=== PATIENT | male | born 1985 | race Caucasian/White ===

== ENCOUNTER 2017-03-08 05:43 | Inpatient (IN) | payer BC ==
[2017-03-08 06:27] LABS: Basophils % (A) 1 %; CHCM 34.6; Eosinophils # (A) 0.3 k/uL (0-0.7); Eosinophils % (A) 4 %; HCT 45.6 % (39.0-53.0); HDW 2.89; HGB 15.7 gm/dL (13.0-17.5); Luc # (Auto) 0.15; Luc % (Auto) 2; Lymphocytes # (A) 2.8 k/uL (1.0-4.8); Lymphocytes % (A) 38 %; MCH 28.9 pg (25.0-35.0); MCHC 34.4 g/dL (31.0-37.0); Mean Platelet Volume 6.7; Monocytes # (A) 0.5 k/uL (0-1.0); Monocytes % (A) 7 %; Neutrophils # (A) 3.5 k/uL (1.3-7.7); Neutrophils % (A) 48 %; RBC 5.42 m/uL (4.30-5.90); WBC 7.2 k/uL (3.8-10.6); WBC (Perox) 7.04
[2017-03-08] MEDS ORDERED: NITROGLYCERIN SL TABS 0.4 MG TAB SUBLINGUAL PRN ×2 (06:28→17:43)
[2017-03-08] MEDS ORDERED: HEPARIN SODIUM,PORCINE 5,000 UNIT/ML 1 ML VIAL IV PRN (06:28)
[2017-03-08] MEDS ORDERED: MORPHINE SULFATE 4 MG/ML SYRINGE IV PRN (06:28)
[2017-03-08] MEDS ORDERED: ASPIRIN 81 MG CHEW PO STA (06:28)
[2017-03-08] MEDS ORDERED: HEPARIN SODIUM,PORCINE 5,000 UNIT/ML 1 ML VIAL IV ONE (06:28)
--- NOTE | 2017-03-08 06:28 | ED ---
General Adult HPI - General Chief complaint: Chest Pain Stated complaint: Chest Pain Source: patient, RN notes reviewed, old records reviewed Mode of arrival: ambulatory Limitations: no limitations - History of Present Illness Initial comments: This is a 31-year-old male the ER for evaluation. This patient presents for evaluation of chest pain. Significant heart history with CAD stents, diabetes. Patient coming in with chest pain that started this morning when he woke up left-sided heaviness rating to left arm. No diaphoresis no shortness of breath no travel history, patient is on Effient. - Related Data Home Medications Medication Instructions Recorded Confirmed Lisinopril [Zestril] 5 mg PO BID 07/24/16 03/08/17 metFORMIN HCL [metFORMIN HCL ER] 1,000 mg PO BID 07/24/16 03/08/17 Empagliflozin [Jardiance] 25 mg PO DAILY 03/08/17 03/08/17 Metoprolol Tartrate [Lopressor] 50 mg PO BID 03/08/17 03/08/17 Previous Rx's Medication Instructions Recorded Aspirin 325 mg PO DAILY #30 tab 04/14/16 Atorvastatin [Lipitor] 80 mg PO HS #30 tab 04/14/16 Nitroglycerin Sl Tabs [Nitrostat] 0.4 mg SUBLINGUAL Q5M PRN #50 tab 04/14/16 Prasugrel [Effient] 10 mg PO DAILY #30 tab 07/26/16 Allergies Allergy/AdvReac Type Severity Reaction Status Date / Time No Known Allergies Allergy Verified 03/08/17 05:48 Review of Systems ROS Statement: Those systems with pertinent positive or pertinent negative responses have been documented in the HPI. ROS Other: All systems not noted in ROS Statement are negative. Past Medical History Past Medical History: Coronary Artery Disease (CAD), Chest Pain / Angina, Diabetes Mellitus, GERD/Reflux, Myocardial Infarction ([place]), Thyroid Disorder Additional Past Medical History / Comment(s): NIDDM type II, hx of HTN but after cardiac stenting and weight loss his blood pressure has been good, fungal mass R lung with surgical removal Last Myocardial Infarction Date:: DECEMBER 23, 2011 History of Any Multi-Drug Resistant Organisms: None Reported Past Surgical History: Heart Catheterization With Stent Additional Past Surgical History / Comment(s): WEDGE resection RIGHT LUNG 2011, . UNDESCENDED TESTICLE REMOVED Past Anesthesia/Blood Transfusion Reactions: No Reported Reaction Date of Last Stent Placement:: 2015 Past Psychological History: No Psychological Hx Reported Smoking Status: Never smoker Past Alcohol Use History: None Reported Past Drug Use History: None Reported - Past Family History Mother Family Medical History: Diabetes Mellitus Additional Family Medical History / Comment(s): NIDDM Father Additional Family Medical History / Comment(s): hypoglycemia. General Exam Limitations: no limitations General appearance: alert, in no apparent distress Head exam: Present: atraumatic, normocephalic, normal inspection Eye exam: Present: normal appearance, PERRL, EOMI. Absent: scleral icterus, conjunctival injection, periorbital swelling ENT exam: Present: normal exam, mucous membranes moist Neck exam: Present: normal inspection. Absent: tenderness, meningismus, lymphadenopathy Respiratory exam: Present: normal lung sounds bilaterally. Absent: respiratory distress, wheezes, rales, rhonchi, stridor Cardiovascular Exam: Present: regular rate, normal rhythm, normal heart sounds. Absent: systolic murmur, diastolic murmur, rubs, gallop, clicks GI/Abdominal exam: Present: soft, normal bowel sounds. Absent: distended, tenderness, guarding, rebound, rigid Extremities exam: Present: normal inspection, full ROM, normal capillary refill. Absent: tenderness, pedal edema, joint swelling, calf tenderness Back exam: Present: normal inspection Neurological exam: Present: alert, oriented X3, CN II-XII intact Psychiatric exam: Present: normal affect, normal mood Skin exam: Present: warm, dry, intact, normal color. Absent: rash Course Vital Signs 03/08/17 05:44 Temperature 98.3 F Pulse Rate 75 Respiratory 18 Rate Blood Pressure 189/102 O2 Sat by Pulse 99 Oximetry - Reevaluation(s) Reevaluation #1: 03/08/17 06:44 Patient still [place] at this time EKG Findings - EKG Comments: EKG Findings:: EKG shows normal sinus rhythm rate 69, MO 1:30, QRS 100, QTC 470 Medical Decision Making - Medical Decision Making 31 male in the ER for evaluation significant history of heart disease. Also stents placed. Patient feeling the chest pain is apyretic, evidence of pressure left-sided radiating to left arm. Initial EKG shows no still elevation , patient was admitted for cardiac observation, serial troponins imparting of cardiopulmonary status - Lab Data Result diagrams: 03/08/17 06:00 03/08/17 06:00 Lab Results 03/08/17 03/08/17 03/08/17 Range/Units 06:00 06:00 06:00 WBC 7.2 (3.8-10.6) k/uL RBC 5.42 (4.30-5.90) m/uL Hgb 15.7 (13.0-17.5) gm/dL Hct 45.6 (39.0-53.0) % MCV 84.0 (80.0-100.0) fL MCH 28.9 (25.0-35.0) pg MCHC 34.4 (31.0-37.0) g/dL RDW 13.0 (11.5-15.5) % Plt Count 235 (150-450) k/uL Neutrophils % 48 % Lymphocytes % 38 % Monocytes % 7 % Eosinophils % 4 % Basophils % 1 % Neutrophils # 3.5 (1.3-7.7) k/uL Lymphocytes # 2.8 (1.0-4.8) k/uL Monocytes # 0.5 (0-1.0) k/uL Eosinophils # 0.3 (0-0.7) k/uL Basophils # 0.0 (0-0.2) k/uL PT 9.8 (9.0-12.0) sec INR 1.0 (<1.2) APTT 23.1 (22.0-30.0) sec Sodium 141 (137-145) mmol/L Potassium 4.3 (3.5-5.1) mmol/L Chloride 104 (98-107) mmol/L Carbon Dioxide 27 (22-30) mmol/L Anion Gap 10 mmol/L BUN 9 (9-20) mg/dL Creatinine 0.75 (0.66-1.25) mg/dL Est GFR (MDRD) Af Amer >60 (>60 ml/min/1.73 sqM) Est GFR (MDRD) Non-Af >60 (>60 ml/min/1.73 sqM) Glucose 168 H (74-99) mg/dL Calcium 9.5 (8.4-10.2) mg/dL Magnesium 1.5 L (1.6-2.3) mg/dL Total Bilirubin 0.4 (0.2-1.3) mg/dL AST 22 (17-59) U/L ALT 45 (21-72) U/L Alkaline Phosphatase 79 (38-126) U/L Total Protein 7.1 (6.3-8.2) g/dL Albumin 4.4 (3.5-5.0) g/dL - Radiology Data Radiology results: report reviewed (Chest x-ray is negative), image reviewed Critical Care Time Critical Care Time: Yes Total Critical Care Time: 31 Disposition Clinical Impression: Unstable angina pectoris, Chest pain Disposition: ADMITTED IP TO THIS [facility] Condition: Serious Referrals: Noe Csatillo MD [Primary Care Provider] - 1-2 days
[2017-03-08 06:36] LABS: ALT 45 U/L (21-72); AST 22 U/L (17-59); Alkaline Phosphatase 79 U/L (38-126); Anion Gap 10 mmol/L; Blood Urea Nitrogen 9 mg/dL (9-20); Calcium 9.5 mg/dL (8.4-10.2); Carbon Dioxide 27 mmol/L (22-30); Chloride 104 mmol/L (98-107); Glucose 168 mg/dL (74-99); Magnesium 1.5 mg/dL (1.6-2.3); Non-African American GFR(MDRD) >60 (>60 ml/min/1.73 sqM); Partial Thromboplastin Time 23.1 sec (22.0-30.0); Potassium 4.3 mmol/L (3.5-5.1); Prothrombin Time 9.8 sec (9.0-12.0); Sodium 141 mmol/L (137-145); Total Bilirubin 0.4 mg/dL (0.2-1.3); Total Protein 7.1 g/dL (6.3-8.2)
[2017-03-08] MEDS: HEPARIN SODIUM,PORCINE/D5W PMX 25,000 UNIT in DEXTROSE/WATER 1 500ML.BAG IV SCH (06:44)
[2017-03-08 06:46] LABS: Creatine Kinase 76 U/L (55-170)
[2017-03-08 06:58] LABS: Creatine Kinase MB 0.9 ng/mL (0.0-2.4); Troponin I <0.012 ng/mL (0.000-0.034)
--- NOTE | 2017-03-08 07:07 | XR ---
EXAM: XR Chest, 2 Views CLINICAL HISTORY: Reason: Chest Pain TECHNIQUE: Frontal and lateral views of the chest. COMPARISON: 07/23/2016 FINDINGS: Lungs: Stable elevation of the right hemidiaphragm. No focal consolidation. Pleural space: Unremarkable. No pneumothorax. Heart: Unremarkable. No cardiomegaly. Mediastinum: Unremarkable. Bones/joints: No acute osseous abnormality. Tubes, lines and devices: Telemetry leads overlie the patient. IMPRESSION: No acute cardiopulmonary process.
[2017-03-08] MEDS ORDERED: Magnesium Replacement Protocol 1 EACH MISC MISCELLANE PRN (09:02)
[2017-03-08 11:59] LABS: Glucose,Whole Blood 146 mg/dL (75-99)
[2017-03-08 12:51] LABS: Creatine Kinase MB 0.7 ng/mL (0.0-2.4)
--- NOTE | 2017-03-08 13:32 | P.CRDCN ---
History of Present Illness Consult date: 03/08/17 Consult reason: chest pain History of present illness: This is a 31-year-old male with history of diabetes, hypertension, CAD with multiple stents. He currently takes lisinopril 5 mg, aspirin 81 mg, Effient 10 mg, Lopressor 50 mg and atorvastatin 80 mg by mouth he is compliant with his medical therapy. He presents to emergency department with complaints of chest heaviness that started approximately 3:00 this morning. He was considering this to be chest congestion at the initial presentation. And then on his way to work around 5:30 the pain started radiating down into the left arm. He denies nausea, diaphoresis, palpitations, dizziness or vomiting. His most recent Was performed in June [address] Giles. At that time he received a stent to the circumflex. Per the patient he has an extensive history of what he believes to be 7 stents. He follows with Doctor St. Malik Salguero. He states he recently had an exercise stress test in November which she states was normal. His EKG indicates a normal sinus mechanism. Chest x-ray is negative for any acute cardiopulmonary process. He continues to complain of chest heaviness but the pain in the arm has subsided. Review of Systems REVIEW OF SYSTEMS: Patient denies any shortness of breath. No diaphoresis. He denies headache, dizziness, blurred vision, double vision. No dyspnea on exertion. Patient denies any stomach discomfort. No nausea, vomiting. No hematochezia. No hematemesis. Denies any black stools or blood in his stools. No syncope. No palpitations. No cough. No recent fever or chills. Denies dysuria or hematuria. No muscle weakness or numbness. Continues to complain of ongoing chest heaviness. Past Medical History Past Medical History: Coronary Artery Disease (CAD), Chest Pain / Angina, Diabetes Mellitus, GERD/Reflux, [place]ocardial Infarction ([place]), Thyroid Disorder Additional Past Medical History / Comment(s): NIDDM type II, hx of HTN but after cardiac stenting and weight loss his blood pressure has been good, fungal mass R lung with surgical removal Last Myocardial Infarction Date:: DECEMBER 23, 2011 History of Any Multi-Drug Resistant Organisms: None Reported Past Surgical History: Heart Catheterization With Stent Additional Past Surgical History / Comment(s): WEDGE resection RIGHT LUNG 2012, . UNDESCENDED TESTICLE REMOVED Past Anesthesia/Blood Transfusion Reactions: No Reported Reaction Date of Last Stent Placement:: 2015 Past Psychological History: No Psychological Hx Reported Smoking Status: Never smoker Past Alcohol Use History: None Reported Past Drug Use History: None Reported - Past Family History Mother Family Medical History: Diabetes Mellitus Additional Family Medical History / Comment(s): NIDDM Father Additional Family Medical History / Comment(s): hypoglycemia. Medications and Allergies Home Medications Medication Instructions Recorded Confirmed Type Lisinopril [Zestril] 5 mg PO BID 07/24/16 03/08/17 History Empagliflozin [Jardiance] 25 mg PO DAILY 03/08/17 03/08/17 History Metoprolol Tartrate [Lopressor] 50 mg PO BID 03/08/17 03/08/17 History metFORMIN HCL [metFORMIN HCL] 1,000 mg PO BID 03/08/17 03/08/17 History Allergies Allergy/AdvReac Type Severity Reaction Status Date / Time No Known Allergies Allergy Verified 03/08/17 06:57 Physical Exam Vitals: Vital Signs Temp Pulse Resp BP Pulse Ox 03/08/17 06:53 97.9 F 66 16 128/70 99 03/08/17 05:44 98.3 F 75 18 189/102 99 Intake and Output 03/07/17 03/08/17 03/08/17 22:59 06:59 14:59 Other: Weight 122.47 kg GENERAL: This is a 31-year-old male in no apparent distress at the time of my examination. HEENT: Head is atraumatic, normocephalic. Pupils are equal, round. Sclerae anicteric. Conjunctivae are clear. Mucous membranes of the mouth are moist. Neck is supple. There is no jugular venous distention. No carotid bruit is heard. LUNGS: Clear to auscultation and precussion. No chest wall tenderness is noted on palpation or with deep breathing. HEART: Regular rate and rhythm without murmurs, rubs or gallops. S1 and S2 heard. ABDOMEN: Soft, nontender. Bowel sounds are heard. No organomegaly noted. EXTREMITIES: 2+ peripheral pulses with no evidence of peripheral edema and no calf tenderness noted. NEUROLOGIC: Patient is awake, alert and oriented x3. Results 03/08/17 06:00 03/08/17 06:00 Cardiac Enzymes 03/08/17 03/08/17 Range/Units 06:00 06:00 AST 22 (17-59) U/L CK-MB (CK-2) 0.9 (0.0-2.4) ng/mL Troponin I <0.012 (0.000-0.034) ng/mL Coagulation 03/08/17 Range/Units 06:00 PT 9.8 (9.0-12.0) sec APTT 23.1 (22.0-30.0) sec CBC 03/08/17 Range/Units 06:00 WBC 7.2 (3.8-10.6) k/uL RBC 5.42 (4.30-5.90) m/uL Hgb 15.7 (13.0-17.5) gm/dL Hct 45.6 (39.0-53.0) % Plt Count 235 (150-450) k/uL Comprehensive Metabolic Panel 03/08/17 Range/Units 06:00 Sodium 141 (137-145) mmol/L Potassium 4.3 (3.5-5.1) mmol/L Chloride 104 (98-107) mmol/L Carbon Dioxide 27 (22-30) mmol/L BUN 9 (9-20) mg/dL Creatinine 0.75 (0.66-1.25) mg/dL Glucose 168 H (74-99) mg/dL Calcium 9.5 (8.4-10.2) mg/dL AST 22 (17-59) U/L ALT 45 (21-72) U/L Alkaline Phosphatase 79 (38-126) U/L Total Protein 7.1 (6.3-8.2) g/dL Albumin 4.4 (3.5-5.0) g/dL Current Medications Generic Name Dose Route Start Last Admin Trade Name Freq PRN Reason Stop Dose Admin Aspirin 325 mg 03/09/17 09:00 Aspirin PO DAILY SULEMAN Heparin Sodium (Porcine) 0 unit 03/08/17 06:28 Heparin IV Q6HR PRN Low PTT Protocol Heparin Sodium/Dextrose 25,000 500 mls @ 20.08 mls/hr 03/08/17 06:30 06:44 unit/ IV Solution IV 8.2 units/kg/hr .Q24H SULEMAN 20.08 mls/hr Protocol Administration 8.2 UNITS/KG/HR Morphine Sulfate 4 mg 03/08/17 06:28 Morphine Sulfate (Inj) IV Q5M PRN Chest Pain Nitroglycerin 0.4 mg 03/08/17 06:28 Nitrostat SUBLINGUAL Q5M PRN Chest Pain Intake and Output 03/07/17 03/08/17 03/08/17 22:59 06:59 14:59 Other: Weight 122.47 kg 03/08/17 06:00 03/08/17 06:00 - EKG Interpretation EKG: sinus rhythm, normal QRS, normal ST/T, no acute changes Assessment and Plan Plan: ASSESSMENT 1. Chest pain, history of CAD with multiple stents 2. History of diabetes mellitus PLAN Records have been reviewed and in conversation with the patient he states he recently had a stress test with Dr. Dempsey in November which was negative. We have requested for the nurse to ambulate the patient in the hallway and assess for further or increasing chest pain. The patient is asymptomatic with ambulation. This is not suggestive of an ongoing acute coronary syndrome. At this time we will continue IV heparin until we get a third troponin. At that time if the troponin is normal heparin can be discontinued. And the patient can be discharged home. He has been instructed to follow-up with Dr. Dempsey within the week. Nurse Practitioner note has been reviewed, I agree with a documented findings and plan of care. Patient was seen and examined.
[2017-03-08 17:29] LABS: Creatine Kinase 72 U/L (55-170)
[2017-03-08 17:40] LABS: Creatine Kinase MB 0.7 ng/mL (0.0-2.4); Troponin I <0.012 ng/mL (0.000-0.034)
--- NOTE | 2017-03-08 17:48 | P.HPIM ---
History of Present Illness Patient is a 30-year-old male with came in with compensative chest pressure like sensation which started yesterday constant in nature was 5 or 10 in severity now 3 x 10 in severity with nitroglycerin and patient is presently on IV heparin. Patient has significant cardiac history patient had a cardiac catheterization twice last year. With multiple stents in place. Patient had a stress test month of November which was negative. Patient denied any lightheadedness patient denied any diaphoresis associated with the chest pain but his chest pain is similar to the chest pain when he had acute myocardial infarction, patient denied any palpitations dizziness vomiting patient denied any cough chest pain is nonpruritic in nature not associated with food. Patient's 3 sets of troponins are negative EKG did not show any significant acute ST-T wave changes, patient continues to have chest pain discussed with Dr. SUNSHINE messer and he is recommending cardiac catheterization with continued chest pain if it continues. Review of Systems REVIEW OF SYSTEMS: CONSTITUTIONAL: No fever, no malaise, no fatigue. HEENT: No recent visual problems or hearing problems. Denied any sore throat. CARDIOVASCULAR: No orthopnea, PND, no palpitations, no syncope. PULMONARY: No shortness of breath, no cough, no hemoptysis. GASTROINTESTINAL: No diarrhea, no nausea, no vomiting, no abdominal pain. Normoactive bowel sounds. NEUROLOGICAL: No headaches, no weakness, no numbness. HEMATOLOGICAL: Denies any bleeding or petechiae. GENITOURINARY: Denies any burning micturition, frequency, or urgency. MUSCULOSKELETAL/RHEUMATOLOGICAL: Denies any joint pain, swelling, or any muscle pain. ENDOCRINE: Denies any polyuria or polydipsia. The rest of the 14-point review of systems is negative. Past Medical History Past Medical History: Coronary Artery Disease (CAD), Chest Pain / Angina, Diabetes Mellitus, GERD/Reflux, Myocardial Infarction ([place]), Thyroid Disorder Additional Past Medical History / Comment(s): NIDDM type II, hx of HTN but after cardiac stenting and weight loss his blood pressure has been good, fungal mass R lung with surgical removal Last Myocardial Infarction Date:: DECEMBER 23, 2011 History of Any Multi-Drug Resistant Organisms: None Reported Past Surgical History: Heart Catheterization With Stent Additional Past Surgical History / Comment(s): WEDGE resection RIGHT LUNG 2011, . UNDESCENDED TESTICLE REMOVED Past Anesthesia/Blood Transfusion Reactions: No Reported Reaction Date of Last Stent Placement:: 2015 Past Psychological History: No Psychological Hx Reported Smoking Status: Never smoker Past Alcohol Use History: None Reported Past Drug Use History: None Reported - Past Family History Mother Family Medical History: Diabetes Mellitus Additional Family Medical History / Comment(s): NIDDM Father Additional Family Medical History / Comment(s): hypoglycemia. Medications and Allergies Home Medications Medication Instructions Recorded Confirmed Type Lisinopril [Zestril] 5 mg PO BID 07/24/16 03/08/17 History Empagliflozin [Jardiance] 25 mg PO DAILY 03/08/17 03/08/17 History Metoprolol Tartrate [Lopressor] 50 mg PO BID 03/08/17 03/08/17 History metFORMIN HCL [metFORMIN HCL] 1,000 mg PO BID 03/08/17 03/08/17 History Allergies Allergy/AdvReac Type Severity Reaction Status Date / Time No Known Allergies Allergy Verified 03/08/17 06:57 Physical Exam Vitals: Vital Signs Temp Pulse Pulse Resp BP BP Pulse Ox 03/08/17 17:05 98 03/08/17 15:39 97.6 F 74 18 161/90 96 03/08/17 11:40 98.3 F 77 18 148/91 96 03/08/17 08:00 98.2 F 75 18 167/99 98 03/08/17 06:53 97.9 F 66 16 128/70 99 03/08/17 05:44 98.3 F 75 18 189/102 99 Intake and Output 03/08/17 03/08/17 03/08/17 06:59 14:59 22:59 Intake Total 360 Balance 360 Intake: Oral 360 Other: Voiding Method Toilet Weight 122.47 kg 119.2 kg Patient Weight 03/09/17 06:59 Weight 119.2 kg PHYSICAL EXAMINATION: GENERAL: The patient is alert and oriented x3, not in any acute distress. Well developed, well nourished. HEENT: Pupils are round and equally reacting to light. EOMI. No scleral icterus. No conjunctival pallor. Normocephalic, atraumatic. No pharyngeal erythema. No thyromegaly. CARDIOVASCULAR: S1 and S2 present. No murmurs, rubs, or gallops. PULMONARY: Chest is clear to auscultation, no wheezing or crackles. ABDOMEN: Soft, nontender, nondistended, normoactive bowel sounds. No palpable organomegaly. MUSCULOSKELETAL: No joint swelling or deformity. EXTREMITIES: No cyanosis, clubbing, or pedal edema. NEUROLOGICAL: Gross neurological examination did not reveal any focal deficits. SKIN: No rashes. Results CBC & Chem 7: 03/08/17 06:00 03/08/17 06:00 Labs: Abnormal Lab Results - Last 24 Hours (Table) 03/08/17 03/08/17 Range/Units 06:00 11:57 Glucose 168 H (74-99) mg/dL POC Glucose (mg/dL) 146 H (75-99) mg/dL Magnesium 1.5 L (1.6-2.3) mg/dL Thrombosis Risk Factor Assmnt - Choose All That Apply Any of the Below Risk Factors Present?: Yes Each Factor Represents 1 point: Obesity (BMI >25) Other Risk Factors: No Other congenital or acquired thrombophilia - If yes, enter type in comment: No Thrombosis Risk Factor Assessment Total Risk Factor Score: 1 Thrombosis Risk Factor Assessment Level: Low Risk Assessment and Plan Plan: 1 chest pain, cannot rule out unstable angina, plan as mentioned above patient was sent continued on dual antiplatelet therapy beta ernesto statin. Patient is competent with his medication regimen. #2 hypertension #3 type 2 diabetes mellitus: Oral hypoglycemic agents will be discontinued and the patient will be on sliding scale insulin because of possibility of cardiac catheterization tomorrow. #3 hypothyroidism #4 gastroesophageal reflux disease For above-mentioned chronic medical problems his home medications can be continued.
[2017-03-08] MEDS: MAGNESIUM SULFATE-D5W PMX 1 GM in DEXTROSE/WATER 1 100ML.BAG IVPB SCH ×2 (18:19→19:33)
[2017-03-08] MEDS ORDERED: ALPRAZolam 0.25 MG TAB PO PRN (19:24)
[2017-03-08] MEDS ORDERED: ALPRAZolam 0.5 MG TAB PO PRN (19:24)
[2017-03-08] MEDS: LISINOPRIL 5 MG TAB PO SCH (20:02)
[2017-03-08] MEDS: METOPROLOL TARTRATE 50 MG TAB PO SCH (20:02)
[2017-03-08] MEDS: ATORVASTATIN 80 MG TAB PO SCH (20:02)
[2017-03-08 20:13] LABS: Basophils % (A) 1 %; CH 28.7; CHCM 34.2; Eosinophils # (A) 0.3 k/uL (0-0.7); Eosinophils % (A) 4 %; HCT 43.7 % (39.0-53.0); HDW 2.86; HGB 15.3 gm/dL (13.0-17.5); Luc # (Auto) 0.14; Luc % (Auto) 2; Lymphocytes # (A) 2.6 k/uL (1.0-4.8); Lymphocytes % (A) 37 %; MCH 29.4 pg (25.0-35.0); Mean Platelet Volume 6.9; Monocytes # (A) 0.4 k/uL (0-1.0); Monocytes % (A) 5 %; Neutrophils # (A) 3.6 k/uL (1.3-7.7); Neutrophils % (A) 51 %; WBC (Perox) 6.95
[2017-03-08 20:39] LABS: Glucose,Whole Blood 140 mg/dL (75-99)
[2017-03-08] MEDS: INSULIN LISPRO (humaLOG) 300 UNIT/3 ML VIAL SQ SCH (22:59)
[2017-03-08] MEDS ORDERED: SODIUM CHLORIDE 0.9% 1,000 ML in EMPTY BAG 1 BAG IV ONE (23:55)
[2017-03-09] MEDS: LISINOPRIL 5 MG TAB PO SCH ×2 (06:10→21:12)
[2017-03-09] MEDS: ASPIRIN 325 MG TAB PO SCH (06:10)
[2017-03-09] MEDS: METOPROLOL TARTRATE 50 MG TAB PO SCH ×2 (06:10→21:12)
[2017-03-09] MEDS: PRASUGREL 10 MG TAB PO SCH (06:11)
[2017-03-09] MEDS: ATORVASTATIN 80 MG TAB PO SCH (06:11)
[2017-03-09] MEDS: HEPARIN SODIUM,PORCINE/D5W PMX 25,000 UNIT in DEXTROSE/WATER 1 500ML.BAG IV SCH (06:45)
[2017-03-09 06:58] LABS: Glucose,Whole Blood 142 mg/dL (75-99)
[2017-03-09] MEDS ORDERED: LIDOCAINE 2% INJ 20 MG/ML (20 ML MDV) ONE (07:25)
[2017-03-09 07:34] LABS: Magnesium 1.8 mg/dL (1.6-2.3)
[2017-03-09] MEDS ORDERED: MIDAZOLAM 2 MG/2 ML VIAL ONE (07:45)
[2017-03-09] MEDS ORDERED: fentaNYL (PF) 50 MCG/ML 2 ML AMP ONE (07:46)
[2017-03-09] MEDS ORDERED: IV FLUID CONTINUATION 1,000 ML IV ONE (07:54)
[2017-03-09] MEDS ORDERED: fentaNYL (PF) 50 MCG/ML 2 ML AMP IVP ONE (08:05)
[2017-03-09] MEDS ORDERED: MIDAZOLAM 2 MG/2 ML VIAL IVP ONE ×2 (08:05)
[2017-03-09] MEDS ORDERED: LIDOCAINE 2% INJ 20 MG/ML SQ ONE (08:07)
[2017-03-09] MEDS ORDERED: METOPROLOL TARTRATE 5 MG/5 ML VIAL IVP ONE ×2 (08:19→08:22)
[2017-03-09] MEDS ORDERED: NITROGLYCERIN OINT 1 INCH/GM PACKET TOPICAL ONE (08:23)
[2017-03-09] MEDS ORDERED: BIVALIRUDIN BOLUS 250 MG/50 ML IV ONE (08:37)
[2017-03-09] MEDS ORDERED: BIVALIRUDIN 250 MG in SODIUM CHLORIDE 0.9% 50 ML IV ONE ×2 (08:39→08:45)
--- NOTE | 2017-03-09 08:40 | P.PCN ---
Date of Procedure: 03/09/17 Preoperative Diagnosis: Unstable angina Postoperative Diagnosis: Critical lesion involving the proximal RCA within the stent Procedure(s) Performed: Left heart catheterization without left ventriculography Implants: Indications for Procedure: Operative Findings: Description of Procedure: HISTORY: This is a 31-year-old gentleman with history of diabetes hypertension and ischemic heart disease with a previous stent placement who presented to the hospital with symptoms of chest pain suggestive of unstable angina. His cardiac enzymes studies are within normal limits. Patient is advised to have a cardiac catheterization for definitive diagnosis. CONSENT:I have discussed the risks, benefits and alternative therapies for the above-mentioned procedure and for both sedation/analgesia as well as necessary blood product administration, if indicated, as they pertain to this patient. The patient has indicated understanding and acceptance of the risks and procedures discussed. PROCEDURE: Patient was brought to the lab in a fasting state. Patient was given some IV sedation. The right groin is infiltrated with lidocaine and right femoral artery was entered using Seldinger technique. A 6-Greek catheter was left in place and selective coronary arteriography was performed. Patient tolerated the procedure well. Patient is found to have significant in -stent stenosis of the RCA with intermediate disease in the distal circumflex and also LAD. Patient went on to have stent placement of the RCA by Dr. Giles . Conscious Sedation: Versed 1mg Fentanyl :150 g Duration 18 minutes HEMODYNAMICS: . End-diastolic pressure is 20-25. There was no gradient across the aortic valve SELECTIVE CORONARY ARTERIOGRAPHY: . LEFT MAIN: Long and without any significant stenosis THE LEFT ANTERIOR DESCENDING CORONARY ARTERY: Fair caliber vessel with mild diffuse plaque. There appears to be about 50-60% lesion in the distal LAD which is stable THE LEFT CIRCUMFLEX AND IS CORONARY ARTERY: . Patent stent in the proximal circumflex. About 50-60% lesion in the mid circumflex which is stable compared to the previous studies THE RIGHT CORONARY ARTERY: 80% in-stent stenosis of the proximal RCA LEFT VENTRICULOGRAPHY: Not performed FINAL IMPRESSION: . 80% in-stent stenosis of the RCA. Stable intermediate disease involving the LAD and also circumflex. PLAN: Maximum medical therapy. Proceed with stent placement of the RCA and this is being done by Dr. Giles PROGNOSIS: Guarded
[2017-03-09] MEDS ORDERED: NITROGLYCERIN 1000MCG/10ML SYRINGE INTRACORON ONE (08:48)
[2017-03-09] MEDS ORDERED: IOHEXOL 350 MG/ML 125ML BOTTLE INJ ONE (09:00)
[2017-03-09] MEDS ORDERED: ASPIRIN 325 MG TAB PO SCH (09:00)
[2017-03-09] MEDS ORDERED: MAG HYDROX/AL HYDROX/SIMETH 30 ML CUP PO PRN (09:11)
[2017-03-09] MEDS ORDERED: NITROGLYCERIN SL TABS 0.4 MG TAB SUBLINGUAL PRN (09:11)
[2017-03-09] MEDS ORDERED: ATROPINE SULFATE 0.1 MG/ML 10ML SYRINGE IV PRN (09:11)
[2017-03-09] MEDS ORDERED: ZOLPIDEM 5 MG TAB PO PRN (09:11)
[2017-03-09] MEDS ORDERED: RX INFO: IV CONTRAST WAS GIVEN 1 EACH MISC MISCELLANE PRN (09:11)
[2017-03-09] MEDS ORDERED: SODIUM CHLORIDE 0.9% 1,000 ML IV SCH (09:15)
[2017-03-09 09:24] LABS: Glucose,Whole Blood 164 mg/dL (75-99)
[2017-03-09] MEDS: INSULIN LISPRO (humaLOG) 300 UNIT/3 ML VIAL SQ SCH ×4 (09:26→21:05)
[2017-03-09 12:13] LABS: Glucose,Whole Blood 147 mg/dL (75-99)
--- NOTE | 2017-03-09 17:05 | P.PN ---
Subjective Patient came in with symptoms of chest pain. Patient underwent a catheterization which showed in-stent stenosis of RCA patient underwent restenting of the previous stent. Patient is clinically doing well chest pain- free. Patient denied any chest pain, fever, shortness of breath, lightheadedness, dysuria. Objective - Vital Signs Vital signs: Vital Signs Temp 97.7 F 03/09/17 07:30 Pulse 76 03/09/17 13:30 Resp 18 03/09/17 13:30 BP 149/90 03/09/17 13:30 Pulse Ox 98 03/09/17 13:30 Intake & Output 03/08/17 03/09/17 03/09/17 18:59 06:59 18:59 Intake Total 720 690 Output Total 300 Balance 720 390 Weight 119.2 kg Intake: IV 290 Sodium Chloride 0.9% 1, 100 000 ml @ 100 mls/hr IV . Q10H [facility] Rx#:[id number] Oral 720 400 Output: Urine 300 Other: Voiding Method Toilet Toilet - Exam PHYSICAL EXAMINATION: GENERAL: The patient is alert and oriented x3, not in any acute distress. Well developed, well nourished. HEENT: Pupils are round and equally reacting to light. EOMI. No scleral icterus. No conjunctival pallor. Normocephalic, atraumatic. No pharyngeal erythema. No thyromegaly. CARDIOVASCULAR: S1 and S2 present. No murmurs, rubs, or gallops. PULMONARY: Chest is clear to auscultation, no wheezing or crackles. ABDOMEN: Soft, nontender, nondistended, normoactive bowel sounds. No palpable organomegaly. MUSCULOSKELETAL: No joint swelling or deformity. EXTREMITIES: No cyanosis, clubbing, or pedal edema. NEUROLOGICAL: Gross neurological examination did not reveal any focal deficits. SKIN: No rashes. - Labs CBC & Chem 7: 03/08/17 19:46 03/08/17 06:00 Labs: Abnormal Lab Results - Last 24 Hours (Table) 03/08/17 03/08/17 03/09/17 Range/Units 19:46 20:37 06:40 POC Glucose (mg/dL) 140 H (75-99) mg/dL Hemoglobin A1c 8.0 H (4.2-6.1) % Triglycerides 184 H (<150) mg/dL HDL Cholesterol 28 L (40-60) mg/dL 03/09/17 03/09/17 03/09/17 Range/Units 06:56 09:21 12:10 POC Glucose (mg/dL) 142 H 164 H 147 H (75-99) mg/dL Hemoglobin A1c (4.2-6.1) % Triglycerides (<150) mg/dL HDL Cholesterol (40-60) mg/dL Assessment and Plan Plan: 1 chest pain, patient does have in stent stenosis of RCA which was restented again. Continue with dual and platelet therapy, beta ernesto, lisinopril. #2 hypertension #3 type 2 diabetes mellitus: Continue with sliding scale insulin #3 hypothyroidism #4 gastroesophageal reflux disease For above-mentioned chronic medical problems his home medications can be continued.
[2017-03-09 17:07] LABS: Glucose,Whole Blood 134 mg/dL (75-99)
[2017-03-09] MEDS ORDERED: Magnesium Replacement Protocol 1 EACH MISC MISCELLANE PRN (20:26)
[2017-03-09] MEDS: MAGNESIUM SULFATE-D5W PMX 1 GM in DEXTROSE/WATER 1 100ML.BAG IVPB SCH ×2 (21:12→22:40)
[2017-03-09 21:16] LABS: Glucose,Whole Blood 110 mg/dL (75-99)
[2017-03-10 02:05] VITALS: RESP 18
[2017-03-10 05:34] LABS: Glucose,Whole Blood 141 mg/dL (75-99)
[2017-03-10 06:25] LABS: Anion Gap 9 mmol/L; Blood Urea Nitrogen 10 mg/dL (9-20); Carbon Dioxide 27 mmol/L (22-30); Chloride 104 mmol/L (98-107); Glucose 136 mg/dL (74-99); Magnesium 1.8 mg/dL (1.6-2.3); Non-African American GFR(MDRD) >60 (>60 ml/min/1.73 sqM); Potassium 4.1 mmol/L (3.5-5.1); Sodium 140 mmol/L (137-145)
[2017-03-10] MEDS: INSULIN LISPRO (humaLOG) 300 UNIT/3 ML VIAL SQ SCH ×2 (06:41→12:19)
[2017-03-10] MEDS: ASPIRIN 325 MG TAB PO SCH (08:29)
[2017-03-10] MEDS: METOPROLOL TARTRATE 50 MG TAB PO SCH (08:29)
[2017-03-10] MEDS: PRASUGREL 10 MG TAB PO SCH (08:29)
[2017-03-10] MEDS: LISINOPRIL 5 MG TAB PO SCH (08:30)
--- NOTE | 2017-03-10 08:55 | PN ---
Mr. Morse is in sinus rhythm, comfortable. Continues to have some chest pressure, seems atypical but given the face he had previous multivessel intervention, even though three troponins are negative, I am recommending coronary angiography and I discussed with the patient regarding the rationale, risks, benefits and options. He and his understand all details and wish to proceed with the procedure which will be performed by Dr. Thomas today. Vital signs are stable. S1/S2 are normal. Lungs are clear. Abdomen and lower extremity are unremarkable. MTDD
--- NOTE | 2017-03-10 11:02 | PTCA ---
DATE OF PROCEDURE: 03/09/2017 Mr. Morse is a 31-year-old male with a known history of coronary artery disease , status post multi-vessel angioplasty and stenting in the past who presented with symptoms of chest discomfort. He underwent cardiac catheterization by Dr. Thomas and was found to have significant in-stent restenosis of the mid right coronary artery. In view of that, recommendation was made regarding angioplasty and stenting. The procedure, its risks and complications were described to the patient, who was in full understanding and agreement. PROCEDURE: Using a 6 Persian FR4 guiding catheter, the right coronary ostium was cannulated. Following that, a 0.014 balanced medium weight J wire was advanced across the lesion, positioned distally. Then a 3.0 x 12 mm Trek balloon was advanced. One inflation at 12 atmospheres was done. Following that, the balloon was removed and a 3.25 x 15 mm Xience Alpine stent was deployed, post dilated at 16 atmospheres. After the last inflation, after appropriate weight, the balloon and the guidewire were withdrawn back into the guiding catheter. Images were obtained and repeated. Those images revealed stable successful stenting. At that point, the guiding catheter, the balloon and the guidewire were removed. The sheath was removed. Hemostasis was attained with deployment of an AngioSeal. There was no immediate complication. Patient was returned to his room in stable condition. Of note, the patient received Angiomax per protocol. He had EKG changes with the inflation, with no significant chest pain. RESULTS: Successful stenting of the mid right coronary artery with in-stent restenosis with reduction of stenosis from 80% to 0%. RECOMMENDATIONS: Patient will be continued on aspirin, Effient, beta ernesto, Lisinopril, statin. The importance of dual antiplatelet treatment was discussed with the patient and his family, who were in full understanding and agreement. The duration of the procedure was 19 minutes. SANDY
--- NOTE | 2017-03-10 11:12 | MISC ---
LETTER March 09, 2017 RE: Thee Morse (81) Dear Dr. Noe Castillo, I had the pleasure of performing coronary angioplasty and stenting on Mr. Morse at [facility] on March 09, and a full copy of the procedure note will be forwarded to you. In brief, he underwent successful stenting of his mid right coronary artery. I am hopeful that this procedure will stabilize his status and I would recommend continuing on dual antiplatelet treatment as initiated. Thank you again for allowing me to participate in his care. Please feel free to call with any questions. Sincerely, Shaka Giles M.D. SANDY
[2017-03-10 11:42] LABS: Glucose,Whole Blood 160 mg/dL (75-99)
[2017-03-10 12:35] VITALS: BP 136/94; PULSE 64; TEMP 97.2
--- NOTE | 2017-03-10 12:49 | P.PN ---
Subjective Principal diagnosis: CAD and status post PCI This is a pleasant 31-year-old gentleman who presented to the hospital with a chest discomfort and underwent a heart catheterization by Dr. Dr. Thomas and was found to have severe instent restenosis of the RCA. The patient underwent stenting of the RCA with a good angiographic results and without any complications. On follow-up with him today, he denies having any chest pain or discomfort or difficulty breathing. Objective - Vital Signs Vital signs: Vital Signs Temp 97.2 F L 03/10/17 12:00 Pulse 64 03/10/17 12:00 Resp 18 03/10/17 12:00 BP 136/94 03/10/17 12:00 Pulse Ox 97 03/10/17 12:00 Intake & Output 03/09/17 03/10/17 03/10/17 18:59 06:59 18:59 Intake Total 870 240 Output Total 300 Balance 570 240 Intake: IV 290 Sodium Chloride 0.9% 1, 100 000 ml @ 100 mls/hr IV . Q10H [facility] Rx#:[id number] Oral 580 240 Output: Urine 300 Other: Voiding Method Toilet Toilet # Voids 1 - Constitutional General appearance: Present: no acute distress - Respiratory Respiratory: bilateral: CTA - Cardiovascular Rhythm: regular Heart sounds: normal: S1, S2 - Labs CBC & Chem 7: 03/08/17 19:46 03/10/17 05:59 Labs: Abnormal Lab Results - Last 24 Hours (Table) 03/08/17 03/09/17 03/09/17 Range/Units 19:46 16:43 21:04 Glucose (74-99) mg/dL POC Glucose (mg/dL) 134 H 110 H (75-99) mg/dL Hemoglobin A1c 8.0 H (4.2-6.1) % 03/10/17 03/10/17 03/10/17 Range/Units 05:32 05:59 11:37 Glucose 136 H (74-99) mg/dL POC Glucose (mg/dL) 141 H 160 H (75-99) mg/dL Hemoglobin A1c (4.2-6.1) % Assessment and Plan Plan: This is a pleasant 31-year-old gentleman who just underwent stenting of the RCA. From a cardiac vascular standpoint of view, the patient can be discharged home on dual antiplatelet therapy. He sees a chief sales officer out of the town.
--- NOTE | 2017-03-10 17:23 | P.DS ---
Providers Date of admission: 03/08/17 06:28 Attending physician: Leticia Wang Consults: 03/08/17 06:28 Consult Physician Urgent Consulting Provider: Mando Omer Consult Reason/Comments: cp Do you want consulting provider notified?: Yes 03/09/17 09:11 Consult Physician Routine Consulting Provider: [facility] Consult Reason/Comments: Post Interventional patient Do you want consulting provider notified?: Already Contacted Primary care physician: Noe Castillo [facility] Course: Patient came in with symptoms of chest pain. Patient underwent a catheterization which showed in-stent stenosis of RCA patient underwent restenting of the previous stent. Patient is clinically doing well chest pain- free. PHYSICAL EXAMINATION: GENERAL: The patient is alert and oriented x3, not in any acute distress. Well developed, well nourished. HEENT: Pupils are round and equally reacting to light. EOMI. No scleral icterus. No conjunctival pallor. Normocephalic, atraumatic. No pharyngeal erythema. No thyromegaly. CARDIOVASCULAR: S1 and S2 present. No murmurs, rubs, or gallops. PULMONARY: Chest is clear to auscultation, no wheezing or crackles. ABDOMEN: Soft, nontender, nondistended, normoactive bowel sounds. No palpable organomegaly. MUSCULOSKELETAL: No joint swelling or deformity. EXTREMITIES: No cyanosis, clubbing, or pedal edema. NEUROLOGICAL: Gross neurological examination did not reveal any focal deficits. SKIN: No rashes. 1 chest pain, patient does have in stent stenosis of RCA which was restented again. Continue with dual and platelet therapy, beta ernesto, lisinopril. #2 hypertension #3 type 2 diabetes mellitus: Continue with sliding scale insulin #3 hypothyroidism #4 gastroesophageal reflux disease Patient Condition at Discharge: Serious Plan - Discharge Summary New Discharge Prescriptions: No Action Aspirin 325 mg PO DAILY #30 tab Atorvastatin [Lipitor] 80 mg PO HS #30 tab Nitroglycerin Sl Tabs [Nitrostat] 0.4 mg SUBLINGUAL Q5M PRN #50 tab PRN Reason: Chest Pain Lisinopril [Zestril] 5 mg PO BID Prasugrel [Effient] 10 mg PO DAILY #30 tab Empagliflozin [Jardiance] 25 mg PO DAILY metFORMIN HCL [metFORMIN HCL] 1,000 mg PO BID Metoprolol Tartrate [Lopressor] 50 mg PO BID Discharge Medication List Aspirin 325 mg PO DAILY #30 tab 04/14/16 [Rx] Atorvastatin [Lipitor] 80 mg PO HS #30 tab 04/14/16 [Rx] Nitroglycerin Sl Tabs [Nitrostat] 0.4 mg SUBLINGUAL Q5M PRN #50 tab 04/14/16 [Rx ] Lisinopril [Zestril] 5 mg PO BID 07/24/16 [History] Prasugrel [Effient] 10 mg PO DAILY #30 tab 07/26/16 [Rx] Empagliflozin [Jardiance] 25 mg PO DAILY 03/08/17 [History] Metoprolol Tartrate [Lopressor] 50 mg PO BID 03/08/17 [History] metFORMIN HCL [metFORMIN HCL] 1,000 mg PO BID 03/08/17 [History] Follow up Appointment(s)/Referral(s): Noe Castillo MD [Primary Care Provider] - 3 Days (Please call to make an appointment during normal business hours) Jocelin Thomas MD [STAFF PHYSICIAN] - 1 Week (Please call office to make an appiontment during normal business hours) Patient Instructions/Handouts: *Surgery [facility] - After Heart Catheterization - [employer] Instructions, Angina (DC) Discharge Disposition: HOME SELF-CARE
== END 2017-03-10 16:41 | disposition home or self-care (01) | DRG 247 ==
LOC: EC 05:43 → 3OBS 06:28 → OBSVTOIN 06:28 → 6SEL 03-09 09:30
PROVIDERS: ADMIT Hospitalist; ATTEND Hospitalist
PROC: 4A023N7 Measurement of Cardiac Sampling and Pressure, Left Heart, Percutaneous Approach (ICD-10-PCS; 2017-03-09)
PROC: B2111ZZ Fluoroscopy of Multiple Coronary Arteries using Low Osmolar Contrast (ICD-10-PCS; 2017-03-09)
PROC: 027034Z Dilation of Coronary Artery, One Artery with Drug-eluting Intraluminal Device, Percutaneous Approach (ICD-10-PCS; principal; 2017-03-09 07:38)
DX: T82.855A Stenosis of coronary artery stent, initial encounter (principal); I25.110 Atherosclerotic heart disease of native coronary artery with unstable angina pectoris; I10 Essential (primary) hypertension; E03.9 Hypothyroidism, unspecified; K21.9 Gastro-esophageal reflux disease without esophagitis; I25.2 Old myocardial infarction; E11.9 Type 2 diabetes mellitus without complications; Z79.82 Long term (current) use of aspirin; Z79.84 Long term (current) use of oral hypoglycemic drugs; Z79.899 Other long term (current) drug therapy; Z79.02 Long term (current) use of antithrombotics/antiplatelets; Y84.0 Cardiac catheterization as the cause of abnormal reaction of the patient, or of later complication, without mention of misadventure at the time of the procedure; Y83.1 Surgical operation with implant of artificial internal device as the cause of abnormal reaction of the patient, or of later complication, without mention of misadventure at the time of the procedure
CPT/HCPCS: 36415; 71020; 80048; 80053; 80061; 82550; 82553; 83036; 83735; 84484; 85025; 85610; 85730; 93005; 94760; 96375; 99291

== ENCOUNTER 2017-08-27 05:00 | Observation (INO) | payer BC ==
[2017-08-27] MEDS ORDERED: NITROGLYCERIN SL TABS 0.4 MG TAB SUBLINGUAL STA (05:46)
[2017-08-27] MEDS ORDERED: ASPIRIN 81 MG PO STA (05:46)
[2017-08-27 05:48] LABS: ALT 39 U/L (21-72); AST 29 U/L (17-59); Albumin 4.5 g/dL (3.5-5.0); Alkaline Phosphatase 83 U/L (38-126); Anion Gap 12 mmol/L; Blood Urea Nitrogen 14 mg/dL (9-20); Calcium 9.9 mg/dL (8.4-10.2); Carbon Dioxide 28 mmol/L (22-30); Chloride 99 mmol/L (98-107); Glucose 203 mg/dL (74-99); Magnesium 1.5 mg/dL (1.6-2.3); Potassium 4.7 mmol/L (3.5-5.1); Sodium 139 mmol/L (137-145); Total Bilirubin 0.4 mg/dL (0.2-1.3); Total Protein 7.2 g/dL (6.3-8.2)
[2017-08-27] MEDS ORDERED: METOPROLOL TARTRATE 50 MG TAB PO STA (05:50)
--- NOTE | 2017-08-27 05:50 | ED ---
Chest Pain HPI - General Chief Complaint: Chest Pain Stated Complaint: chest pain Time Seen by Provider: 08/27/17 05:19 Source: patient Mode of arrival: ambulatory Limitations: no limitations - History of Present Illness Initial Comments: Patient is a 32-year-old man with history of previous stent placements, who states that about an hour ago he was just waking up and noticed onset of some substernal pain with radiation to his left shoulder. He states that in response to that he took a nitroglycerin which did relieve the pain. MD Complaint: chest pain Onset/Timin -: hour(s) Onset: during rest Pain Location: substernal Pain Radiation: LUE Severity: moderate Quality: heaviness Consistency: constant Improves With: nitroglycerin Worsens With: nothing Treatments Prior to Arrival: nitroglycerin - Related Data Home Medications Medication Instructions Recorded Confirmed Lisinopril [Zestril] 5 mg PO BID 07/24/16 03/08/17 Empagliflozin [Jardiance] 25 mg PO DAILY 03/08/17 03/08/17 Metoprolol Tartrate [Lopressor] 50 mg PO BID 03/08/17 03/08/17 metFORMIN HCL [metFORMIN HCL] 1,000 mg PO BID 03/08/17 03/08/17 Previous Rx's Medication Instructions Recorded Aspirin 325 mg PO DAILY #30 tab 04/14/16 Atorvastatin [Lipitor] 80 mg PO HS #30 tab 04/14/16 Nitroglycerin Sl Tabs [Nitrostat] 0.4 mg SUBLINGUAL Q5M PRN #50 tab 04/14/16 Prasugrel [Effient] 10 mg PO DAILY #30 tab 07/26/16 Allergies Allergy/AdvReac Type Severity Reaction Status Date / Time No Known Allergies Allergy Verified 03/08/17 06:57 Review of Systems ROS Statement: Those systems with pertinent positive or pertinent negative responses have been documented in the HPI. ROS Other: All systems not noted in ROS Statement are negative. Constitutional: Denies: fever, chills Respiratory: Denies: cough, dyspnea Cardiovascular: Reports: chest pain. Denies: palpitations, edema, syncope Gastrointestinal: Denies: abdominal pain, nausea, vomiting Genitourinary: Denies: dysuria, hematuria Musculoskeletal: Denies: back pain Skin: Denies: rash Neurological: Denies: headache EKG Findings - EKG Results: EKG: interpreted by FREDERIC ARAYA, sinus rhythm, normal axis, normal QRS, normal ST/ T, no acute changes - HI, Pacemaker, Normal: Normal tracing: normal tracing Past Medical History Past Medical History: Coronary Artery Disease (CAD), Chest Pain / Angina, Diabetes Mellitus, GERD/Reflux, Myocardial Infarction ([place]), Thyroid Disorder Additional Past Medical History / Comment(s): NIDDM type II, hx of HTN but after cardiac stenting and weight loss his blood pressure has been good, 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 UNDESCENDED TESTICLE REMOVED Past Anesthesia/Blood Transfusion Reactions: No Reported Reaction Date of Last Stent Placement:: 2015 Past Psychological History: No Psychological Hx Reported Smoking Status: Never smoker Past Alcohol Use History: None Reported Past Drug Use History: None Reported - Past Family History Mother Family Medical History: Diabetes Mellitus Additional Family Medical History / Comment(s): NIDDM Father Additional Family Medical History / Comment(s): hypoglycemia. General Exam Limitations: no limitations General appearance: alert, in no apparent distress, obese Head exam: Present: atraumatic, normocephalic Eye exam: Present: normal appearance. Absent: scleral icterus, conjunctival injection ENT exam: Present: normal oropharynx Neck exam: Present: normal inspection, full ROM Respiratory exam: Present: normal lung sounds bilaterally. Absent: respiratory distress, wheezes, rales, rhonchi, stridor Cardiovascular Exam: Present: regular rate, normal rhythm, normal heart sounds. Absent: systolic murmur, diastolic murmur, rubs, gallop GI/Abdominal exam: Present: soft. Absent: distended, tenderness, guarding, rebound, mass Extremities exam: Present: normal inspection, normal capillary refill. Absent: pedal edema, calf tenderness Back exam: Present: normal inspection. Absent: CVA tenderness (R), CVA tenderness (L) Neurological exam: Present: alert Skin exam: Present: warm, dry, intact, normal color. Absent: rash Course Vital Signs 08/27/17 08/27/17 08/27/17 05:10 06:08 06:52 Temperature 99.2 F Pulse Rate 93 101 H 89 Respiratory 18 16 15 Rate Blood Pressure 160/108 154/77 156/85 O2 Sat by Pulse 97 95 98 Oximetry Disposition Clinical Impression: Chest pain Disposition: ADMITTED IP TO THIS HOSP Condition: Good Referrals: Noe Castillo MD [Primary Care Provider] - 1-2 days
[2017-08-27 05:53] LABS: Basophils % (A) 0 %; Eosinophils # (A) 0.4 k/uL (0-0.7); Eosinophils % (A) 4 %; HCT 45.2 % (39.0-53.0); HGB 15.6 gm/dL (13.0-17.5); Lymphocytes # (A) 2.2 k/uL (1.0-4.8); Lymphocytes % (A) 25 %; MCHC 34.6 g/dL (31.0-37.0); MCV 83.8 fL (80.0-100.0); Mean Platelet Volume 7.1; Monocytes # (A) 0.5 k/uL (0-1.0); Monocytes % (A) 6 %; Neutrophils # (A) 5.6 k/uL (1.3-7.7); Neutrophils % (A) 63 %; Platelet Count 287 k/uL (150-450); RDW 12.8 % (11.5-15.5); WBC 8.8 k/uL (3.8-10.6)
--- NOTE | 2017-08-27 05:56 | XR ---
INDICATION: Chest pain COMPARISON: CXR 03/08/17 FINDINGS: Frontal and lateral views of the chest are obtained. The cardiomediastinal silhouette and pulmonary vascularity are within normal limits. Stable elevation of the right hemidiaphragm. Lungs are clear. No pleural effusion or pneumothorax. Bony elements are within normal limits. IMPRESSION: No radiographic evidence of acute cardiopulmonary disease.
[2017-08-27 05:58] LABS: INR 0.9 (<1.2); Prothrombin Time 9.5 sec (9.0-12.0)
[2017-08-27 06:29] LABS: Creatine Kinase MB 0.7 ng/mL (0.0-2.4); Troponin I 0.013 ng/mL (0.000-0.034)
[2017-08-27] MEDS ORDERED: NITROGLYCERIN SL TABS 0.4 MG TAB SUBLINGUAL PRN (06:54)
--- NOTE | 2017-08-27 08:31 | P.HPIM ---
History of Present Illness H&P Date: 08/27/17 Chief Complaint: Chest pain The patient is here essentially for recurrent chest pain. Has known history of coronary disease with multiple stents and history of OH in the past. He had restenosis of stent in February 2017. The patient otherwise came in with similar symptoms. The patient has been somewhat noncompliant with his medication and he ran out of his Effient last . Cardiology has been consulted and had a long discussion with the patient Review of Systems Constitutional: Denies chills, Denies fever Eyes: denies blurred vision, denies pain Ears, nose, mouth and throat: Denies headache, Denies sore throat Cardiovascular: Reports as per HPI, Reports chest pain Respiratory: Denies cough Musculoskeletal: Denies myalgias Integumentary: Denies pruritus, Denies rash Past Medical History Past Medical History: Coronary Artery Disease (CAD), Chest Pain / Angina, Diabetes Mellitus, GERD/Reflux, Hyperlipidemia, Hypertension, Myocardial Infarction ([place]), Thyroid Disorder Additional Past Medical History / Comment(s): NIDDM type II, 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 UNDESCENDED TESTICLE REMOVED Past Anesthesia/Blood Transfusion Reactions: No Reported Reaction Date of Last Stent Placement:: 03/09/17 Smoking Status: Never smoker - Past Family History Mother Family Medical History: Diabetes Mellitus Additional Family Medical History / Comment(s): NIDDM Father Additional Family Medical History / Comment(s): hypoglycemia. Medications and Allergies Home Medications Medication Instructions Recorded Confirmed Type Aspirin 325 mg PO DAILY #30 tab 04/14/16 08/27/17 Rx Atorvastatin [Lipitor] 80 mg PO HS #30 tab 04/14/16 08/27/17 Rx Nitroglycerin Sl Tabs [Nitrostat] 0.4 mg SUBLINGUAL Q5M PRN #50 tab 04/14/16 Rx Lisinopril [Zestril] 10 mg PO BID 07/24/16 08/27/17 History Prasugrel [Effient] 10 mg PO DAILY #30 tab 07/26/16 08/27/17 Rx Metoprolol Tartrate [Lopressor] 50 mg PO BID 03/08/17 08/27/17 History metFORMIN HCL [metFORMIN HCL] 1,000 mg PO BID 03/08/17 08/27/17 History Liraglutide [Victoza 2-Aurelio] 1.2 mg SQ HS 08/27/17 08/27/17 History Allergies Allergy/AdvReac Type Severity Reaction Status Date / Time No Known Allergies Allergy Verified 08/27/17 07:10 Physical Exam Vitals: Vital Signs Temp Pulse Resp BP Pulse Ox 08/27/17 07:21 99.2 F 88 18 155/85 97 08/27/17 07:16 88 18 155/85 97 08/27/17 06:52 89 15 156/85 98 08/27/17 06:08 101 H 16 154/77 95 08/27/17 05:10 99.2 F 93 18 160/108 97 Intake and Output 08/26/17 08/27/17 08/27/17 22:59 06:59 14:59 Other: Weight 117.934 kg - Constitutional General appearance: no acute distress - EENT Eyes: EOMI - Neck Neck: no lymphadenopathy - Respiratory Respiratory: bilateral: CTA - Cardiovascular Rhythm: regular Heart sounds: normal: S1, S2 - Gastrointestinal General gastrointestinal: soft, no tenderness Results CBC & Chem 7: 08/27/17 05:14 08/27/17 05:14 Labs: Abnormal Lab Results - Last 24 Hours (Table) 08/27/17 Range/Units 05:14 Glucose 203 H (74-99) mg/dL Magnesium 1.5 L (1.6-2.3) mg/dL Thrombosis Risk Factor Assmnt - Choose All That Apply Any of the Below Risk Factors Present?: Yes Each Factor Represents 1 point: Obesity (BMI >25) Other Risk Factors: No Other congenital or acquired thrombophilia - If yes, enter type in comment: No Thrombosis Risk Factor Assessment Total Risk Factor Score: 1 Thrombosis Risk Factor Assessment Level: Low Risk Assessment and Plan (1) Chest pain Current Visit: Yes Status: Acute Code(s): R07.9 - CHEST PAIN, UNSPECIFIED SNOMED Code(s): 75038167 (2) CAD (coronary artery disease) Current Visit: No Status: Acute Code(s): I25.10 - ATHSCL HEART DISEASE OF [place] CORONARY ARTERY W/O ANG PCTRS SNOMED Code(s): 97587253 (3) Diabetes Current Visit: No Status: Acute Code(s): E11.9 - TYPE 2 DIABETES MELLITUS WITHOUT COMPLICATIONS SNOMED Code(s): 34732322 (4) HTN (hypertension) Current Visit: No Status: Acute Code(s): I10 - ESSENTIAL (PRIMARY) HYPERTENSION SNOMED Code(s): 61921696 (5) Presence of stent in left circumflex coronary artery Current Visit: No Status: Acute Code(s): Z95.5 - PRESENCE OF CORONARY ANGIOPLASTY IMPLANT AND GRAFT SNOMED Code(s): 981066137 Plan: Recurrent cardiac catheterization is anticipated. We'll go ahead and place on sliding scale insulin. Reconcile home medications. Prognosis guarded secondary to family history and multiple comorbidities. See orders otherwise.
[2017-08-27 08:50] LABS: Glucose,Whole Blood 167 mg/dL (75-99)
[2017-08-27] MEDS: ASPIRIN 325 MG TAB PO SCH (10:08)
[2017-08-27] MEDS: METOPROLOL TARTRATE 50 MG TAB PO SCH ×2 (10:08→20:57)
[2017-08-27] MEDS: LISINOPRIL 5 MG TAB PO SCH ×2 (10:09→20:57)
[2017-08-27] MEDS: MAGNESIUM OXIDE 400 MG TAB PO SCH ×2 (10:09→20:57)
[2017-08-27] MEDS: JARDIANCE 25MG PO SCH (10:09)
[2017-08-27] MEDS: metFORMIN 500 MG TAB PO SCH ×2 (10:09→18:08)
[2017-08-27] MEDS: PRASUGREL 10 MG TAB PO SCH (10:09)
--- NOTE | 2017-08-27 10:43 | P.CRDCN ---
History of Present Illness Consult date: 08/27/17 Consult reason: chest pain History of present illness: Mr. Morse is a pleasant 32-year-old male past medical history significant for coronary artery disease, diabetes mellitus, dyslipidemia, hypertension and gastroesophageal reflux disease. He follows with a Dr. Dempsey at [facility]. His most recent cardiac catheterization was performed here emergently in February which revealed in-stent restenosis mid RCA as well as intermediate 50-60% disease in the mid circumflex and 50-60% is in the distal LAD. At that time he was started on Effient. He presented to the hospital with complaints of midsternal chest pain radiating to the left arm. He states this pain was present when he woke up this morning he took one nitroglycerin at home which mildly relieve the pain and took a second when he got to the hospital which took the pain completely away. He denies associated shortness of breath, palpitations, dizziness, nausea, vomiting or diaphoresis. He states he has not taken his Effient since because the pharmacy was unable to fill his prescription. At the time my exam he is chest pain-free. Telemetry tracings been unremarkable and cardiac enzymes are negative only 1. EKG on arrival sinus mechanism with no acute ST or T-wave abnormalities. Chest x-ray is negative for acute cardiopulmonary process. Laboratory data reviewed, hemoglobin 15.6, platelets 287, potassium 4.7, magnesium 1.5, creatinine 0.8, troponin negative 1. Current cardiac medications include Effient 10 mg daily, metoprolol 50 mg twice a day, lisinopril 10 mg twice a day, Lipitor 80 mg daily and aspirin 325 mg daily. Most recent echocardiogram from March 2016 reveals preserved left ventricular systolic function with ejection fraction 55-60%, mild aortic valve sclerosis without stenosis, mild MR and mild TR. Review of Systems At the time of my exam: CONSTITUTIONAL: Denies fever. Denies chills. EYES: Denies blurred vision. Denies vision changes. Denies eye pain. EARS, NOSE, MOUTH & THROAT: Denies headache. Denies sore throat. Denies ear pain. CARDIOVASCULAR: Denies chest pain. Denies shortness of breath. Denies orthopnea. Denies PND. Denies palpitations. RESPIRATORY: Denies cough. GASTROINTESTINAL: Denies abdominal pain. Denies diarrhea. Denies constipation. Denies nausea. Denies vomiting. MUSCULOSKELETAL: Denies myalgias. INTEGUMENTARY: Denies pruitis. Denies rash. NEUROLOGIC: Denies numbness. Denies tingling. Denies weakness. PSYCHIATRIC: Denies anxiety. Denies depression. ENDOCRINE: Denies fatigue. Denies weight change. Denies polydipsia. Denies polyurina. GENITOURINARY: Denies burning, hematuria or urgency with micturation. HEMATOLOGIC: Denies history of anemia. Denies bleeding. 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 UNDESCENDED TESTICLE REMOVED Past Anesthesia/Blood Transfusion Reactions: No Reported Reaction Date of Last Stent Placement:: 03/09/17 Smoking Status: Never smoker - Past Family History Mother Family Medical History: Diabetes Mellitus Additional Family Medical History / Comment(s): NIDDM Father Additional Family Medical History / Comment(s): hypoglycemia. Medications and Allergies Home Medications Medication Instructions Recorded Confirmed Type Aspirin 325 mg PO DAILY #30 tab 04/14/16 08/27/17 Rx Atorvastatin [Lipitor] 80 mg PO HS #30 tab 04/14/16 08/27/17 Rx Nitroglycerin Sl Tabs [Nitrostat] 0.4 mg SUBLINGUAL Q5M PRN #50 tab 04/14/16 Rx Lisinopril [Zestril] 10 mg PO BID 07/24/16 08/27/17 History Prasugrel [Effient] 10 mg PO DAILY #30 tab 07/26/16 08/27/17 Rx Metoprolol Tartrate [Lopressor] 50 mg PO BID 03/08/17 08/27/17 History metFORMIN HCL [metFORMIN HCL] 1,000 mg PO BID 03/08/17 08/27/17 History Liraglutide [Victoza 2-Aurelio] 1.2 mg SQ HS 08/27/17 08/27/17 History Allergies Allergy/AdvReac Type Severity Reaction Status Date / Time No Known Allergies Allergy Verified 08/27/17 07:10 Physical Exam Vitals: Vital Signs Temp Pulse Pulse Resp BP BP Pulse Ox 08/27/17 08:00 98.2 F 85 16 135/87 97 08/27/17 07:21 99.2 F 88 18 155/85 97 08/27/17 07:16 88 18 155/85 97 08/27/17 06:52 89 15 156/85 98 08/27/17 06:08 101 H 16 154/77 95 08/27/17 05:10 99.2 F 93 18 160/108 97 Intake and Output 08/26/17 08/27/17 08/27/17 22:59 06:59 14:59 Other: Voiding Method Toilet Weight 117.934 kg 118.3 kg Patient Weight 08/28/17 06:59 Weight 118.3 kg Blood pressure 135/87 heart rate 85 afebrile GENERAL: This is a 32-year-old male in no apparent distress at the time of my examination. HEENT: Head is atraumatic, normocephalic. Pupils are equal, round. Sclerae anicteric. Conjunctivae are clear. Mucous membranes of the mouth are moist. Neck is supple. There is no jugular venous distention. No carotid bruit is heard. LUNGS: Clear to auscultation no wheezes, rales or rhonchi. No chest wall tenderness is noted on palpation or with deep breathing. HEART: Regular rate and rhythm without murmurs, rubs or gallops. S1 and S2 heard. ABDOMEN: Soft, nontender. Bowel sounds are heard. No organomegaly noted. EXTREMITIES: No evidence of peripheral edema and no calf tenderness noted. VASCULAR: Radial and dorsalis pedis pulses palpated, no evidence of clubbing. NEUROLOGIC: Patient is awake, alert and oriented x3. Results 08/27/17 05:14 08/27/17 05:14 Cardiac Enzymes 08/27/17 08/27/17 Range/Units 05:14 05:14 AST 29 (17-59) U/L CK-MB (CK-2) 0.7 (0.0-2.4) ng/mL Troponin I 0.013 (0.000-0.034) ng/mL Coagulation 08/27/17 Range/Units 05:14 PT 9.5 (9.0-12.0) sec APTT 22.0 (22.0-30.0) sec CBC 08/27/17 Range/Units 05:14 WBC 8.8 (3.8-10.6) k/uL RBC 5.40 (4.30-5.90) m/uL Hgb 15.6 (13.0-17.5) gm/dL Hct 45.2 (39.0-53.0) % Plt Count 287 (150-450) k/uL Comprehensive Metabolic Panel 08/27/17 Range/Units 05:14 Sodium 139 (137-145) mmol/L Potassium 4.7 (3.5-5.1) mmol/L Chloride 99 (98-107) mmol/L Carbon Dioxide 28 (22-30) mmol/L BUN 14 (9-20) mg/dL Creatinine 0.80 (0.66-1.25) mg/dL Glucose 203 H (74-99) mg/dL Calcium 9.9 (8.4-10.2) mg/dL AST 29 (17-59) U/L ALT 39 (21-72) U/L Alkaline Phosphatase 83 (38-126) U/L Total Protein 7.2 (6.3-8.2) g/dL Albumin 4.5 (3.5-5.0) g/dL Current Medications Generic Name Dose Route Start Last Admin Trade Name Freq PRN Reason Stop Dose Admin Aspirin 325 mg 08/27/17 09:00 08/27/17 10:08 Aspirin PO Not Given DAILY [facility] Atorvastatin Calcium 80 mg 08/27/17 21:00 Lipitor PO HS [facility] Insulin Aspart 0 unit 08/27/17 12:30 Novolog SQ ACHS [facility] Protocol Lisinopril 5 mg 08/27/17 09:00 08/27/17 10:09 Zestril PO 5 mg BID [facility] Administration Magnesium Oxide 400 mg 08/27/17 09:00 08/27/17 10:09 Mag-Ox PO 400 mg BID [facility] Administration Metformin HCl 1,000 mg 08/27/17 07:30 08/27/17 10:09 Glucophage PO 1,000 mg BID-W/MEALS [facility] Administration Metoprolol Tartrate 50 mg 08/27/17 09:00 08/27/17 10:08 Lopressor PO Not Given BID [facility] Nitroglycerin 0.4 mg 08/27/17 06:54 Nitrostat SUBLINGUAL Q5M PRN Chest Pain Jardiance 25mg 25 mg 08/27/17 09:00 08/27/17 10:09 PO Not Given DAILY [facility] Prasugrel 10 mg 08/27/17 09:00 08/27/17 10:09 Effient PO 10 mg DAILY [facility] Administration Intake and Output 08/26/17 08/27/17 08/27/17 22:59 06:59 14:59 Other: Voiding Method Toilet Weight 117.934 kg 118.3 kg Patient Weight 08/28/17 06:59 Weight 118.3 kg 08/27/17 05:14 08/27/17 05:14 Assessment and Plan Assessment: ASSESSMENT 1. Symptoms suggestive of unstable angina in a patient with a known history of multiple stent placements with recent history of noncompliance of anti-regular medication 2. History of coronary artery disease, most recent intervention February 2017 in- stent restenosis of the mid RCA 3. Diabetes mellitus 4. Hypertension 5. Dyslipidemia PLAN Obtain 2-D echocardiogram and Doppler study to assess cardiac structure and function. Continue to obtain serial cardiac enzymes and EKGs. Continue Effient, Lopressor, lisinopril, atorvastatin and aspirin. Nothing by mouth after midnight. Obtain records from his primary ladies' locker room attendant Dr. Dempsey. Further recommendations based upon clinical course. Thank you kindly for this consultation. Nurse Practitioner note has been reviewed, I agree with a documented findings and plan of care. Patient was seen and examined.
[2017-08-27 11:47] LABS: Glucose,Whole Blood 171 mg/dL (75-99)
--- NOTE | 2017-08-27 12:18 | ECHOF ---
Referral Reason:chest pain MEASUREMENTS -------- HEIGHT: 177.8 cm WEIGHT: 117.9 kg BP: 155/85 RVIDd: 3.2 cm (< 3.3) IVSd: 1.1 cm (0.6 - 1.1) LVIDd: 5.2 cm (3.9 - 5.3) LVPWd: 1.1 cm (0.6 - 1.1) IVSs: 1.7 cm LVIDs: 4.1 cm LVPWs: 1.6 cm LAESV Index (A-L): 11.02 ml/m Ao Diam: 3.0 cm (2.0 - 3.7) AV Cusp: 2.2 cm (1.5 - 2.6) LA Diam: 4.2 cm (2.7 - 3.8) MV E Carlos: 0.61 m/s MV DecT: 262 ms MV A Carlos: 0.52 m/s MV E/A Ratio: 1.17 RAP: 5.00 mmHg RVSP: 9.77 mmHg MV EF SLOPE: 83.36 mm/s (70 - 150) MV EXCURSION: 1.81 cm (> 18.000) FINDINGS -------- Sinus rhythm. This was a technically adequate study. The left ventricular size is normal. There is borderline concentric left ventricular hypertrophy. Overall left ventricular systolic function is normal with, an EF between 55 - 60 %. The right ventricle is normal in size and function. Normal LA size by volume 22+/-6 ml/m2. The right atrium is normal in size. Aortic valve is trileaflet and is mildly thickened. There is no evidence of aortic regurgitation. There is no evidence of aortic stenosis. The mitral valve leaflets are mildly thickened. There is trace mitral regurgitation. Trace tricuspid regurgitation present. Right ventricular systolic pressure is normal at < 35 mmHg. There is no evidence of pulmonary hypertension. The pulmonic valve was not well visualized. The aortic root size is normal. Normal inferior vena cava with normal inspiratory collapse consistent with estimated right atrial pre ssure of 5 mmHg. The pericardium is normal. There is no pericardial effusion. CONCLUSIONS -------- 1. Sinus rhythm. 2. This was a technically adequate study. 3. The left ventricular size is normal. 4. There is borderline concentric left ventricular hypertrophy. 5. Overall left ventricular systolic function is normal with, an EF between 55 - 60 %. 6. Normal LA size by volume 22+/-6 ml/m2. 7. Aortic valve is trileaflet and is mildly thickened. 8. The mitral valve leaflets are mildly thickened. 9. There is trace mitral regurgitation. 10. Trace tricuspid regurgitation present. 11. Right ventricular systolic pressure is normal at < 35 mmHg. 12. There is no evidence of pulmonary hypertension. 13. The pulmonic valve was not well visualized. 14. The aortic root size is normal. 15. There is no pericardial effusion. CUT OFF MACHINE HELPER: Idris Livingston RDCS
[2017-08-27 12:31] LABS: Creatine Kinase 70 U/L (55-170)
[2017-08-27 12:45] LABS: Creatine Kinase MB 0.5 ng/mL (0.0-2.4); Troponin I <0.012 ng/mL (0.000-0.034)
[2017-08-27] MEDS: INSULIN ASPART 100 UNIT/ML 1 ML 10 ML VIAL SQ SCH ×3 (12:46→20:57)
[2017-08-27 15:30] VITALS: RESP 18
[2017-08-27 17:14] LABS: Glucose,Whole Blood 103 mg/dL (75-99)
[2017-08-27 18:50] LABS: Creatine Kinase 68 U/L (55-170)
[2017-08-27 18:59] LABS: Creatine Kinase MB 0.4 ng/mL (0.0-2.4)
[2017-08-27 19:15] LABS: Troponin I <0.012 ng/mL (0.000-0.034)
[2017-08-27 19:52] LABS: Hemoglobin A1C 8.2 % (4.0-6.0)
[2017-08-27 20:05] LABS: Glucose,Whole Blood 140 mg/dL (75-99)
[2017-08-27] MEDS ORDERED: ATORVASTATIN 80 MG TAB PO SCH (21:00)
[2017-08-28 05:40] LABS: Cholesterol 183 mg/dL (<200); HDL Cholesterol 31 mg/dL (40-60); LDL Cholesterol,Calculated 84 mg/dL (0-99); Triglycerides 342 mg/dL (<150)
[2017-08-28 07:01] LABS: Glucose,Whole Blood 150 mg/dL (75-99)
[2017-08-28 08:16] VITALS: TEMP 98.1
[2017-08-28] MEDS ORDERED: ASPIRIN 325 MG TAB PO SCH (09:00)
--- NOTE | 2017-08-28 09:30 | P.PN ---
Subjective Progress Note Date: 08/28/17 Principal diagnosis: Chest pain This is a pleasant 32-year-old gentleman with a past medical history significant for coronary artery disease, diabetes, hypertension, and dyslipidemia presented to the hospital complaining of chest discomfort. The patient does follow with a software product specialist out of the town. He is known to have coronary artery disease and he underwent stenting in the past. The patient was ruled out for acute coronary event. The cardiac enzymes came in to be unremarkable. The EKG did not show any significant ST or T-wave abnormalities. He scheduled to undergo a stress test this morning and will follow-up with that. Objective - Vital Signs Vital signs: Vital Signs Temp 98.1 F 08/28/17 08:00 Pulse 77 08/28/17 08:00 Resp 18 08/28/17 08:00 BP 160/88 08/28/17 08:00 Pulse Ox 97 08/28/17 08:00 Intake & Output 08/27/17 08/28/17 08/28/17 18:59 06:59 18:59 Intake Total 460 360 Balance 460 360 Weight 118.3 kg Intake: Oral 460 360 Other: Voiding Method Toilet Toilet Toilet # Voids 4 1 - Constitutional General appearance: Present: no acute distress - Labs CBC & Chem 7: 08/27/17 05:14 08/27/17 05:14 Labs: Abnormal Lab Results - Last 24 Hours (Table) 08/27/17 08/27/17 08/27/17 Range/Units 05:14 11:24 11:46 POC Glucose (mg/dL) 171 H (75-99) mg/dL Hemoglobin A1c 8.2 H (4.0-6.0) % Triglycerides 342 H (<150) mg/dL HDL Cholesterol 31 L (40-60) mg/dL 08/27/17 08/27/17 08/28/17 Range/Units 17:11 20:02 06:56 POC Glucose (mg/dL) 103 H 140 H 150 H (75-99) mg/dL Hemoglobin A1c (4.0-6.0) % Triglycerides (<150) mg/dL HDL Cholesterol (40-60) mg/dL Assessment and Plan Assessment: Assessment #1 chest discomfort #2 known history of coronary artery disease with prior revascularization #3 multiple comorbid conditions Plan #1 the patient was ruled out for acute coronary event #2 if he is scheduled to undergo a stress test this morning #3 follow-up with the patient.
[2017-08-28] MEDS: INSULIN ASPART 100 UNIT/ML 1 ML 10 ML VIAL SQ SCH ×2 (10:48→13:40)
[2017-08-28] MEDS: PRASUGREL 10 MG TAB PO SCH (10:51)
[2017-08-28] MEDS: MAGNESIUM OXIDE 400 MG TAB PO SCH (10:51)
[2017-08-28] MEDS: LISINOPRIL 5 MG TAB PO SCH (10:51)
[2017-08-28] MEDS: METOPROLOL TARTRATE 50 MG TAB PO SCH (10:51)
[2017-08-28] MEDS: ASPIRIN 325 MG TAB PO SCH (10:51)
[2017-08-28] MEDS: metFORMIN 500 MG TAB PO SCH (10:51)
[2017-08-28] MEDS: JARDIANCE 25MG PO SCH (10:52)
--- NOTE | 2017-08-28 11:14 | ECHOS ---
STRESS ECHOCARDIOGRAM DATE OF SERVICE: 08/28/2017 INDICATION OF THE STUDY: Chest pain. MEDICATIONS: BASELINE HEART RATE: 89 BASELINE BLOOD PRESSURE: 125/61 MAXIMUM HEART RATE: 160 MAXIMUM BLOOD PRESSURE: 201/73 85% MPHR: 158 100% MPHR: 186 METS: 10.3 MAXIMUM STAGE REACHED: III TOTAL EXERCISE TIME: 9 minutes CLINICAL INFORMATION: STRESS DATA: Pretesting physical examination showed a heart rate of 89, pressure is 125/61 mmHg. Baseline EKG showed sinus mechanism. The patient exercised on the treadmill according to Kervin protocol for a total of 9 minutes and achieved 10.3 METs. The max heart rate was 160, which is about 86% of maximum predicted heart rate. Maximum blood pressure was 201/73 mmHg. Clinically the patient did not have any symptoms of chest pain or discomfort and the EKG did not show any significant ST or T- wave abnormalities consistent with ischemia. ECHOCARDIOGRAM IMAGES: On echocardiogram images from parasternal long axis view, parasternal short axis view, apical 4 chamber and apical 2 chamber view were obtained as the baseline images, at the peak of the heart rate, as well as on recovery. The echocardiogram images showed good augmentation of the left ventricular systolic function without any evidence of wall motion abnormalities consistent with ischemia. CONCLUSION: 1. Excellent exercise capacity. 2. Normal EKG in response to exercise. 3. Normal echocardiogram in response exercise. MMODL / IJN: [id number] /
[2017-08-28 11:51] VITALS: BP 115/59; PULSE 95
[2017-08-28 12:02] LABS: Glucose,Whole Blood 157 mg/dL (75-99)
--- NOTE | 2017-09-14 22:48 | P.DS ---
Providers Date of admission: 08/27/17 06:54 Attending physician: Noe Castillo Consults: 08/27/17 06:54 Consult Physician Routine Consulting Provider: Joel Miles Consult Reason/Comments: chest pain Do you want consulting provider notified?: Yes Primary care physician: Noe Castillo - Discharge Diagnosis(es) (1) Chest pain Status: Acute (2) CAD (coronary artery disease) Status: Acute (3) Diabetes Status: Acute (4) HTN (hypertension) Status: Acute (5) Presence of stent in left circumflex coronary artery Status: Acute Hospital Course: This is discharge summary 32-year-old white male with known history of insulin dependent diabetes which is type II dependent with known history of he was unstable angina and myocardial infarction with stent. We were concerned as a care team because he was off certain medications for the last several days. The patient had stress testing done after evaluation by cardiology. The patient is not discharged in stable condition to follow-up with me in about 1 week. Reiteration of diet and exercise with compliance of medication was reiterated to the patient. Patient Condition at Discharge: Good Plan - Discharge Summary Discharge Rx Participant: No New Discharge Prescriptions: No Action Aspirin 325 mg PO DAILY #30 tab Atorvastatin [Lipitor] 80 mg PO HS #30 tab Nitroglycerin Sl Tabs [Nitrostat] 0.4 mg SUBLINGUAL Q5M PRN #50 tab PRN Reason: Chest Pain Lisinopril [Zestril] 10 mg PO BID Prasugrel [Effient] 10 mg PO DAILY #30 tab metFORMIN HCL [metFORMIN HCL] 1,000 mg PO BID Metoprolol Tartrate [Lopressor] 50 mg PO BID Liraglutide [Victoza 2-Aurelio] 1.2 mg SQ HS Discharge Medication List Aspirin 325 mg PO DAILY #30 tab 04/14/16 [Rx] Atorvastatin [Lipitor] 80 mg PO HS #30 tab 04/14/16 [Rx] Nitroglycerin Sl Tabs [Nitrostat] 0.4 mg SUBLINGUAL Q5M PRN #50 tab 04/14/16 [Rx ] Lisinopril [Zestril] 10 mg PO BID 07/24/16 [History] Prasugrel [Effient] 10 mg PO DAILY #30 tab 07/26/16 [Rx] Metoprolol Tartrate [Lopressor] 50 mg PO BID 03/08/17 [History] metFORMIN HCL [metFORMIN HCL] 1,000 mg PO BID 03/08/17 [History] Liraglutide [Victoza 2-Aurelio] 1.2 mg SQ HS 08/27/17 [History] Follow up Appointment(s)/Referral(s): Kalyn Dempsey DO [Doctor of Osteopathic Medicine] - 2 Weeks Noe Castillo MD [Primary Care Provider] - 1 Week Discharge Disposition: HOME SELF-CARE
== END 2017-08-28 13:41 | disposition home or self-care (01) ==
LOC: EC 05:00 → 3OBS 06:54
PROVIDERS: ADMIT Family Medicine; ATTEND Family Medicine
DX: R07.89 Other chest pain (principal); R07.2 Precordial pain; I25.10 Atherosclerotic heart disease of native coronary artery without angina pectoris; E11.9 Type 2 diabetes mellitus without complications; K21.9 Gastro-esophageal reflux disease without esophagitis; I25.2 Old myocardial infarction; E07.9 Disorder of thyroid, unspecified; E78.5 Hyperlipidemia, unspecified; Z91.14 Patient's other noncompliance with medication regimen; I10 Essential (primary) hypertension; T82.855A Stenosis of coronary artery stent, initial encounter; I35.8 Other nonrheumatic aortic valve disorders; Z95.5 Presence of coronary angioplasty implant and graft; Z79.899 Other long term (current) drug therapy; Z79.84 Long term (current) use of oral hypoglycemic drugs; Z79.82 Long term (current) use of aspirin; E66.9 Obesity, unspecified; Z68.37 Body mass index [BMI] 37.0-37.9, adult; Y83.1 Surgical operation with implant of artificial internal device as the cause of abnormal reaction of the patient, or of later complication, without mention of misadventure at the time of the procedure
CPT/HCPCS: 99285; 36415; 94760; 93005; 93017; 93306; 93350; 80061; 80053; 82550; 82553; 83735; 84484; 85025; 85610; 85730; 83036; 71046; G0378 ×2

== ENCOUNTER → 2017-11-06 | Outpatient (CLI) | payer BC ==
--- NOTE | 2017-11-06 11:11 | CT ---
EXAMINATION TYPE: CT sinus wo con DATE OF EXAM: 11/06/2017 COMPARISON: NONE HISTORY: Patient complains of recurrent episodes of epistaxis. CT DLP: [address] of the paranasal sinuses was performed in the axial and coronal planes. Bone and soft tissue settings are submitted. The paranasal sinuses demonstrate normal aeration and development. There is some mucosal thickening of the maxillary sinuses left greater than right mild in degree on t he right and moderate on the left. There is evidence of prior medial maxillary antrectomy on the left . The osteal meatal units are patent bilaterally. The nasal septum is midline. No bony destructive changes are seen within the field of view. IMPRESSION: Chronic maxillary sinusitis.
== END | disposition home or self-care (01) ==
LOC: RADCTMAIN 10:05
PROVIDERS: ATTEND Otolaryngology
DX: J32.0 Chronic maxillary sinusitis (principal)
CPT/HCPCS: 70486

== ENCOUNTER 2018-01-27 10:46 | Observation (INO) | payer BC ==
[2018-01-27] MEDS ORDERED: ASPIRIN 81 MG PO STA (10:58)
[2018-01-27] MEDS ORDERED: NITROGLYCERIN OINT 1 INCH/GM PACKET TOPICAL STA (10:58)
--- NOTE | 2018-01-27 11:12 | ED ---
General Adult HPI - General Chief complaint: Chest Pain Stated complaint: Chest Pain Time Seen by Provider: 01/27/18 10:50 Source: patient, RN notes reviewed Mode of arrival: wheelchair Limitations: no limitations - History of Present Illness Initial comments: This is a 32-year-old male presents emergency Department complaining of chest pain. Patient states it started early in the morning he has had multiple episodes. Patient states he has a history of 7 stents he also has diabetes hypertension high cholesterol. Patient also has a family history of heart disease. Patient denies any smoking history. Patient states these episodes lasted between 10 and 15 minutes and they were associated with pain in the left arm. Patient states he also is mildly short of breath as well. Patient denied any diaphoresis. Patient denied any nausea. Patient denies any abdominal pain. Patient denies headache patient denies numbness weakness. Patient denies lightheadedness or dizziness. Patient denies any fever chills or cough. - Related Data Home Medications Medication Instructions Recorded Confirmed Lisinopril [Zestril] 10 mg PO BID 07/24/16 08/27/17 Metoprolol Tartrate [Lopressor] 50 mg PO BID 03/08/17 08/27/17 metFORMIN HCL 1,000 mg PO BID 03/08/17 08/27/17 Liraglutide [Victoza 2-Aurelio] 1.2 mg SQ HS 08/27/17 08/27/17 Previous Rx's Medication Instructions Recorded Aspirin 325 mg PO DAILY #30 tab 04/14/16 Atorvastatin [Lipitor] 80 mg PO HS #30 tab 04/14/16 Nitroglycerin Sl Tabs [Nitrostat] 0.4 mg SUBLINGUAL Q5M PRN #50 tab 04/14/16 Prasugrel [Effient] 10 mg PO DAILY #30 tab 07/26/16 Allergies Allergy/AdvReac Type Severity Reaction Status Date / Time No Known Allergies Allergy Verified 01/27/18 10:50 Review of Systems ROS Statement: Those systems with pertinent positive or pertinent negative responses have been documented in the HPI. ROS Other: All systems not noted in ROS Statement are negative. 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 UNDESCENDED TESTICLE REMOVED Past Anesthesia/Blood Transfusion Reactions: No Reported Reaction Date of Last Stent Placement:: 03/09/17 Past Psychological History: No Psychological Hx Reported Smoking Status: Never smoker Past Alcohol Use History: None Reported Past Drug Use History: None Reported - Past Family History Mother Family Medical History: Diabetes Mellitus Additional Family Medical History / Comment(s): NIDDM Father Additional Family Medical History / Comment(s): hypoglycemia. General Exam - General Exam Comments Initial Comments: GENERAL: Patient is well-developed and well-nourished. Patient is nontoxic and well- hydrated and is in mild distress. ENT: Neck is soft and supple. No significant lymphadenopathy is noted. Oropharynx is clear. Moist mucous membranes. Neck has full range of motion without eliciting any pain. EYES: The sclera were anicteric and conjunctiva were pink and moist. Extraocular movements were intact and pupils were equal round and reactive to light. Eyelids were unremarkable. PULMONARY: Unlabored respirations. Good breath sounds bilaterally. No audible rales rhonchi or wheezing was noted. CARDIOVASCULAR: There is a regular rate and rhythm without any murmurs gallops or rubs. ABDOMEN: Soft and nontender with normal bowel sounds. No palpable organomegaly was noted. There is no palpable pulsatile mass. SKIN: Skin is clear with no lesions or rashes and otherwise unremarkable. NEUROLOGIC: Patient is alert and oriented x3. Cranial nerves II through XII are grossly intact. Motor and sensory are also intact. Normal speech, volume and content. Symmetrical smile. MUSCULOSKELETAL: Normal extremities with adequate strength and full range of motion. No lower extremity swelling or edema. No calf tenderness. LYMPHATICS: No significant lymphadenopathy is noted PSYCHIATRIC: Normal psychiatric evaluation. Normal interpersonal interactions appears functionally intact in deals appropriately with others. No signs of depression. No signs of anxiety. Limitations: no limitations Course Vital Signs 01/27/18 01/27/18 10:48 12:09 Temperature 98.2 F Pulse Rate 67 78 Respiratory 20 18 Rate Blood Pressure 149/88 118/66 O2 Sat by Pulse 99 97 Oximetry Medical Decision Making - Medical Decision Making EKG shows normal sinus rhythm at 65 bpm [place] 138 QRSs 100 QT interval 396 QTC is 411. Patient's EKG shows no ST segment elevation or depression. Chest x-ray shows no acute abnormality. I placed the patient on heparin because of the patient's having unstable angina. I spoke with Dr. Louise admitted the patient I wrote admitting orders and continue the heparin Nitropaste and aspirin on the floor. - Lab Data Result diagrams: 01/27/18 11:04 01/27/18 11:04 Lab Results 01/27/18 01/27/18 01/27/18 Range/Units 11:04 11:04 11:04 WBC 6.3 (3.8-10.6) k/uL RBC 4.77 (4.30-5.90) m/uL Hgb 13.7 (13.0-17.5) gm/dL Hct 39.3 (39.0-53.0) % MCV 82.2 (80.0-100.0) fL MCH 28.8 (25.0-35.0) pg MCHC 35.0 (31.0-37.0) g/dL RDW 13.5 (11.5-15.5) % Plt Count 287 (150-450) k/uL Neutrophils % 57 % Lymphocytes % 34 % Monocytes % 5 % Eosinophils % 3 % Basophils % 1 % Neutrophils # 3.6 (1.3-7.7) k/uL Lymphocytes # 2.1 (1.0-4.8) k/uL Monocytes # 0.3 (0-1.0) k/uL Eosinophils # 0.2 (0-0.7) k/uL Basophils # 0.0 (0-0.2) k/uL PT (9.0-12.0) sec INR (<1.2) APTT (22.0-30.0) sec Sodium 138 (137-145) mmol/L Potassium 4.3 (3.5-5.1) mmol/L Chloride 102 (98-107) mmol/L Carbon Dioxide 24 (22-30) mmol/L Anion Gap 12 mmol/L BUN 15 (9-20) mg/dL Creatinine 0.84 (0.66-1.25) mg/dL Est GFR (CKD-EPI)AfAm >90 (>60 ml/min/1.73 sqM) Est GFR (CKD-EPI)NonAf >90 (>60 ml/min/1.73 sqM) Glucose 220 H (74-99) mg/dL Calcium 9.2 (8.4-10.2) mg/dL Magnesium 1.7 (1.6-2.3) mg/dL Total Bilirubin 0.3 (0.2-1.3) mg/dL AST 20 (17-59) U/L ALT 34 (21-72) U/L Alkaline Phosphatase 63 (38-126) U/L Total Creatine Kinase 91 (55-170) U/L CK-MB (CK-2) 0.7 (0.0-2.4) ng/mL CK-MB (CK-2) Rel Index 0.8 Troponin I <0.012 (0.000-0.034) ng/mL Total Protein 6.6 (6.3-8.2) g/dL Albumin 4.1 (3.5-5.0) g/dL 01/27/18 Range/Units 11:04 WBC (3.8-10.6) k/uL RBC (4.30-5.90) m/uL Hgb (13.0-17.5) gm/dL Hct (39.0-53.0) % MCV (80.0-100.0) fL MCH (25.0-35.0) pg MCHC (31.0-37.0) g/dL RDW (11.5-15.5) % Plt Count (150-450) k/uL Neutrophils % % Lymphocytes % % Monocytes % % Eosinophils % % Basophils % % Neutrophils # (1.3-7.7) k/uL Lymphocytes # (1.0-4.8) k/uL Monocytes # (0-1.0) k/uL Eosinophils # (0-0.7) k/uL Basophils # (0-0.2) k/uL PT 9.6 (9.0-12.0) sec INR 1.0 (<1.2) APTT 22.5 (22.0-30.0) sec Sodium (137-145) mmol/L Potassium (3.5-5.1) mmol/L Chloride (98-107) mmol/L Carbon Dioxide (22-30) mmol/L Anion Gap mmol/L BUN (9-20) mg/dL Creatinine (0.66-1.25) mg/dL Est GFR (CKD-EPI)AfAm (>60 ml/min/1.73 sqM) Est GFR (CKD-EPI)NonAf (>60 ml/min/1.73 sqM) Glucose (74-99) mg/dL Calcium (8.4-10.2) mg/dL Magnesium (1.6-2.3) mg/dL Total Bilirubin (0.2-1.3) mg/dL AST (17-59) U/L ALT (21-72) U/L Alkaline Phosphatase (38-126) U/L Total Creatine Kinase (55-170) U/L CK-MB (CK-2) (0.0-2.4) ng/mL CK-MB (CK-2) Rel Index Troponin I (0.000-0.034) ng/mL Total Protein (6.3-8.2) g/dL Albumin (3.5-5.0) g/dL Critical Care Time Critical Care Time: Yes Total Critical Care Time: 35 Disposition Clinical Impression: Unstable angina pectoris Disposition: ADMITTED IP TO THIS HOSP Referrals: Noe Castillo MD [Primary Care Provider] - 1-2 days Time of Disposition: 12:16
[2018-01-27 11:18] LABS: Basophils % (A) 1 %; Eosinophils # (A) 0.2 k/uL (0-0.7); Eosinophils % (A) 3 %; HCT 39.3 % (39.0-53.0); HGB 13.7 gm/dL (13.0-17.5); Lymphocytes # (A) 2.1 k/uL (1.0-4.8); Lymphocytes % (A) 34 %; MCH 28.8 pg (25.0-35.0); MCV 82.2 fL (80.0-100.0); Mean Platelet Volume 6.4; Monocytes # (A) 0.3 k/uL (0-1.0); Monocytes % (A) 5 %; Neutrophils # (A) 3.6 k/uL (1.3-7.7); Neutrophils % (A) 57 %; Platelet Count 287 k/uL (150-450); RBC 4.77 m/uL (4.30-5.90); RDW 13.5 % (11.5-15.5); WBC 6.3 k/uL (3.8-10.6)
--- NOTE | 2018-01-27 11:43 | XR ---
EXAMINATION TYPE: XR chest 2V DATE OF EXAM: 01/27/2018 COMPARISON: Prior chest 08/27/2017 HISTORY: Chest pain TECHNIQUE: Frontal and lateral views of the chest are obtained. FINDINGS: There is no focal air space opacity, pleural effusion, or pneumothorax seen. The cardiac silhouette size is within normal limits. There are overlying cardiac leads. The osseous structures are intact. IMPRESSION: No acute cardiopulmonary process.
[2018-01-27 11:45] LABS: ALT 34 U/L (21-72); AST 20 U/L (17-59); Albumin 4.1 g/dL (3.5-5.0); Alkaline Phosphatase 63 U/L (38-126); Anion Gap 12 mmol/L; Blood Urea Nitrogen 15 mg/dL (9-20); Calcium 9.2 mg/dL (8.4-10.2); Carbon Dioxide 24 mmol/L (22-30); Chloride 102 mmol/L (98-107); Glucose 220 mg/dL (74-99); Magnesium 1.7 mg/dL (1.6-2.3); Potassium 4.3 mmol/L (3.5-5.1); Sodium 138 mmol/L (137-145); Total Bilirubin 0.3 mg/dL (0.2-1.3); Total Protein 6.6 g/dL (6.3-8.2)
[2018-01-27 11:47] LABS: Creatine Kinase 91 U/L (55-170)
[2018-01-27 11:52] LABS: Partial Thromboplastin Time 22.5 sec (22.0-30.0); Prothrombin Time 9.6 sec (9.0-12.0)
[2018-01-27 12:01] LABS: Creatine Kinase MB 0.7 ng/mL (0.0-2.4); Troponin I <0.012 ng/mL (0.000-0.034)
[2018-01-27] MEDS ORDERED: HEPARIN SOD,PORK IN 0.45% NACL 25,000 UNIT in 0.45% NACL 1 500ML.BAG IV SCH (12:15)
[2018-01-27] MEDS ORDERED: HEPARIN SODIUM,PORCINE 5,000 UNIT/ML 1 ML VIAL IV ONE (12:15)
[2018-01-27] MEDS ORDERED: NITROGLYCERIN SL TABS 0.4 MG TAB SUBLINGUAL PRN ×2 (12:17→13:13)
[2018-01-27 13:44] LABS: Glucose,Whole Blood 116 mg/dL (75-99)
--- NOTE | 2018-01-27 14:31 | P.HPIM ---
History of Present Illness 32-year-old pleasant gentleman with known history of coronary artery disease with a history of 7 stents in the past came in with compensative chest pressure like sensation lasted for 10-15 minutes did not take any sublingual nitroglycerin at that time patient had minimal exertion at that time. Patient had couple surgical episodes with left-sided chest pain radiating to the left arm which is similar to the chest pain when he had myocardial infarction and stents. Patient last cardiac catheterization and stent placement was around February of last year and patient is on ieffient and an aspirin at home which he is taking and regular basis. Patient denied any diaphoresis denied any lightheadedness shortness of breath denied any cough. Patient had a normal EKG. Troponin so far negative Review of Systems REVIEW OF SYSTEMS: CONSTITUTIONAL: No fever, no malaise, no fatigue. HEENT: No recent visual problems or hearing problems. Denied any sore throat. CARDIOVASCULAR: No orthopnea, PND, no palpitations, no syncope. PULMONARY: No shortness of breath, no cough, no hemoptysis. GASTROINTESTINAL: No diarrhea, no nausea, no vomiting, no abdominal pain. Normoactive bowel sounds. NEUROLOGICAL: No headaches, no weakness, no numbness. HEMATOLOGICAL: Denies any bleeding or petechiae. GENITOURINARY: Denies any burning micturition, frequency, or urgency. MUSCULOSKELETAL/RHEUMATOLOGICAL: Denies any joint pain, swelling, or any muscle pain. ENDOCRINE: Denies any polyuria or polydipsia. The rest of the 14-point review of systems is negative. 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 UNDESCENDED TESTICLE REMOVED. 7 stents Past Anesthesia/Blood Transfusion Reactions: No Reported Reaction Date of Last Stent Placement:: 03/09/17 Past Psychological History: No Psychological Hx Reported Additional Psychological History / Comment(s): Pt resides with his spouse and 3 children. He is independent. He is a welder plastic. Smoking Status: Never smoker Past Alcohol Use History: None Reported Past Drug Use History: None Reported - Past Family History Mother Family Medical History: Diabetes Mellitus Additional Family Medical History / Comment(s): NIDDM Father Additional Family Medical History / Comment(s): hypoglycemia. Medications and Allergies Home Medications Medication Instructions Recorded Confirmed Type Aspirin 325 mg PO DAILY #30 tab 04/14/16 01/27/18 Rx Atorvastatin [Lipitor] 80 mg PO HS #30 tab 04/14/16 01/27/18 Rx Nitroglycerin Sl Tabs [Nitrostat] 0.4 mg SUBLINGUAL Q5M PRN #50 tab 04/14/1608/16 Rx Lisinopril [Zestril] 10 mg PO BID 07/24/16 01/27/18 History Prasugrel [Effient] 10 mg PO DAILY #30 tab 07/26/16 01/27/18 Rx Metoprolol Tartrate [Lopressor] 50 mg PO BID 03/08/17 01/27/18 History metFORMIN HCL 1,000 mg PO BID 03/08/17 01/27/18 History Liraglutide [Victoza 2-Aurelio] 1.2 mg SQ HS 08/27/17 01/27/18 History Allergies Allergy/AdvReac Type Severity Reaction Status Date / Time No Known Allergies Allergy Verified 01/27/18 14:08 Physical Exam Vitals: Vital Signs Temp Pulse Pulse Resp BP BP Pulse Ox 01/27/18 13:45 97.6 F 70 18 140/61 96 01/27/18 13:11 66 18 113/64 98 01/27/18 12:09 78 18 118/66 97 01/27/18 10:48 98.2 F 67 20 149/88 99 Intake and Output 01/26/18 01/27/18 01/27/18 22:59 06:59 14:59 Other: Weight 108.7 kg PHYSICAL EXAMINATION: GENERAL: The patient is alert and oriented x3, not in any acute distress. Well developed, well nourished. HEENT: Pupils are round and equally reacting to light. EOMI. No scleral icterus. No conjunctival pallor. Normocephalic, atraumatic. No pharyngeal erythema. No thyromegaly. CARDIOVASCULAR: S1 and S2 present. No murmurs, rubs, or gallops. PULMONARY: Chest is clear to auscultation, no wheezing or crackles. ABDOMEN: Soft, nontender, nondistended, normoactive bowel sounds. No palpable organomegaly. MUSCULOSKELETAL: No joint swelling or deformity. EXTREMITIES: No cyanosis, clubbing, or pedal edema. NEUROLOGICAL: Gross neurological examination did not reveal any focal deficits. SKIN: No rashes. Results CBC & Chem 7: 01/27/18 11:04 01/27/18 11:04 Labs: Abnormal Lab Results - Last 24 Hours (Table) 01/27/18 01/27/18 Range/Units 11:04 13:43 Glucose 220 H (74-99) mg/dL POC Glucose (mg/dL) 116 H (75-99) mg/dL Thrombosis Risk Factor Assmnt - Choose All That Apply Any of the Below Risk Factors Present?: Yes Each Factor Represents 1 point: Age 41-60 years, Obesity (BMI >25) Other Risk Factors: No Thrombosis Risk Factor Assessment Total Risk Factor Score: 2 Thrombosis Risk Factor Assessment Level: Low Risk Assessment and Plan Plan: -Chest pain with some typical features ", considering his previous history patient may end up needing cardiac catheterization with addition will be left to patient and cardiology. Continue with his dual antiplatelet therapy statin and a beta ernesto. -Type 2 diabetes mellitus continue with the toes and sliding scale hold off on metformin -Hypertension -History of coronary artery disease -For of above-mentioned medical problems patient will be resumed and continued on appropriate home medications.
[2018-01-27 15:31] VITALS: RESP 16
[2018-01-27] MEDS ORDERED: ACETAMINOPHEN TAB 325 MG TAB PO PRN (16:22)
[2018-01-27 17:15] LABS: Glucose,Whole Blood 122 mg/dL (75-99)
--- NOTE | 2018-01-27 17:44 | P.CRDCN ---
History of Present Illness Consult date: 01/27/18 Chief complaint: chest pain History of present illness: This is a pleasant 32-year-old gentleman with a past medical history significant for coronary artery disease and status post multivessel stenting, hypertension, diabetes, dyslipidemia, presented to the emergency room complaining of chest discomfort. The patient does follow with a signaling design engineer out of the town. He presented to the hospital in February 2017 with a chest discomfort and underwent a heart catheterization and he was found to have severe in-stent restenosis of the RCA which was stented at that point. The patient was admitted to the hospital again in July 2016 with a chest discomfort and he underwent an echocardiogram which showed normal LV function and stress echocardiogram which came in to be also unremarkable. He was in his usual state of health until earlier today when he had a sort of argument with his son and he was stressed out and developed chest discomfort in the mid of the chest, as a pressure across the chest, without any radiation and without any associated symptoms. The patient has been pain-free since he was admitted to the hospital. The EKG shows sinus rhythm without any ischemic changes. We only have one set of enzymes came in to be unremarkable. 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 UNDESCENDED TESTICLE REMOVED. 7 stents Past Anesthesia/Blood Transfusion Reactions: No Reported Reaction Date of Last Stent Placement:: 03/09/17 Past Psychological History: No Psychological Hx Reported Additional Psychological History / Comment(s): Pt resides with his spouse and 3 children. He is independent. He is a welder fitter apprentice. Smoking Status: Never smoker Past Alcohol Use History: None Reported Past Drug Use History: None Reported - Past Family History Mother Family Medical History: Diabetes Mellitus Additional Family Medical History / Comment(s): NIDDM Father Additional Family Medical History / Comment(s): hypoglycemia. Medications and Allergies Home Medications Medication Instructions Recorded Confirmed Type Aspirin 325 mg PO DAILY #30 tab 04/14/16 01/27/18 Rx Atorvastatin [Lipitor] 80 mg PO HS #30 tab 04/14/16 01/27/18 Rx Nitroglycerin Sl Tabs [Nitrostat] 0.4 mg SUBLINGUAL Q5M PRN #50 tab 04/14/1608/16 Rx Lisinopril [Zestril] 10 mg PO BID 07/24/16 01/27/18 History Prasugrel [Effient] 10 mg PO DAILY #30 tab 07/26/16 01/27/18 Rx Metoprolol Tartrate [Lopressor] 50 mg PO BID 03/08/17 01/27/18 History metFORMIN HCL 1,000 mg PO BID 03/08/17 01/27/18 History Liraglutide [Victoza 2-Aurelio] 1.2 mg SQ HS 08/27/17 01/27/18 History Allergies Allergy/AdvReac Type Severity Reaction Status Date / Time No Known Allergies Allergy Verified 01/27/18 14:08 Physical Exam Vitals: Vital Signs Temp Pulse Pulse Resp BP BP Pulse Ox 01/27/18 16:00 68 16 01/27/18 15:31 97.7 F 68 16 113/80 96 01/27/18 13:45 97.6 F 70 18 140/61 96 01/27/18 13:11 66 18 113/64 98 01/27/18 12:09 78 18 118/66 97 01/27/18 10:48 98.2 F 67 20 149/88 99 Intake and Output 01/27/18 01/27/18 01/27/18 06:59 14:59 22:59 Other: Voiding Method Toilet Weight 108.7 kg - Constitutional General appearance: no acute distress - Respiratory Respiratory: bilateral: CTA - Cardiovascular Rhythm: regular Heart sounds: normal: S1, S2 Abnormal Heart Sounds: systolic murmur Results 01/27/18 11:04 01/27/18 11:04 Cardiac Enzymes 01/27/18 01/27/18 Range/Units 11:04 11:04 AST 20 (17-59) U/L CK-MB (CK-2) 0.7 (0.0-2.4) ng/mL Troponin I <0.012 (0.000-0.034) ng/mL Coagulation 01/27/18 Range/Units 11:04 PT 9.6 (9.0-12.0) sec APTT 22.5 (22.0-30.0) sec CBC 01/27/18 Range/Units 11:04 WBC 6.3 (3.8-10.6) k/uL RBC 4.77 (4.30-5.90) m/uL Hgb 13.7 (13.0-17.5) gm/dL Hct 39.3 (39.0-53.0) % Plt Count 287 (150-450) k/uL Comprehensive Metabolic Panel 01/27/18 Range/Units 11:04 Sodium 138 (137-145) mmol/L Potassium 4.3 (3.5-5.1) mmol/L Chloride 102 (98-107) mmol/L Carbon Dioxide 24 (22-30) mmol/L BUN 15 (9-20) mg/dL Creatinine 0.84 (0.66-1.25) mg/dL Glucose 220 H (74-99) mg/dL Calcium 9.2 (8.4-10.2) mg/dL AST 20 (17-59) U/L ALT 34 (21-72) U/L Alkaline Phosphatase 63 (38-126) U/L Total Protein 6.6 (6.3-8.2) g/dL Albumin 4.1 (3.5-5.0) g/dL Current Medications Generic Name Dose Route Start Last Admin Trade Name Freq PRN Reason Stop Dose Admin Acetaminophen 650 mg 01/27/18 16:22 Tylenol Tab PO Q6HR PRN Fever and/ or MILD Pain Aspirin 325 mg 01/28/18 09:00 Aspirin PO DAILY [facility] Atorvastatin Calcium 80 mg 01/27/18 21:00 Lipitor PO HS [facility] Heparin Sodium/Sodium Chloride 500 mls @ 20 mls/hr 01/27/18 12:15 01/27/18 13 :09 25,000 unit/ Sodium Chloride IV 9.186 units/kg/hr .Q24H [facility] 20 mls/hr Administration Protocol 9.186 UNITS/KG/HR Lisinopril 10 mg 01/27/18 21:00 Zestril PO BID [facility] Metoprolol Tartrate 50 mg 01/27/18 21:00 Lopressor PO BID [facility] Nitroglycerin 1 inch 01/27/18 18:00 Nitro-Bid Oint TOPICAL Q6HR [facility] Nitroglycerin 0.4 mg 01/27/18 13:13 Nitrostat SUBLINGUAL Q5M PRN Chest Pain Patient's Own Med ( 1.2 mg 01/27/18 21:00 Liraglutide [Victoza SQ 2-Aurelio] 1.2 Mg) HS [facility] Prasugrel 10 mg 01/28/18 09:00 Effient PO DAILY [facility] Intake and Output 01/27/18 01/27/18 01/27/18 06:59 14:59 22:59 Other: Voiding Method Toilet Weight 108.7 kg Patient Weight 01/28/18 06:59 Weight 108.7 kg 01/27/18 11:04 01/27/18 11:04 Assessment and Plan Assessment: assessment #1 chest discomfort and currently the patient is pain-free #2 known CAD and status post multivessel angioplasty #3 multiple risk factors for CAD including diabetes hypertension and dyslipidemia Plan #1 acute coronary syndrome to be ruled out. We will follow-up with the serial cardiac enzymes #2 continue the current medical treatment #3 further recommendation to follow. Thank you for allowing us participate in his care and we'll continue following up with him
[2018-01-27 18:37] LABS: Creatine Kinase 72 U/L (55-170)
[2018-01-27] MEDS: HEPARIN SODIUM,PORCINE 5,000 UNIT/ML 1 ML VIAL IV PRN (18:39)
[2018-01-27 18:50] LABS: Creatine Kinase MB 0.6 ng/mL (0.0-2.4); Troponin I <0.012 ng/mL (0.000-0.034)
[2018-01-27 20:09] LABS: Glucose,Whole Blood 101 mg/dL (75-99)
[2018-01-27] MEDS: METOPROLOL TARTRATE 50 MG TAB PO SCH (20:11)
[2018-01-27] MEDS: LISINOPRIL 10 MG TAB PO SCH (20:11)
[2018-01-27] MEDS: NITROGLYCERIN OINT 1 INCH/GM PACKET TOPICAL SCH ×2 (20:17→23:08)
[2018-01-27] MEDS ORDERED: ATORVASTATIN 80 MG TAB PO SCH (21:00)
[2018-01-27] MEDS ORDERED: LIRAGLUTIDE 1.2 MG SQ SCH (21:00)
[2018-01-28] MEDS: HEPARIN SODIUM,PORCINE 5,000 UNIT/ML 1 ML VIAL IV PRN (00:32)
[2018-01-28 00:35] LABS: Cholesterol 157 mg/dL (<200); HDL Cholesterol 29 mg/dL (40-60); LDL Cholesterol,Calculated 75 mg/dL (0-99); Triglycerides 266 mg/dL (<150)
[2018-01-28 00:35] LABS: Creatine Kinase 60 U/L (55-170)
[2018-01-28 00:48] LABS: Creatine Kinase MB 0.5 ng/mL (0.0-2.4); Troponin I <0.012 ng/mL (0.000-0.034)
[2018-01-28] MEDS: NITROGLYCERIN OINT 1 INCH/GM PACKET TOPICAL SCH (05:54)
[2018-01-28 06:23] LABS: Glucose,Whole Blood 123 mg/dL (75-99)
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
--- NOTE | 2018-01-28 08:02 | PN ---
PROGRESS NOTE Mr. Morse is a 32-year-old male with a known history of coronary artery disease who presented with symptoms of chest discomfort after an argument with son. He has a prior stenting done in the past. He is feeling well this morning. He is denying any chest pain. His breathing has been stable. No dizziness or palpitation. No nausea. He continues to be at this time on aspirin once a day, Lipitor 80 mg daily, IV heparin, Zestril 10 mg twice a day, metoprolol tartrate 50 mg twice a day and nitro paste. PHYSICAL EXAMINATION: Blood pressure 130/70 with the heart rate in the 80s. LUNGS: Clear. HEART: Regular rate and rhythm. S1, S2. No S3. No rub. ABDOMEN: Soft, nontender. EXTREMITIES: No edema. LAB DATA: Lab data revealed a troponin less than 0.012. IMPRESSION: Chest discomfort of unclear etiology. Patient has underwent a stress test in July that revealed no evidence of inducible ischemia. His level of activity will be increased. I will stop the IV heparin and IV nitrate. He should be able to be discharged home today and followed as an outpatient with his primary ultrasonic seaming machine operator. [email or web address] / NILSA: [id number] /
[2018-01-28] MEDS ORDERED: ASPIRIN 325 MG TAB PO SCH (09:00)
[2018-01-28] MEDS ORDERED: ISOSORBIDE MONONITRATE ER 30 MG TAB.ER.24H PO SCH (09:00)
[2018-01-28] MEDS ORDERED: PRASUGREL 10 MG TAB PO SCH (09:00)
[2018-01-28] MEDS: LISINOPRIL 10 MG TAB PO SCH (09:23)
[2018-01-28] MEDS: METOPROLOL TARTRATE 50 MG TAB PO SCH (09:23)
[2018-01-28 11:58] VITALS: BP 132/75; PULSE 58; TEMP 97.7
[2018-01-28 16:02] LABS: Hemoglobin A1C 6.4 % (4.0-6.0)
== END 2018-01-28 12:35 | disposition home or self-care (01) ==
LOC: EC 10:46 → 3OBS 12:17
PROVIDERS: ADMIT Family Medicine; ATTEND Family Medicine
DX: R07.89 Other chest pain (principal); I10 Essential (primary) hypertension; E11.9 Type 2 diabetes mellitus without complications; K21.9 Gastro-esophageal reflux disease without esophagitis; I25.119 Atherosclerotic heart disease of native coronary artery with unspecified angina pectoris; E78.5 Hyperlipidemia, unspecified; E07.9 Disorder of thyroid, unspecified; Z95.5 Presence of coronary angioplasty implant and graft; E66.9 Obesity, unspecified; Z68.34 Body mass index [BMI] 34.0-34.9, adult; Z79.84 Long term (current) use of oral hypoglycemic drugs; Z79.82 Long term (current) use of aspirin; Z79.899 Other long term (current) drug therapy; Z79.02 Long term (current) use of antithrombotics/antiplatelets; I25.2 Old myocardial infarction; Z87.09 Personal history of other diseases of the respiratory system; Z90.79 Acquired absence of other genital organ(s); Z82.49 Family history of ischemic heart disease and other diseases of the circulatory system; Z83.3 Family history of diabetes mellitus; Z83.49 Family history of other endocrine, nutritional and metabolic diseases
CPT/HCPCS: 99291 ×2; 96365 ×2; 96376 ×4; 96366 ×2; 36415; 93005; 80061; 80053; 82550; 82553; 83735; 84484; 85025; 85610; 85730 ×2; 83036; 71046; G0378 ×2; J1644 ×3

== ENCOUNTER 2018-11-01 10:43 | Observation (INO) | payer BC ==
[2018-11-01 11:26] LABS: Basophils # (A) 0.1 k/uL (0-0.2); Basophils % (A) 1 %; Eosinophils # (A) 0.2 k/uL (0-0.7); Eosinophils % (A) 3 %; HCT 46.5 % (39.0-53.0); HGB 16.1 gm/dL (13.0-17.5); Lymphocytes # (A) 2.9 k/uL (1.0-4.8); Lymphocytes % (A) 32 %; MCH 27.7 pg (25.0-35.0); MCHC 34.6 g/dL (31.0-37.0); MCV 80.2 fL (80.0-100.0); Monocytes # (A) 0.8 k/uL (0-1.0); Monocytes % (A) 9 %; Neutrophils # (A) 4.7 k/uL (1.3-7.7); Neutrophils % (A) 54 %; Platelet Count 327 k/uL (150-450); RDW 14.2 % (11.5-15.5); WBC 8.8 k/uL (3.8-10.6)
[2018-11-01 11:30] LABS: Glucose,Whole Blood 123 mg/dL (75-99)
[2018-11-01 11:36] LABS: ALT 72 U/L (21-72); AST 47 U/L (17-59); African American GFR (CKD) >90 (>60 ml/min/1.73 sqM); Albumin 5.3 g/dL (3.5-5.0); Alkaline Phosphatase 86 U/L (38-126); Anion Gap 17 mmol/L; Blood Urea Nitrogen 16 mg/dL (9-20); Calcium 10.5 mg/dL (8.4-10.2); Carbon Dioxide 23 mmol/L (22-30); Chloride 100 mmol/L (98-107); Glucose 134 mg/dL (74-99); Lipase 152 U/L (23-300); Magnesium 1.9 mg/dL (1.6-2.3); Sodium 140 mmol/L (137-145); Total Protein 8.5 g/dL (6.3-8.2)
--- NOTE | 2018-11-01 11:40 | ED ---
General Adult HPI - General Chief complaint: Chest Pain Stated complaint: High BP, Confusion Time Seen by Provider: 11/01/18 10:52 Source: patient, RN notes reviewed, old records reviewed Mode of arrival: ambulatory Limitations: no limitations - History of Present Illness Initial comments: 33 -year-old male presenting for evaluation of dyspnea, diaphoresis, and generalized weakness. Patient has history of CAD, status post stenting, he states he's had 7 stents over the past 7 years. Initial heart attack was in 2011. He has history of hypertension, hypercholesterolemia, and uncontrolled diabetes. He states her sugars have been elevated over the past one week. Denies central chest pain. However he states that his symptoms are similar to previous heart attacks. Denies lower extremity swelling. Denies abdominal pain, no vomiting, he has had some mild nausea. - Related Data Home Medications Medication Instructions Recorded Confirmed metFORMIN HCL 1,000 mg PO BID 03/08/17 11/01/18 Allopurinol [Zyloprim] 300 mg PO DAILY PRN 11/01/18 11/01/18 Lisinopril 40 mg PO BID 11/01/18 11/01/18 Metoprolol Tartrate [Lopressor] 100 mg PO BID 11/01/18 11/01/18 Previous Rx's Medication Instructions Recorded Atorvastatin [Lipitor] 80 mg PO HS #30 tab 04/14/16 Prasugrel [Effient] 10 mg PO DAILY #30 tab 07/26/16 Aspirin 325 mg PO DAILY tab 01/28/18 Nitroglycerin Sl Tabs [Nitrostat] 0.4 mg SUBLINGUAL Q5M PRN #50 tab 01/28/18 Allergies Allergy/AdvReac Type Severity Reaction Status Date / Time No Known Allergies Allergy Verified 11/01/18 11:03 Review of Systems ROS Statement: Those systems with pertinent positive or pertinent negative responses have been documented in the HPI. ROS Other: All systems not noted in ROS Statement are negative. 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 UNDESCENDED TESTICLE REMOVED. 7 stents Past Anesthesia/Blood Transfusion Reactions: No Reported Reaction Date of Last Stent Placement:: 03/09/17 Past Psychological History: No Psychological Hx Reported Smoking Status: Never smoker Past Alcohol Use History: None Reported Past Drug Use History: Marijuana - Past Family History Mother Family Medical History: Diabetes Mellitus Additional Family Medical History / Comment(s): NIDDM Father Additional Family Medical History / Comment(s): hypoglycemia. General Exam Limitations: no limitations General appearance: alert, in no apparent distress Head exam: Present: atraumatic, normocephalic Eye exam: Present: normal appearance, PERRL ENT exam: Present: normal exam Neck exam: Present: normal inspection. Absent: tenderness, meningismus Respiratory exam: Present: normal lung sounds bilaterally. Absent: respiratory distress, wheezes Cardiovascular Exam: Present: regular rate, normal rhythm GI/Abdominal exam: Present: soft. Absent: distended, tenderness, guarding Extremities exam: Present: normal inspection. Absent: normal capillary refill, pedal edema Neurological exam: Present: alert, oriented X3, CN II-XII intact. Absent: motor sensory deficit Psychiatric exam: Present: normal affect, normal mood Skin exam: Present: warm, dry, intact. Absent: cyanosis, diaphoretic Course Vital Signs 11/01/18 11/01/18 11/01/18 10:47 11:19 12:26 Temperature 97.7 F Pulse Rate 84 87 84 Respiratory 20 16 16 Rate Blood Pressure 158/110 147/98 128/85 O2 Sat by Pulse 99 96 95 Oximetry EKG Findings - EKG Comments: EKG Findings:: Normal sinus rhythm, rate of 87, CO interval 144, QRS duration 94, QTC 428, no ST segment elevation, or depression Medical Decision Making - Medical Decision Making 33-year-old male presenting with generalized weakness, diaphoresis, and irritability. States the symptoms are identical to previous episodes patient h as had with ND and coronary artery disease. Patient is very high risk, previous stenting, diabetic, hypercholesterolemia and uncontrolled hypertension. Denies specific chest pain. EKG is nonischemic. Chest x-ray negative for any acute cardio pulmonary disease. CBC unremarkable, mild hyperkalemia although there is slight hemolysis, initial troponin negative. Patient very high risk, will be kept in observation for serial cardiac enzymes. Case discussed with Dr. Castillo, we will admit. - Lab Data Result diagrams: 11/01/18 11:14 11/01/18 11:14 Lab Results 11/01/18 11/01/18 11/01/18 Range/Units 11:14 11:14 11:14 WBC 8.8 (3.8-10.6) k/uL RBC 5.80 (4.30-5.90) m/uL Hgb 16.1 (13.0-17.5) gm/dL Hct 46.5 (39.0-53.0) % MCV 80.2 (80.0-100.0) fL MCH 27.7 (25.0-35.0) pg MCHC 34.6 (31.0-37.0) g/dL RDW 14.2 (11.5-15.5) % Plt Count 327 (150-450) k/uL Neutrophils % 54 % Lymphocytes % 32 % Monocytes % 9 % Eosinophils % 3 % Basophils % 1 % Neutrophils # 4.7 (1.3-7.7) k/uL Lymphocytes # 2.9 (1.0-4.8) k/uL Monocytes # 0.8 (0-1.0) k/uL Eosinophils # 0.2 (0-0.7) k/uL Basophils # 0.1 (0-0.2) k/uL Sodium 140 (137-145) mmol/L Potassium 5.6 H (3.5-5.1) mmol/L Chloride 100 (98-107) mmol/L Carbon Dioxide 23 (22-30) mmol/L Anion Gap 17 mmol/L BUN 16 (9-20) mg/dL Creatinine 0.73 (0.66-1.25) mg/dL Est GFR (CKD-EPI)AfAm >90 (>60 ml/min/1.73 sqM) Est GFR (CKD-EPI)NonAf >90 (>60 ml/min/1.73 sqM) Glucose 134 H (74-99) mg/dL POC Glucose (mg/dL) (75-99) mg/dL POC Glu Feeder Operator ID Calcium 10.5 H (8.4-10.2) mg/dL Magnesium 1.9 (1.6-2.3) mg/dL Total Bilirubin 1.0 (0.2-1.3) mg/dL AST 47 (17-59) U/L ALT 72 (21-72) U/L Alkaline Phosphatase 86 (38-126) U/L Troponin I (0.000-0.034) ng/mL NT-Pro-B Natriuret Pep 25 pg/mL Total Protein 8.5 H (6.3-8.2) g/dL Albumin 5.3 H (3.5-5.0) g/dL Lipase 152 (23-300) U/L 11/01/18 11/01/18 Range/Units 11:14 11:28 WBC (3.8-10.6) k/uL RBC (4.30-5.90) m/uL Hgb (13.0-17.5) gm/dL Hct (39.0-53.0) % MCV (80.0-100.0) fL MCH (25.0-35.0) pg MCHC (31.0-37.0) g/dL RDW (11.5-15.5) % Plt Count (150-450) k/uL Neutrophils % % Lymphocytes % % Monocytes % % Eosinophils % % Basophils % % Neutrophils # (1.3-7.7) k/uL Lymphocytes # (1.0-4.8) k/uL Monocytes # (0-1.0) k/uL Eosinophils # (0-0.7) k/uL Basophils # (0-0.2) k/uL Sodium (137-145) mmol/L Potassium (3.5-5.1) mmol/L Chloride (98-107) mmol/L Carbon Dioxide (22-30) mmol/L Anion Gap mmol/L BUN (9-20) mg/dL Creatinine (0.66-1.25) mg/dL Est GFR (CKD-EPI)AfAm (>60 ml/min/1.73 sqM) Est GFR (CKD-EPI)NonAf (>60 ml/min/1.73 sqM) Glucose (74-99) mg/dL POC Glucose (mg/dL) 123 H (75-99) mg/dL POC Glu Feeder Operator ID Calderon, Brittney Calcium (8.4-10.2) mg/dL Magnesium (1.6-2.3) mg/dL Total Bilirubin (0.2-1.3) mg/dL AST (17-59) U/L ALT (21-72) U/L Alkaline Phosphatase (38-126) U/L Troponin I <0.012 (0.000-0.034) ng/mL NT-Pro-B Natriuret Pep pg/mL Total Protein (6.3-8.2) g/dL Albumin (3.5-5.0) g/dL Lipase (23-300) U/L Disposition Clinical Impression: Diabetes, Anginal equivalent Disposition: ADMITTED IP TO THIS HOSP Condition: Stable Is patient prescribed a controlled substance at d/c from ED?: No Referrals: Noe Castillo MD [Primary Care Provider] - 1-2 days Decision to Admit Reason: Admit from EC Decision Date: 11/01/18 Decision Time: 12:40
[2018-11-01 11:47] LABS: Potassium 5.6 mmol/L (3.5-5.1)
--- NOTE | 2018-11-01 12:21 | XR ---
EXAMINATION TYPE: XR chest 2V DATE OF EXAM: 11/01/2018 COMPARISON: Prior chest x-ray 01/27/2018 HISTORY: Chest pain and hypertension TECHNIQUE: Frontal and lateral views of the chest are obtained. FINDINGS: There are overlying cardiac leads. Patient is rotated. Right hemidiaphragm remains elevated . There is no focal air space opacity, pleural effusion, or pneumothorax seen. The cardiac silhouett e size is within normal limits. The osseous structures are intact. IMPRESSION: No acute cardiopulmonary process.
[2018-11-01] MEDS ORDERED: SODIUM CHLORIDE 0.9% 500 ML 500 ML IV ONE (12:29)
[2018-11-01] MEDS ORDERED: ASPIRIN 325 MG TAB PO STA (12:37)
[2018-11-01 12:38] LABS: INR 0.9 (<1.2)
[2018-11-01 12:39] LABS: Partial Thromboplastin Time 21.1 sec (22.0-30.0); Prothrombin Time 9.8 sec (9.0-12.0)
[2018-11-01] MEDS ORDERED: ACETAMINOPHEN TAB 325 MG TAB PO PRN (12:40)
[2018-11-01] MEDS ORDERED: MORPHINE SULFATE 4 MG/ML SYRINGE IV PRN (12:40)
[2018-11-01] MEDS ORDERED: ONDANSETRON 4 MG/2 ML VIAL IVP PRN (12:40)
[2018-11-01] MEDS ORDERED: NALOXONE 0.4 MG/ML 1 ML VIAL IV PRN (12:40)
[2018-11-01] MEDS ORDERED: NITROGLYCERIN SL TABS 0.4 MG TAB SUBLINGUAL PRN (12:42)
[2018-11-01 12:46] LABS: Appearance,Urine Clear (Clear); Bilirubin,Urine Negative (Negative); Blood,Urine Negative (Negative); Color,Urine Light Yellow; Glucose,Urine (UA) 4+ (Negative); Ketones,Urine Trace (Negative); Leukocyte Esterase,Urine Negative (Negative); Nitrite,Urine Negative (Negative); PH, Urine 5.5 (5.0-8.0); Protein,Urine Trace (Negative); Urobilinogen,Urine <2.0 mg/dL (<2.0)
[2018-11-01] MEDS: SODIUM CHLORIDE 0.9% 1,000 ML IV SCH (12:47)
[2018-11-01 12:56] LABS: Amphetamine Screen,Urine Not Detected (NotDetected); Barbiturate Screen,Urine Not Detected (NotDetected); Benzodiazepines Screen,Urine Not Detected (NotDetected); Cocaine Screen,Urine Not Detected (NotDetected); Methadone Screen, Urine Not Detected (NotDetected); Opiate Screen,Urine Not Detected (NotDetected); Oxycodone Screen, Urine Not Detected (NotDetected); Phencyclidine Screen,Urine Not Detected (NotDetected); Tricyclic Antidepressant,Urine Not Detected (NotDetected); Urn Cannabinoid Scrn Not Detected (NotDetected)
[2018-11-01 16:31] LABS: Glucose,Whole Blood 123 mg/dL (75-99)
[2018-11-01] MEDS: INSULIN ASPART (NovoLOG) 100 UNIT/ML VIAL SQ SCH ×2 (17:00→20:37)
[2018-11-01] MEDS: METOPROLOL TARTRATE 50 MG TAB PO SCH (19:33)
[2018-11-01] MEDS: LISINOPRIL 20 MG TAB PO SCH (19:33)
[2018-11-01] MEDS: ATORVASTATIN 80 MG TAB PO SCH (19:33)
[2018-11-01 20:03] LABS: Glucose,Whole Blood 164 mg/dL (75-99)
[2018-11-01] MEDS ORDERED: metFORMIN 500 MG TAB PO SCH (21:00)
[2018-11-02] MEDS: SODIUM CHLORIDE 0.9% 1,000 ML IV SCH (04:04)
[2018-11-02 06:42] LABS: Glucose,Whole Blood 130 mg/dL (75-99)
[2018-11-02] MEDS: INSULIN ASPART (NovoLOG) 100 UNIT/ML VIAL SQ SCH ×4 (07:23→21:55)
[2018-11-02] MEDS: ASPIRIN 325 MG TAB PO SCH (08:48)
[2018-11-02] MEDS: PRASUGREL 10 MG TAB PO SCH (08:48)
[2018-11-02] MEDS: METOPROLOL TARTRATE 50 MG TAB PO SCH ×2 (08:48→19:57)
[2018-11-02] MEDS: LISINOPRIL 20 MG TAB PO SCH ×2 (08:48→19:57)
--- NOTE | 2018-11-02 11:03 | P.CRDCN ---
History of Present Illness History of present illness: This is Dr. Jung dictating a consult on this patient The patient was interviewed and examined by me IMPRESSION / ASSESSMENT: Patient presenting with shortness of breath and atypical chest discomfort but there are EKG changes on serial ECGs with flattening of the T waves in the lateral precordial leads Normal cardiac enzymes no evidence for myocardial injury Uncontrolled hypertension upon admission but here the blood pressure is well controlled number Type 2 diabetes uncontrolled History of coronary artery disease status post multiple stents at [facility] PLAN: Repeat labs repeat potassium, hemoglobin A1c check and lipid panel check Continue current medications Watch blood pressure Diabetes management per internal medicine team Coronary angiography tomorrow HPI Patient presented with shortness of breath diaphoresis and generalized weakness. He felt irritable He said his symptoms resembled when he had a stent for significant coronary artery disease His blood pressure has been uncontrolled for the last few days, diabetes uncontrolled He sees Dr. Kalyn Dempsey at [facility] He had multiple coronary stents placed ROS: No fever chills or rigors, no cough, phlegm or expectoration, no nausea, vomiting or diarrhea, no hematuria, dysuria, no musculoskeletal complaints, no strokes or seizures, no skin lesions. EXAMINATION: Blood pressure 130/89 mmHg 120/79 mmHg pulse rate in the 70s Heart sounds are normal no murmurs Breath sounds are clear no rhonchi crackles Abdomen is soft nontender Extremities warm no edema Patient is resting comfortably in bed flat and does not appear to be in any distress REVIEW OF LABS, ECG & MEDICAL DATA Yesterday his potassium is 5.6 BUN 16 creatinine 0.73 elevated glucose, magnesium 1.9 Serial ECG showed changes in the lateral precordial leads Past Medical History Past Medical History: Coronary Artery Disease (CAD), Chest Pain / Angina, Diabetes Mellitus, GERD/Reflux, Hyperlipidemia, Hypertension, Myocardial Infarction ([place]) Additional Past Medical History / Comment(s): NIDDM type II, fungal mass R lung with surgical removal Last Myocardial Infarction Date:: 12/23/11 History of Any Multi-Drug Resistant Organisms: None Reported Past Surgical History: Heart Catheterization, Heart Catheterization With Stent Additional Past Surgical History / Comment(s): WEDGE resection RIGHT LUNG 2011,. UNDESCENDED TESTICLE REMOVED. 7 stents Past Anesthesia/Blood Transfusion Reactions: No Reported Reaction Date of Last Stent Placement:: december 2017 Past Psychological History: No Psychological Hx Reported Additional Psychological History / Comment(s): Pt resides with his spouse and 3 children. He is independent. He is a welder manufacture. Smoking Status: Never smoker Past Alcohol Use History: None Reported Past Drug Use History: Marijuana - Past Family History Mother Family Medical History: Diabetes Mellitus Additional Family Medical History / Comment(s): NIDDM Father Additional Family Medical History / Comment(s): hypoglycemia. Medications and Allergies Home Medications Medication Instructions Recorded Confirmed Type RX: Atorvastatin [Lipitor] 80 mg PO HS #30 tab 04/14/16 11/01/18 Rx RX: Prasugrel [Effient] 10 mg PO DAILY #30 tab 07/26/16 11/01/18 Rx RX: metFORMIN HCL 1,000 mg PO BID 03/08/17 11/01/18 History RX: Aspirin 325 mg PO DAILY tab 01/28/18 11/01/18 Rx RX: Nitroglycerin Sl Tabs 0.4 mg SUBLINGUAL Q5M PRN #50 tab 01/28/18 11/01/18 Rx [Nitrostat] Allopurinol [Zyloprim] 300 mg PO DAILY PRN 11/01/18 11/01/18 History Metoprolol Tartrate [Lopressor] 100 mg PO BID 11/01/18 11/01/18 History RX: Lisinopril 40 mg PO BID 11/01/18 11/01/18 History Allergies Allergy/AdvReac Type Severity Reaction Status Date / Time No Known Allergies Allergy Verified 11/01/18 11:03 Physical Exam Vitals: Vital Signs Temp Pulse Pulse Pulse Resp BP BP 11/02/18 08:00 97.8 F 76 16 120/79 11/02/18 03:55 98.3 F 82 16 138/89 11/02/18 03:26 83 17 11/02/18 00:11 98.2 F 90 16 160/70 11/01/18 23:21 81 17 11/01/18 19:58 85 17 11/01/18 19:10 98.3 F 79 16 163/83 11/01/18 16:00 83 18 11/01/18 15:40 11/01/18 14:55 98.0 F 83 18 137/77 11/01/18 14:11 83 16 136/78 11/01/18 12:26 84 16 128/85 11/01/18 11:19 87 16 147/98 Pulse Ox 11/02/18 08:00 98 11/02/18 03:55 97 11/02/18 03:26 11/02/18 00:11 97 11/01/18 23:21 11/01/18 19:58 11/01/18 19:10 96 11/01/18 16:00 11/01/18 15:40 99 11/01/18 14:55 97 11/01/18 14:11 95 11/01/18 12:26 95 11/01/18 11:19 96 Intake and Output 11/01/18 11/02/18 11/02/18 22:59 06:59 14:59 Intake Total 240 Balance 240 Intake: Oral 240 Other: Voiding Method Toilet Toilet Toilet # Voids 1 1 Results 11/01/18 11:14 11/01/18 11:14 Cardiac Enzymes 11/01/18 11/01/18 11/01/18 Range/Units 11:14 11:14 17:39 AST 47 (17-59) U/L Troponin I <0.012 <0.012 (0.000-0.034) ng/mL 11/01/18 Range/Units 23:57 AST (17-59) U/L Troponin I <0.012 (0.000-0.034) ng/mL Coagulation 11/01/18 Range/Units 11:14 PT 9.8 (9.0-12.0) sec APTT 21.1 L (22.0-30.0) sec CBC 11/01/18 Range/Units 11:14 WBC 8.8 (3.8-10.6) k/uL RBC 5.80 (4.30-5.90) m/uL Hgb 16.1 (13.0-17.5) gm/dL Hct 46.5 (39.0-53.0) % Plt Count 327 (150-450) k/uL Comprehensive Metabolic Panel 11/01/18 Range/Units 11:14 Sodium 140 (137-145) mmol/L Potassium 5.6 H (3.5-5.1) mmol/L Chloride 100 (98-107) mmol/L Carbon Dioxide 23 (22-30) mmol/L BUN 16 (9-20) mg/dL Creatinine 0.73 (0.66-1.25) mg/dL Glucose 134 H (74-99) mg/dL Calcium 10.5 H (8.4-10.2) mg/dL AST 47 (17-59) U/L ALT 72 (21-72) U/L Alkaline Phosphatase 86 (38-126) U/L Total Protein 8.5 H (6.3-8.2) g/dL Albumin 5.3 H (3.5-5.0) g/dL Current Medications Generic Name Dose Route Start Last Admin Trade Name Freq PRN Reason Stop Dose Admin Acetaminophen 650 mg 11/01/18 12:40 Tylenol Tab PO Q6HR PRN Mild Pain or Fever > 100.5 Aspirin 325 mg 11/02/18 09:00 11/02/18 08:48 Aspirin PO 325 mg DAILY [facility] Administration Atorvastatin Calcium 80 mg 11/01/18 21:00 11/01/18 19:33 Lipitor PO 80 mg HS [facility] Administration Insulin Aspart 0 unit 11/01/18 17:30 11/02/18 07:23 Novolog SQ Not Given ACHS [facility] Protocol Lisinopril 40 mg 11/01/18 21:00 11/02/18 08:48 Zestril PO 40 mg BID [facility] Administration Metoprolol Tartrate 100 mg 11/01/18 21:00 11/02/18 08:48 Lopressor PO 100 mg BID [facility] Administration Morphine Sulfate 4 mg 11/01/18 12:40 Morphine Sulfate (Inj) IV Q4HR PRN Severe Pain Naloxone HCl 0.2 mg 11/01/18 12:40 Narcan IV Q2M PRN Opioid Reversal Nitroglycerin 0.4 mg 11/01/18 12:42 Nitrostat SUBLINGUAL Q5M PRN Chest Pain Ondansetron HCl 4 mg 11/01/18 12:40 Zofran IVP Q8HR PRN Nausea And Vomiting Prasugrel 10 mg 11/02/18 09:00 11/02/18 08:48 Effient PO 10 mg DAILY [facility] Administration Intake and Output 11/01/18 11/02/18 11/02/18 22:59 06:59 14:59 Intake Total 240 Balance 240 Intake: Oral 240 Other: Voiding Method Toilet Toilet Toilet # Voids 1 1 11/01/18 11:14 11/01/18 11:14
[2018-11-02 11:36] LABS: Glucose,Whole Blood 122 mg/dL (75-99)
--- NOTE | 2018-11-02 14:06 | ECHOF ---
Referral Reason:chest pain MEASUREMENTS -------- HEIGHT: 177.8 cm WEIGHT: 122.5 kg BP: 120/79 RVIDd: 3.6 cm (< 3.3) IVSd: 1.2 cm (0.6 - 1.1) LVIDd: 5.0 cm (3.9 - 5.3) LVPWd: 1.2 cm (0.6 - 1.1) IVSs: 1.8 cm LVIDs: 3.7 cm LVPWs: 2.1 cm LA Diam: 3.8 cm (2.7 - 3.8) LAESV Index (A-L): 23.77 ml/m Ao Diam: 3.2 cm (2.0 - 3.7) AV Cusp: 2.5 cm (1.5 - 2.6) MV EXCURSION: 20.824 mm (> 18.000) MV EF SLOPE: 120 mm/s (70 - 150) EPSS: 0.7 cm MV E Carlos: 0.92 m/s MV DecT: 153 ms MV A Carlos: 0.60 m/s MV E/A Ratio: 1.52 RAP: 5.00 mmHg RVSP: 23.58 mmHg FINDINGS -------- Sinus rhythm. This was a technically good study. The left ventricular size is normal. There is borderline concentric left ventricular hypertrophy. Overall left ventricular systolic function is normal with, an EF between 55 - 60 %. The right ventricle is mildly enlarged. Normal LA size by volume 22+/-6 ml/m2. The right atrium is normal in size. The aortic valve is trileaflet and appears structurally normal. There is trace to mild mitral regurgitation. Mild tricuspid regurgitation present. Right ventricular systolic pressure is normal at < 35 mmHg. The pulmonic valve was not well visualized. The aortic root size is normal. Normal inferior vena cava with normal inspiratory collapse consistent with estimated right atrial pre ssure of 5 mmHg. There is no pericardial effusion. CONCLUSIONS -------- 1. Sinus rhythm. 2. This was a technically good study. 3. The left ventricular size is normal. 4. There is borderline concentric left ventricular hypertrophy. 5. Overall left ventricular systolic function is normal with, an EF between 55 - 60 %. 6. The right ventricle is mildly enlarged. 7. Normal LA size by volume 22+/-6 ml/m2. 8. The right atrium is normal in size. 9. The aortic valve is trileaflet and appears structurally normal. 10. There is trace to mild mitral regurgitation. 11. Mild tricuspid regurgitation present. 12. Right ventricular systolic pressure is normal at < 35 mmHg. 13. The pulmonic valve was not well visualized. 14. The aortic root size is normal. 15. Normal inferior vena cava with normal inspiratory collapse consistent with estimated right atrial pressure of 5 mmHg. 16. There is no pericardial effusion. CEMETERY MANAGER: Risa Mcqueen RDCS
[2018-11-02 16:32] LABS: Glucose,Whole Blood 163 mg/dL (75-99)
[2018-11-02] MEDS: ATORVASTATIN 80 MG TAB PO SCH (19:57)
[2018-11-02 20:35] LABS: Glucose,Whole Blood 175 mg/dL (75-99)
--- NOTE | 2018-11-02 22:43 | P.HPIM ---
History of Present Illness H&P Date: 11/02/18 Chief Complaint: Dyspnea Patient is a 33-year-old male with a known history of coronary artery disease with stent placement and hypertension, diabetes type 2, hyperlipidemia, history of [place] came to ER with complaints of generalized weakness, exertional shortness of breath and sweating which he experienced during previous heart attack. Patient says that his blood pressure is uncontrolled recently and also blood sugar is high recently. Denied any chest pain otherwise. Denied any recent illnesses. No cough is from production. No nausea vomiting or abdominal pain. EKG showed normal sinus rhythm with flattening of the T waves in the precordial leads. Chest x-ray showed no acute cardio pulmonary process Troponin 2 negative Potassium 5.6 with slight hemolysis Past Medical History Past Medical History: Coronary Artery Disease (CAD), Chest Pain / Angina, Diabetes Mellitus, GERD/Reflux, Hyperlipidemia, Hypertension, Myocardial Infarction ([place]) Additional Past Medical History / Comment(s): NIDDM type II, fungal mass R lung with surgical removal Last Myocardial Infarction Date:: 12/23/11 History of Any Multi-Drug Resistant Organisms: None Reported Past Surgical History: Heart Catheterization, Heart Catheterization With Stent Additional Past Surgical History / Comment(s): WEDGE resection RIGHT LUNG 2011,. UNDESCENDED TESTICLE REMOVED. 7 stents Past Anesthesia/Blood Transfusion Reactions: No Reported Reaction Date of Last Stent Placement:: december 2017 Past Psychological History: No Psychological Hx Reported Additional Psychological History / Comment(s): Pt resides with his spouse and 3 children. He is independent. He is a arc welder apprentice. Smoking Status: Never smoker Past Alcohol Use History: None Reported Past Drug Use History: Marijuana - Past Family History Mother Family Medical History: Diabetes Mellitus Additional Family Medical History / Comment(s): NIDDM Father Additional Family Medical History / Comment(s): hypoglycemia. Medications and Allergies Home Medications Medication Instructions Recorded Confirmed Type Atorvastatin [Lipitor] 80 mg PO HS #30 tab 04/14/16 11/01/18 Rx Prasugrel [Effient] 10 mg PO DAILY #30 tab 07/26/16 11/01/18 Rx metFORMIN HCL 1,000 mg PO BID 03/08/17 11/01/18 History Aspirin 325 mg PO DAILY tab 01/28/18 11/01/18 Rx Nitroglycerin Sl Tabs [Nitrostat] 0.4 mg SUBLINGUAL Q5M PRN #50 tab 01/28/18 11/01/18 Rx Allopurinol [Zyloprim] 300 mg PO DAILY PRN 11/01/18 11/01/18 History Lisinopril 40 mg PO BID 11/01/18 11/01/18 History Metoprolol Tartrate [Lopressor] 100 mg PO BID 11/01/18 11/01/18 History Allergies Allergy/AdvReac Type Severity Reaction Status Date / Time No Known Allergies Allergy Verified 11/01/18 11:03 Physical Exam Vitals: Vital Signs Temp Pulse Pulse Pulse Resp BP BP 11/02/18 08:00 97.8 F 76 16 120/79 11/02/18 03:55 98.3 F 82 16 138/89 11/02/18 03:26 83 17 11/02/18 00:11 98.2 F 90 16 160/70 11/01/18 23:21 81 17 11/01/18 19:58 85 17 11/01/18 19:10 98.3 F 79 16 163/83 11/01/18 16:00 83 18 11/01/18 15:40 11/01/18 14:55 98.0 F 83 18 137/77 11/01/18 14:11 83 16 136/78 11/01/18 12:26 84 16 128/85 11/01/18 11:19 87 16 147/98 11/01/18 10:47 97.7 F 84 20 158/110 Pulse Ox 11/02/18 08:00 98 11/02/18 03:55 97 11/02/18 03:26 11/02/18 00:11 97 11/01/18 23:21 11/01/18 19:58 11/01/18 19:10 96 11/01/18 16:00 11/01/18 15:40 99 11/01/18 14:55 97 11/01/18 14:11 95 11/01/18 12:26 95 11/01/18 11:19 96 11/01/18 10:47 99 Intake and Output 11/01/18 11/02/18 11/02/18 22:59 06:59 14:59 Intake Total 240 Balance 240 Intake: Oral 240 Other: Voiding Method Toilet Toilet Toilet # Voids 1 1 Results CBC & Chem 7: 11/01/18 11:14 11/01/18 11:14 Labs: Abnormal Lab Results - Last 24 Hours (Table) 11/01/18 11/01/18 11/01/18 Range/Units 10:30 11:14 11:14 APTT 21.1 L (22.0-30.0) sec Potassium 5.6 H (3.5-5.1) mmol/L Glucose 134 H (74-99) mg/dL POC Glucose (mg/dL) (75-99) mg/dL Calcium 10.5 H (8.4-10.2) mg/dL Total Protein 8.5 H (6.3-8.2) g/dL Albumin 5.3 H (3.5-5.0) g/dL Ur Specific [place] 1.040 H (1.001-1.035) Urine Protein Trace H (Negative) Urine Glucose (UA) 4+ H (Negative) Urine Ketones Trace H (Negative) 11/01/18 11/01/18 11/01/18 Range/Units 11:28 16:29 19:58 APTT (22.0-30.0) sec Potassium (3.5-5.1) mmol/L Glucose (74-99) mg/dL POC Glucose (mg/dL) 123 H 123 H 164 H (75-99) mg/dL Calcium (8.4-10.2) mg/dL Total Protein (6.3-8.2) g/dL Albumin (3.5-5.0) g/dL Ur Specific [place] (1.001-1.035) Urine Protein (Negative) Urine Glucose (UA) (Negative) Urine Ketones (Negative) 11/02/18 Range/Units 06:41 APTT (22.0-30.0) sec Potassium (3.5-5.1) mmol/L Glucose (74-99) mg/dL POC Glucose (mg/dL) 130 H (75-99) mg/dL Calcium (8.4-10.2) mg/dL Total Protein (6.3-8.2) g/dL Albumin (3.5-5.0) g/dL Ur Specific [place] (1.001-1.035) Urine Protein (Negative) Urine Glucose (UA) (Negative) Urine Ketones (Negative) Thrombosis Risk Factor Assmnt - Choose All That Apply Any of the Below Risk Factors Present?: Yes Each Factor Represents 1 point: Obesity (BMI >25) Other Risk Factors: No Thrombosis Risk Factor Assessment Total Risk Factor Score: 1 Thrombosis Risk Factor Assessment Level: Low Risk Assessment and Plan Assessment: Shortness of breath and diaphoresis. Atypical chest pain. History of coronary disease with history of multiple stents placement Uncontrolled diabetes type 2 Uncontrolled hypertension. Currently controlled now. Check his B A1c Mild hyperkalemia 5.6 with slight hemolysis Hyperlipidemia History of [place] Fungal mass right lung with surgical removal History of marijuana use Plan: Patient will be continued on telemetry monitoring. Serial EKG. Troponin 2 negative. Continue with home blood pressure medications, metoprolol and lisinopril. Continue with insulin sliding-scale for blood sugar. Will hold metformin due to possible cath tomorrow. Cardiology is on board. Further recommendations based on the clinical course. Repeat BMP tomorrow. Time with Patient: Greater than 30
[2018-11-03 06:55] LABS: Glucose,Whole Blood 164 mg/dL (75-99)
[2018-11-03] MEDS: INSULIN ASPART (NovoLOG) 100 UNIT/ML VIAL SQ SCH ×4 (08:02→21:11)
[2018-11-03] MEDS: METOPROLOL TARTRATE 50 MG TAB PO SCH ×2 (08:06→21:12)
[2018-11-03] MEDS: ASPIRIN 325 MG TAB PO SCH (08:06)
[2018-11-03] MEDS: LISINOPRIL 20 MG TAB PO SCH ×2 (08:06→21:12)
[2018-11-03 08:48] LABS: African American GFR (CKD) >90 (>60 ml/min/1.73 sqM); Anion Gap 10 mmol/L; Blood Urea Nitrogen 14 mg/dL (9-20); Calcium 9.4 mg/dL (8.4-10.2); Carbon Dioxide 27 mmol/L (22-30); Chloride 102 mmol/L (98-107); Cholesterol 76 mg/dL (<200); Glucose 175 mg/dL (74-99); HDL Cholesterol 24 mg/dL (40-60); LDL Cholesterol,Calculated 26 mg/dL (0-99); Potassium 4.9 mmol/L (3.5-5.1); Sodium 139 mmol/L (137-145); Triglycerides 129 mg/dL (<150)
[2018-11-03] MEDS ORDERED: IV FLUID CONTINUATION 950 ML IV ONE (09:20)
[2018-11-03] MEDS ORDERED: HEPARIN SODIUM 1,000 UN/ML (10ML VL) ONE ×2 (09:31→10:15)
[2018-11-03] MEDS ORDERED: VERAPAMIL 2.5 MG/ML 2 ML AMP ONE (09:31)
[2018-11-03] MEDS ORDERED: LIDOCAINE 1% INJ 10MG/ML (20 ML MDV) ONE (09:31)
[2018-11-03] MEDS ORDERED: MIDAZOLAM (PF) 2 MG/2 ML VIAL IV ONE (09:42)
[2018-11-03] MEDS ORDERED: LIDOCAINE 1% INJ 10MG/ML (20 ML MDV) SQ ONE ×2 (09:44)
[2018-11-03] MEDS: VERAPAMIL SYRINGE (5 MG/10 ML) INTRAARTER ONE ×2 (09:45→10:53)
[2018-11-03] MEDS ORDERED: HEPARIN SODIUM 1,000 UN/ML (10ML VL) IV ONE (09:45)
[2018-11-03] MEDS ORDERED: NITROGLYCERIN 1000MCG/10ML SYRINGE INTRACORON ONE (09:53)
[2018-11-03] MEDS: HEPARIN SODIUM 1,000 UN/ML (10ML VL) IV ONE ×2 (10:21→10:56)
[2018-11-03] MEDS ORDERED: ADENOSINE 180 MG in SODIUM CHLORIDE 0.9% 30 ML IVP ONE (10:31)
[2018-11-03] MEDS ORDERED: PRASUGREL 10 MG TAB ONE (10:46)
[2018-11-03] MEDS ORDERED: PRASUGREL 10 MG TAB PO ONE (10:55)
[2018-11-03] MEDS ORDERED: ZOLPIDEM 5 MG TAB PO PRN (10:57)
[2018-11-03] MEDS ORDERED: RX INFO: IV CONTRAST WAS GIVEN 1 EACH MISC MISCELLANE PRN (10:57)
[2018-11-03] MEDS ORDERED: ATROPINE SULFATE 0.1 MG/ML 10ML SYRINGE IV PRN (10:57)
[2018-11-03] MEDS ORDERED: NITROGLYCERIN SL TABS 0.4 MG TAB SUBLINGUAL PRN (10:57)
[2018-11-03] MEDS ORDERED: MAG HYDROX/AL HYDROX/SIMETH 30 ML CUP PO PRN (10:57)
[2018-11-03] MEDS ORDERED: SODIUM CHLORIDE 0.9% 1,000 ML IV SCH (11:00)
[2018-11-03] MEDS ORDERED: IOPAMIDOL-370 150ML BTL INJ ONE (11:02)
[2018-11-03 11:53] LABS: Glucose,Whole Blood 184 mg/dL (75-99)
[2018-11-03] MEDS: PRASUGREL 10 MG TAB PO SCH (12:20)
--- NOTE | 2018-11-03 13:35 | LTR ---
November 03, 2018. Dear Dr. Castillo: Mr. Thee Morse underwent successful stenting of the proximal right coronary artery with good angiographic results and without any complication. I want to thank you for allowing me to participate in his care and please do not hesitate to call if you have any question or any concerns. Sincerely, MD ABDULAZIZ Garcia / NILSA: [phone] /
--- NOTE | 2018-11-03 13:35 | CC ---
CARDIAC CATHETERIZATION REPORT DATE OF SERVICE: November 03, 2018 PERFORMING PHYSICIAN: Joel Miles MD, pan pusher. PROCEDURE PERFORMED: 1. Selective right and left coronary angiogram. 2. Left heart catheterization. 3. Fractional flow reserve, FFR, of the right coronary artery, RCA. 4. Successful stenting of the proximal left anterior descending artery using 3.0 x 15 mm Xience drug-eluting stent with an excellent angiographic results and reduction of stenosis from 70% to 0%. INDICATION: This is a pleasant 33-year-old gentleman with history of coronary artery disease and prior stenting of the left circumflex and RCA, who does follow with a accounts collector out of the town who presented to the hospital complaining of chest discomfort concerning for angina. He was seen and evaluated by Dr. Jung who did recommend proceeding with coronary angiogram. APPROACH: Right radial artery. COMPLICATION: None. LEVEL OF SEDATION: Moderate with sedation length of 57 minutes. PROCEDURE DESCRIPTION: After obtaining an informed consent, the patient was brought to the cardiac laborer driver. The right radial artery was cannulated using micropuncture technique, the micropuncture wire passed easily then I placed a 6-Macedonian sheath in the right radial artery. After that, I did give the patient 2 mg of verapamil IA and 10,000 units of heparin IV. I did selective right and left coronary angiogram using JR4 3.5 and JL3 catheters. I did left heart catheterization using 5-Macedonian pigtail catheter. After that, I did a fractional flow reserve, FFR, and intervene on the RCA. Please see a separate paragraph for that. SELECTIVE CORONARY ANGIOGRAM: 1. The right coronary artery is a large caliber vessel and it is a dominant vessel. The proximal RCA is stented with in-stent restenosis appeared to be in the range in the range of moderate to severe. I did FFR and that came into be ischemic. The mid RCA is stented and the stent appeared to be patent. The RCA distally appeared to have mild disease only and bifurcates into PDA and PLV branches. The PLV branch of the RCA has a lesion appeared to be in the range of 60%. Seems to be unchanged compared to before. 2. The left main is a large caliber vessel and it it is a long vessel. It has mild disease only. It bifurcates into left circumflex, and left anterior descending artery. 3. The left circumflex is a large caliber vessel. It is a nondominant vessel. The proximal left circumflex appeared to have mild disease only and gives rise into the first obtuse marginal branch which has a high takeoff, which has an ostial lesion in the range of 60% to 70% and mid lesion in the range of 60% to 70%. The second obtuse marginal branch is stented and the stent appears to have mild in-stent restenosis. The left circumflex continues after that as a small-caliber vessel in the AV groove. 4. The LAD: The proximal LAD appeared to have mild disease only. The mid LAD and distal LAD appear to have mild disease only as well. The LAD gives rise into multiple small diagonal branches. HEMODYNAMICS: The left ventricular end-diastolic pressure was about 8 mmHg without significant gradient across the aortic valve. FFR OF THE RCA AFTER PCI OF THE RCA: Anticoagulation was achieved with heparin with continuous ACT monitoring throughout the procedure. I did an ACT check before I inserted the FFR wire and I gave additional 3000 units of heparin. Continuous ACT monitoring was performed. After zeroing the Doppler wire and equalizing between the Doppler wire and the guiding catheter which JR4 3.5 short tip guiding catheter, I did FFR per IV adenosine infusion. The FFR came in to be at 0.78. That was performed with the adenosine infusion. After that, I did balloon angioplasty of the proximal right coronary artery over the FFR wire. The balloon angioplasty was performed using the 2.5 x 12 mm AngioSculpt balloon which was inflated 3 times in the proximal right coronary artery inside the stent. Then I did stent the proximal RCA using 3.0 x 15 mm Xience RICARDO where the stent was positioned under fluoroscopy guidance and deployed under 16 atmospheres for 20 seconds with the following angiogram showing good angiographic results with reduction of stenosis from 70% to 0%. CONCLUSION: 1. Severe in-stent restenosis involving the proximal RCA. 2. Intermediate disease involving the left circumflex coronary system. 3. Mild disease involving the LAD system. 4. Successful stenting of the proximal right coronary artery using 3.0 x 15 mm Xience RICARDO with good angiographic results and reduction of stenosis from 70% to 0%. POSTPROCEDURE MANAGEMENT: 1. Dual anti-platelet therapy. 2. Risk factors modifications. 3. Follow up with the patient. MMODL / IJN: [id number] /
[2018-11-03 14:32] VITALS: BMI 36.9
[2018-11-03 17:36] LABS: Glucose,Whole Blood 156 mg/dL (75-99)
[2018-11-03 21:04] LABS: Glucose,Whole Blood 185 mg/dL (75-99)
[2018-11-03] MEDS: ATORVASTATIN 80 MG TAB PO SCH (21:12)
--- NOTE | 2018-11-03 23:26 | P.PN ---
Subjective Progress Note Date: 11/03/18 Principal diagnosis: Chest pain status post cardiac catheterization stent placement Patient is a 33-year-old male with a known history of coronary artery disease with stent placement and hypertension, diabetes type 2, hyperlipidemia, history of VT came to ER with complaints of generalized weakness, exertional shortness of breath and sweating which he experienced during previous heart attack. Patient says that his blood pressure is uncontrolled recently and also blood sugar is high recently. Denied any chest pain otherwise. Denied any recent illnesses. No cough is from production. No nausea vomiting or abdominal pain. EKG showed normal sinus rhythm with flattening of the T waves in the precordial leads. Chest x-ray showed no acute cardio pulmonary process Troponin 2 negative Potassium 5.6 with slight hemolysis 11/03/2018 Patient underwent cardiac catheter patient successful stenting of proximal left main. Currently patient is being monitored in the ICU. No complaints of chest pain. No shortness of breath. Cardiology is on board. Current medications reviewed. Objective - Vital Signs Vital signs: Vital Signs Temp 97.7 F 11/03/18 11:40 Pulse 74 11/03/18 17:00 Resp 15 11/03/18 17:00 BP 138/96 11/03/18 17:00 Pulse Ox 95 11/03/18 17:00 Intake & Output 11/03/18 11/03/18 11/04/18 06:59 18:59 06:59 Intake Total 407 Output Total 0 Balance 407 Weight 116.8 kg 116.8 kg Intake: IV 257 Intake, IV Titration 150 Amount Sodium Chloride 0.9% 1, 150 000 ml @ 75 mls/hr IV . [id number] [facility] Rx#:[id number] Output: Urine 0 Other: Voiding Method Toilet Toilet # Voids 1 - Exam PHYSICAL EXAMINATION: Patient is lying in the bed comfortably, no acute distress, awake alert and oriented.. HEENT: Normocephalic. Neck is supple. Pupils reactive. Nostrils clear. Oral cavity is moist. Ears reveal no drainage. Neck reveals no JVD, carotid bruits, or thyromegaly. CHEST EXAMINATION: Trachea is central. Symmetrical expansion. Lung rainey clear to auscultation and percussion. CARDIAC: Normal S1, S2 with no gallops. No murmurs ABDOMEN: Soft. Bowel sounds normal. No organomegaly. No abdominal bruits. Extremities: reveal no edema. No clubbing or cyanosis Neurologically awake, alert, oriented x3 with well-coordinated movements. No focal deficits noted Skin: No rash or skin lesions. Psychiatric: Coperative. Nonsuicidal Musculoskeletal: No joint swelling or deformity. Normal range of motion. - Labs CBC & Chem 7: 11/01/18 11:14 11/03/18 07:23 Labs: Abnormal Lab Results - Last 24 Hours (Table) 11/02/18 11/03/18 11/03/18 Range/Units 20:33 06:53 07:23 Glucose 175 H (74-99) mg/dL POC Glucose (mg/dL) 175 H 164 H (75-99) mg/dL HDL Cholesterol 24 L (40-60) mg/dL 11/03/18 11/03/18 Range/Units 11:40 17:14 Glucose (74-99) mg/dL POC Glucose (mg/dL) 184 H 156 H (75-99) mg/dL HDL Cholesterol (40-60) mg/dL Assessment and Plan Assessment: Shortness of breath and diaphoresis. Atypical chest pain. Status post cardiac catheterization and stent placement. History of coronary disease with history of multiple stents placement Uncontrolled diabetes type 2 Uncontrolled hypertension. Currently controlled now. 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 Serial EKG. Troponin 2 negative. Continue with home blood pressure medications, metoprolol and lisinopril. Continue with insulin sliding-scale for blood sugar. Metformin will be started back.. Cardiology is on board. Further recommendations based on the clinical course. Time with Patient: Greater than 30
[2018-11-04] MEDS ORDERED: ALLOPURINOL 300 MG TAB PO PRN
[2018-11-04 05:32] LABS: African American GFR (CKD) >90 (>60 ml/min/1.73 sqM)
[2018-11-04 08:06] LABS: Glucose,Whole Blood 203 mg/dL (75-99)
--- NOTE | 2018-11-04 08:11 | P.DS ---
Providers Date of admission: 11/02/18 14:56 Attending physician: Noe Castillo Consults: 11/01/18 12:41 Consult Physician Routine Consulting Provider: Shaka Giles Consult Reason/Comments: CP Do you want consulting provider notified?: Yes 11/03/18 10:57 Consult Physician Routine Consulting Provider: [facility] Consult Reason/Comments: Post Interventional patient Do you want consulting provider notified?: Already Contacted Primary care physician: Noe Castillo [facility] Course: This is a discharge summary 33-year-old white male with poorly controlled diabetes who has element of coronary disease. Anginal equivalent chest pain with stent placed. The patient is stable. We stressed tight blood sugar control. As an outpatient, we will go ahead and do continuous glucose monitoring to titrate his sugar properly. The patient will be discharged once cleared by consultants. Patient Condition at Discharge: Stable Plan - Discharge Summary Discharge Rx Participant: No New Discharge Prescriptions: Continue RX: Atorvastatin [Lipitor] 80 mg PO HS #30 tab RX: Prasugrel [Effient] 10 mg PO DAILY #30 tab RX: metFORMIN HCL 1,000 mg PO BID RX: Aspirin 325 mg PO DAILY tab RX: Nitroglycerin Sl Tabs [Nitrostat] 0.4 mg SUBLINGUAL Q5M PRN #50 tab PRN Reason: Chest Pain RX: Metoprolol Tartrate [Lopressor] 100 mg PO BID RX: Lisinopril 40 mg PO BID RX: Allopurinol [Zyloprim] 300 mg PO DAILY PRN PRN Reason: GOUT Discharge Medication List RX: Atorvastatin [Lipitor] 80 mg PO HS #30 tab 04/14/16 [Rx] RX: Prasugrel [Effient] 10 mg PO DAILY #30 tab 07/26/16 [Rx] RX: metFORMIN HCL 1,000 mg PO BID 03/08/17 [History] RX: Aspirin 325 mg PO DAILY tab 01/28/18 [Rx] RX: Nitroglycerin Sl Tabs [Nitrostat] 0.4 mg SUBLINGUAL Q5M PRN #50 tab 01/28/18 [Rx] RX: Allopurinol [Zyloprim] 300 mg PO DAILY PRN 11/01/18 [History] RX: Lisinopril 40 mg PO BID 11/01/18 [History] RX: Metoprolol Tartrate [Lopressor] 100 mg PO BID 11/01/18 [History] Follow up Appointment(s)/Referral(s): Noe Castillo MD [Primary Care Provider] - 1-2 days
[2018-11-04] MEDS: ASPIRIN 325 MG TAB PO SCH (08:26)
[2018-11-04] MEDS: INSULIN ASPART (NovoLOG) 100 UNIT/ML VIAL SQ SCH ×2 (08:27→12:18)
[2018-11-04] MEDS: LISINOPRIL 20 MG TAB PO SCH (08:27)
[2018-11-04] MEDS: METOPROLOL TARTRATE 50 MG TAB PO SCH (08:27)
[2018-11-04 10:05] LABS: Hemoglobin A1C 10.4 % (4.0-6.0)
[2018-11-04 11:23] LABS: Glucose,Whole Blood 200 mg/dL (75-99)
[2018-11-04] MEDS ORDERED: amLODIPine 5 MG TAB PO SCH (11:45)
[2018-11-04] MEDS ORDERED: HYDROmorphone 1 MG/ML 1 ML SYRINGE IVP STA (12:29)
[2018-11-04] MEDS: PRASUGREL 10 MG TAB PO SCH (12:56)
[2018-11-04 12:58] VITALS: BP 133/74
[2018-11-04 13:42] VITALS: RESP 16; TEMP 98.6
[2018-11-04 13:45] VITALS: PULSE 66
--- NOTE | 2018-11-04 16:07 | P.PN ---
Subjective Patient is doing well. He has no chest discomfort no dizziness lightheadedness no headache no neurologic symptoms He underwent coronary stenting yesterday and he did well He has not had any acute bicarbonate function Impression is better controlled Vitals are stable blood pressure 117/74 mmHg pulse rate in the 60s normal respirations afebrile Breath sounds are clear no rhonchi no crackles Heart sounds S1 and S2 normal no murmurs or gallops or rub Extended is warm no edema Impression Hypertension. I think this gentleman has uncontrolled hypertension and that causes symptoms of headache and feeling weak Coronary artery disease status post coronary stenting Plan Discharge home today patient is stable from a cardiac vascular standpoint I will treat him with Isuprel 40 mg by mouth daily, amlodipine 5 g daily, dual antiplatelet therapy, statins and metoprolol He will follow-up with his primary sports book server at [facility] within the week Objective - Vital Signs Vital signs: Vital Signs Temp 98.6 F 11/04/18 13:00 Pulse 65 11/04/18 13:00 Resp 16 11/04/18 13:00 BP 133/74 11/04/18 13:00 Pulse Ox 95 11/04/18 13:00 Intake & Output 11/03/18 11/04/18 11/04/18 18:59 06:59 18:59 Intake Total 407 400 Output Total 0 Balance 407 400 Weight 116.8 kg 116.7 kg Intake: IV 257 Intake, IV Titration 150 Amount Sodium Chloride 0.9% 1, 150 000 ml @ 75 mls/hr IV . [id number] [facility] Rx#:[id number] Oral 400 Output: Urine 0 Other: Voiding Method Toilet Toilet Toilet # Voids 1 1 - Labs CBC & Chem 7: 11/01/18 11:14 11/04/18 04:45 Labs: Abnormal Lab Results - Last 24 Hours (Table) 11/03/18 11/03/18 11/03/18 Range/Units 07:23 17:14 20:50 Creatinine (0.66-1.25) mg/dL POC Glucose (mg/dL) 156 H 185 H (75-99) mg/dL Hemoglobin A1c 10.4 H (4.0-6.0) % 11/04/18 11/04/18 11/04/18 Range/Units 04:45 08:03 11:10 Creatinine 0.59 L (0.66-1.25) mg/dL POC Glucose (mg/dL) 203 H 200 H (75-99) mg/dL Hemoglobin A1c (4.0-6.0) %
[2018-11-05] MEDS ORDERED: LISINOPRIL 20 MG TAB PO SCH (09:00)
== END 2018-11-04 14:10 | disposition home or self-care (01) ==
LOC: EC 10:43 → 1SOBS 12:40 → INTOOBSV 11-02 14:56 → OBSVTOIN 11-02 14:56 → 2SICU 11-03 11:07 → UNDODISIN 11-04 14:10 → UNDODISOB 11-04 14:10
PROVIDERS: ADMIT Family Medicine; ATTEND Family Medicine
PROC: B2151ZZ Fluoroscopy of Left Heart using Low Osmolar Contrast (ICD-10-PCS; 2018-11-03)
PROC: 027034Z Dilation of Coronary Artery, One Artery with Drug-eluting Intraluminal Device, Percutaneous Approach (ICD-10-PCS; principal; 2018-11-03 09:20)
PROC: 4A023N7 Measurement of Cardiac Sampling and Pressure, Left Heart, Percutaneous Approach (ICD-10-PCS; 2018-11-03 09:20)
PROC: B2111ZZ Fluoroscopy of Multiple Coronary Arteries using Low Osmolar Contrast (ICD-10-PCS; 2018-11-03 09:20)
DX: I25.110 Atherosclerotic heart disease of native coronary artery with unstable angina pectoris (principal); I25.118 Atherosclerotic heart disease of native coronary artery with other forms of angina pectoris; T82.855A Stenosis of coronary artery stent, initial encounter; E87.5 Hyperkalemia; E11.65 Type 2 diabetes mellitus with hyperglycemia; I10 Essential (primary) hypertension; E78.00 Pure hypercholesterolemia, unspecified; E66.9 Obesity, unspecified; Z68.36 Body mass index [BMI] 36.0-36.9, adult; K21.9 Gastro-esophageal reflux disease without esophagitis; E78.5 Hyperlipidemia, unspecified; E07.9 Disorder of thyroid, unspecified; I25.2 Old myocardial infarction; Z79.84 Long term (current) use of oral hypoglycemic drugs; Z79.82 Long term (current) use of aspirin; Z79.02 Long term (current) use of antithrombotics/antiplatelets; Z79.899 Other long term (current) drug therapy; Z95.5 Presence of coronary angioplasty implant and graft; Z90.2 Acquired absence of lung [part of]; Z83.3 Family history of diabetes mellitus; Z90.79 Acquired absence of other genital organ(s)
CPT/HCPCS: 96361 ×3; 96360; 99285; 36415; 93005; 93306; 93571; 93458; 85347; 83880; 80061; 80053; 80048; 82565; 83690; 83735; 84484 ×2; 85025; 85610; 85730; 81003; 80306; 83036; 71046; G0378 ×5; C9600; C1887; C1725; C1874; C1769; C1894; J2001; J1644; J0153; J2250; Q9967

== ENCOUNTER 2018-11-05 21:00 | Emergency (ER) | payer BC ==
[2018-11-05 21:17] VITALS: BP 138/96; PULSE 89; RESP 20; TEMP 98.4
[2018-11-05] MEDS ORDERED: SULFAMETHOX-TMP 800-160MG 1 EACH TAB PO STA (22:28)
--- NOTE | 2018-11-05 22:35 | ED ---
Skin/Abscess/FB HPI - General Chief complaint: Skin/Abscess/Foreign Body Stated complaint: heart cath on sunday, swollen wrist Time Seen by Provider: 11/05/18 21:19 Source: patient Mode of arrival: ambulatory Limitations: no limitations - History of Present Illness Initial comments: This patient is a 33-year-old man who presents to be evaluated for what he is concerned is an infection to the site of a heart catheterization that was performed 11/02/2018. The patient indicated that he noticed what he is describing as pus at the site of the heart catheterization puncture. The patient denies any systemic symptoms, including no fever or chills, palpitations, chest pain, dyspnea. He states that he noticed a white spot at the site of the puncture this afternoon. There has been no drainage. complaint: other -: hour(s) Tetanus Up to Date: yes Location: RUE Severity: mild Improves with: none Worsens with: none Context: none Associated symptoms: denies other symptoms Treatments Prior to Arrival: none - Related Data Home Medications Medication Instructions Recorded Confirmed metFORMIN HCL 1,000 mg PO BID 03/08/17 11/05/18 Allopurinol [Zyloprim] 300 mg PO DAILY PRN 11/01/18 11/05/18 Jardiance (Unknown) 1 tab PO DAILY 11/05/18 11/05/18 Liraglutide [Victoza 2-Aurelio] 1.8 mg SQ DAILY 11/05/18 11/05/18 Metoprolol Tartrate [Lopressor] 50 mg PO BID 11/05/18 11/05/18 Previous Rx's Medication Instructions Recorded Nitroglycerin Sl Tabs [Nitrostat] 0.4 mg SUBLINGUAL Q5M PRN #50 tab 01/28/18 Aspirin 81 mg PO DAILY #90 chewable 11/04/18 Atorvastatin [Lipitor] 80 mg PO HS #90 tab 11/04/18 Lisinopril [Zestril] 40 mg PO DAILY #90 tab 11/04/18 Prasugrel [Effient] 10 mg PO DAILY #90 tab 11/04/18 amLODIPine [Norvasc] 5 mg PO DAILY #90 tab 11/04/18 Sulfamethox-Tmp 800-160Mg [Bactrim 1 each PO Q12HR #14 tab 11/06/18 Ds] Allergies Allergy/AdvReac Type Severity Reaction Status Date / Time No Known Allergies Allergy Verified 11/05/18 21:35 Review of Systems ROS Statement: Those systems with pertinent positive or pertinent negative responses have been documented in the HPI. ROS Other: All systems not noted in ROS Statement are negative. Constitutional: Denies: fever, chills Respiratory: Denies: cough, dyspnea Cardiovascular: Denies: chest pain, palpitations, dyspnea on exertion, syncope Gastrointestinal: Denies: abdominal pain Skin: Reports: as per HPI Past Medical History Past Medical History: Coronary Artery Disease (CAD), Chest Pain / Angina, Diabetes Mellitus, GERD/Reflux, Hyperlipidemia, Hypertension, Myocardial Infarct ion (MO) Additional Past Medical History / Comment(s): NIDDM type II, fungal mass R lung with surgical removal Last Myocardial Infarction Date:: 12/23/11 History of Any Multi-Drug Resistant Organisms: None Reported Past Surgical History: Heart Catheterization, Heart Catheterization With Stent Additional Past Surgical History / Comment(s): WEDGE resection RIGHT LUNG 2011,. UNDESCENDED TESTICLE REMOVED. 7 stents Past Anesthesia/Blood Transfusion Reactions: No Reported Reaction Date of Last Stent Placement:: december 2017 Past Psychological History: No Psychological Hx Reported Smoking Status: Never smoker Past Alcohol Use History: None Reported Past Drug Use History: Marijuana - Past Family History Mother Family Medical History: Diabetes Mellitus Additional Family Medical History / Comment(s): NIDDM Father Additional Family Medical History / Comment(s): hypoglycemia. General Exam Limitations: no limitations General appearance: alert, in no apparent distress Respiratory exam: Present: normal lung sounds bilaterally. Absent: respiratory distress, wheezes, rales, rhonchi, stridor Cardiovascular Exam: Present: regular rate, normal rhythm, normal heart sounds. Absent: systolic murmur, diastolic murmur, rubs, gallop Skin exam: Present: warm, dry, intact, normal color, other (Examination of the puncture site reveals what appears to be granulation tissue. No erythema or warmth. No drainage.) Course Vital Signs 11/05/18 21:13 Temperature 98.4 F Pulse Rate 89 Respiratory 20 Rate Blood Pressure 138/96 O2 Sat by Pulse 98 Oximetry Disposition Clinical Impression: Visit for wound check Disposition: HOME SELF-CARE Condition: Good Instructions (If sedation given, give patient instructions): Wound Infection (ED) Prescriptions: Sulfamethox-Tmp 800-160Mg [Bactrim Ds] 1 each PO Q12HR #14 tab Is patient prescribed a controlled substance at d/c from ED?: No Referrals: Noe Castillo MD [Primary Care Provider] - 1-2 days
--- NOTE | 2018-11-05 23:44 | US ---
EXAM: US Right Arterial Upper Extremity - Limited - Right radial artery CLINICAL HISTORY: Reason: swelling, R/O aneurysm. Patient had heart cath on right radial artery on Sunday11/03/2018. Pain and swelling right wrist area of puncture site. TECHNIQUE: Real-time ultrasound of the right radial artery with image documentation. COMPARISON: None available FINDINGS: Limited arterial ultrasound performed of right radial artery in region of apparent clinical concern Imaged right radial artery is patent. No radial artery aneurysm identified. No focal fluid collection. IMPRESSION: Imaged right renal artery is patent. No evidence of aneurysm.
== END 2018-11-06 00:29 | disposition home or self-care (01) ==
LOC: EC 21:00
DX: Z51.89 Encounter for other specified aftercare (principal); I25.119 Atherosclerotic heart disease of native coronary artery with unspecified angina pectoris; E11.9 Type 2 diabetes mellitus without complications; I10 Essential (primary) hypertension; I25.2 Old myocardial infarction; Z79.84 Long term (current) use of oral hypoglycemic drugs; Z79.899 Other long term (current) drug therapy; Z95.1 Presence of aortocoronary bypass graft
CPT/HCPCS: 93976; 99283

== ENCOUNTER → 2021-06-08 | Outpatient (CLI) | payer OTHER, MEDICARE ==
[2021-06-08 09:49] LABS: Basophils # (A) 0.1 k/uL (0-0.2); Basophils % (A) 1 %; Eosinophils # (A) 0.2 k/uL (0-0.7); Eosinophils % (A) 3 %; HCT 46.6 % (39.0-53.0); HGB 15.8 gm/dL (13.0-17.5); Lymphocytes # (A) 2.7 k/uL (1.0-4.8); Lymphocytes % (A) 35 %; MCH 29.9 pg (25.0-35.0); MCV 88.1 fL (80.0-100.0); Mean Platelet Volume 7.5; Monocytes # (A) 0.5 k/uL (0-1.0); Monocytes % (A) 6 %; Neutrophils # (A) 4.1 k/uL (1.3-7.7); Neutrophils % (A) 53 %; Platelet Count 289 k/uL (150-450); RBC 5.29 m/uL (4.30-5.90); RDW 13.2 % (11.5-15.5); WBC 7.7 k/uL (3.8-10.6)
[2021-06-08 09:59] LABS: Potassium 4.9 mmol/L (3.5-5.1)
== END | disposition home or self-care (01) ==
LOC: LABWHC1 08:33
PROVIDERS: ATTEND Orthopaedic Surgery
DX: Z01.812 Encounter for preprocedural laboratory examination (principal); M75.42 Impingement syndrome of left shoulder
CPT/HCPCS: 36415; 80051; 85025

== ENCOUNTER 2021-06-09 05:45 | Day surgery (SDC) | payer OTHER, MEDICARE ==
[2021-06-07 15:52] VITALS: BMI 35.9
--- NOTE | 2021-06-08 21:01 | HP ---
HISTORY AND PHYSICAL DATE OF SURGERY: 06/09/2021 Thee Morse is a 35-year-old patient seen with progressive left shoulder pain. We discussed options for treatment. He elected to proceed with arthroscopy. Consent was obtained. Medical clearance was provided by Dr. Castillo, cardiac clearance by Dr. Dempsey. PAST MEDICAL HISTORY: Cardiovascular disease, hypertension, hyperlipidemia, dup-piafyoh-lmakllogr diabetes. PAST SURGICAL HISTORY: Cardiac catheterization with stent insertion. DAILY MEDICATIONS: Allopurinol, amlodipine, atorvastatin, isosorbide, Jardiance, lisinopril, metformin, metoprolol, Ozempic. ALLERGIES: NONE. SOCIAL HISTORY: He denies tobacco use. PHYSICAL EVALUATION OF THE LEFT SHOULDER: Flexion is 110 degrees. Abduction is 90 degrees. External rotation is 50 degrees with pain and weakness. Tenderness along the anterolateral acromion and rotator cuff insertion. Impingement is positive at 50. Drop-arm sign is positive. Distal neurovascular exam is intact. IMAGING: Radiographs of the left shoulder: Type 2 acromion, acromioclavicular joint osteoarthritis and cystic changes of the tuberosity. MRI of left shoulder: Rotator cuff tear. IMPRESSION: 1. Left shoulder impingement with rotator cuff tear. 2. Left shoulder acromioclavicular joint osteoarthritis. 3. Hypertension. 4. Hyperlipidemia. 5. Qga-ebgxznd-vgviqjopp diabetes. 6. Cardiovascular disease. PLAN: Left shoulder arthroscopy with subacromial decompression, arthroscopic rotator cuff repair, Helen procedure and debridement. MMODL / IJN: [id number] /
[2021-06-09] MEDS ORDERED: LACTATED RINGERS 1,000 ML IV SCH (05:50)
[2021-06-09] MEDS ORDERED: LIDOCAINE 1% (10MG/ML) FOR IV START INTRADERMA PRN (05:50)
[2021-06-09] MEDS ORDERED: ONDANSETRON 4 MG/2 ML VIAL IVP ONE ×2 (05:50→06:14)
[2021-06-09 06:33] LABS: Glucose,Whole Blood 128 mg/dL (75-99)
[2021-06-09] MEDS ORDERED: SCOPOLAMINE 1.5MG/72HR PATCH TRANSDERM ONE (06:43)
[2021-06-09] MEDS ORDERED: HYDROmorphone 0.5 MG/0.5 ML SYRINGE IVP PRN (07:00)
[2021-06-09] MEDS ORDERED: MIDAZOLAM 2 MG/2 ML VIAL IVP ONE (07:24)
[2021-06-09] MEDS ORDERED: fentaNYL (PF) 50 MCG/ML 2 ML AMP IVP ONE (07:24)
[2021-06-09] MEDS ORDERED: PROPOFOL 10 MG/ML 20 ML VIAL IV ONE (07:33)
[2021-06-09] MEDS ORDERED: PHENYLEPHRINE-0.9% NACL SYG 1,000 MCG/10 ML SYRINGE ONE (07:33)
[2021-06-09] MEDS ORDERED: ePHEDrine 50 MG/ML 1 ML AMP ONE (07:33)
[2021-06-09] MEDS ORDERED: fentaNYL (PF) 50 MCG/ML 2 ML AMP ONE (07:33)
[2021-06-09] MEDS ORDERED: LIDOCAINE 1% INJ 10MG/ML (20 ML MDV) ONE (07:33)
[2021-06-09] MEDS ORDERED: SUCCINYLCHOLINE CHLORIDE 100 MG/5 ML SYR IV ONE (07:33)
--- NOTE | 2021-06-09 09:02 | P.OP ---
Date of Procedure: 06/09/21 Preoperative Diagnosis: Left shoulder impingement Postoperative Diagnosis: 1. Left shoulder rotator cuff tear 2. Left shoulder impingement 3. Left shoulder acromioclavicular joint osteoarthritis 4. Left shoulder superficial labral tear Procedure(s) Performed: 1. Left shoulder arthroscopic rotator cuff repair 2. Left shoulder arthroscopic subacromial decompression 3. Left shoulder arthroscopic Helen procedure 4. Left shoulder debridement superficial labral tear Implants: 15.5 Arthrex swivel lock anchor Anesthesia: GETA, regional (Interscalene block) Surgeon: Onur Higgins Manager Case Management #1: Jaquan Patton Estimated Blood Loss (ml): 11 Pathology: none sent Condition: stable Disposition: PACU Indications for Procedure: 35-year-old patient seen with progressive left shoulder pain. After treatment options were discussed, he elected to proceed with arthroscopy. Operative Findings: See description of procedure Description of Procedure: Patient underwent an interscalene block by department of anesthesia. The patient was then taken to the operative suite. The patient underwent a general anesthetic by the department of anesthesia. The patient was placed into a lateral position and secured. There was appropriate padding of the bony prominence. Left shoulder was then prepped and draped in normal sterile orthopedic fashion. We placed the extremity in 10 pounds of longitudinal traction. A posterior incision was now made for a posterior working portal site. The trocar and cannula were inserted into the glenohumeral joint. Arthroscopy was initiated. Spinal needle was now inserted anteriorly, to ascertain the anterior working portal site. An incision was now made in that area, a trocar was inserted followed by a probe. There was superficial tearing of the anterior and somewhat superior labrum. The biceps appeared intact. The remaining labrum appeared intact. There was no significant chondromalacia present. I debrided the superficial labral tears getting down to stable labral tissue. The residual labrum was probed and it was found to be stable. Instruments were now removed from glenohumeral joint. Utilizing the posterior working portal site, the trocar and cannula were inserted into the subacromial space. Arthroscopy initiated. I made an incision 2 fingerbreadths lateral to the acromion. I introduced my trocar followed by my ArthroCare ablator. I now began ablating thick subacromial bursal tissue, which exposed the undersurface of the anterior acromion. There was diminished subacromial space. There was a very prominent anterior acromion. A motorized bur was introduced and a subacromial decompression was performed. I also excised some osteophytes off the inferior aspect of the distal clavicle. The AC joint was visualized and noted to be fairly arthritic. The motorized bur was introduced in the anterior portal site and a Helen procedure was performed without difficulty, decompressing the AC joint nicely. I turned my attention to the rotator cuff. There was an area of significant tearing along the distal supraspinatus. Upon probing the area there was a full-thickness perforation present. I debrided the margins getting down to stable tendon tissue. The defect measured approximately 1-1.5 cm and was freely mobile over the footprint. I abraded the footprint with a motorized bur. With the assistance of Santiago RIVERA I pasted 3 everted mattress suture through good bites of rotator cuff tendon. I punched a hole in the footprint for insertion of a anchor. All 6 limbs of suture were passed through the eyelet of a 5.5 Arthrex swivel lock anchor. I placed the eyelet the pre-punched hole. I held in position while Santiago RIVERA tension all the suture limbs and the krishan the anchor with good fixation noted. All residual suture limbs were now clipped. We had good compression of the tendon along the entire footprint. Instruments now removed from the portal sites. All portal sites were approximated with nylon suture. Sterile dressings were applied followed by a shoulder sling. Jaquan RIVERA assisted in this case. The patient was awakened, transferred to a bed, and taken to recovery in stable condition.
[2021-06-09 09:09] VITALS: TEMP 97.3
[2021-06-09 09:20] LABS: Glucose,Whole Blood 133 mg/dL (75-99)
[2021-06-09 09:54] VITALS: RESP 16
--- NOTE | 2021-06-09 10:40 | P.ANPRN ---
Procedure Note - Anesthesia - Nerve Block Performed Left Interscalene Single Time Out Performed: Yes (723) Date of Procedure: 06/09/21 Procedure Start Time: :24 Procedure Stop Time: : Location of Patient: PreOp Indication: Acute Post-Operative Pain, Requested by Surgeon Specifically requested for management of pain by DrAbraham: Onur Higgins Sedation Type: Sedate with meaningful contact maintained Preparation: Sterile Prep Position: Supine Catheter: None Needle Types: Pajunk Needle Gauge: 21 Ultrasound used to visualize needle placement: Yes Ultrasound used to observe medication spread: Yes Injectate: 0.5% Ropivacaine (see comment for volume) (30cc) Blood Aspirated: No Pain Paresthesia on Injection Noted: No Resistance on Injection: Normal Image Stored and Saved: Yes Events: Uneventful and Well Tolerated
[2021-06-09 11:15] VITALS: BP 116/80; PULSE 89
== END 2021-06-09 11:16 | disposition home or self-care (01) ==
LOC: OR 05:45
PROVIDERS: ATTEND Orthopaedic Surgery
DX: M75.102 Unspecified rotator cuff tear or rupture of left shoulder, not specified as traumatic (principal); M25.812 Other specified joint disorders, left shoulder; M19.012 Primary osteoarthritis, left shoulder; M25.712 Osteophyte, left shoulder; S43.432A Superior glenoid labrum lesion of left shoulder, initial encounter; X58.XXXA Exposure to other specified factors, initial encounter; I25.10 Atherosclerotic heart disease of native coronary artery without angina pectoris; I11.9 Hypertensive heart disease without heart failure; E78.5 Hyperlipidemia, unspecified; I25.2 Old myocardial infarction; G47.33 Obstructive sleep apnea (adult) (pediatric); E11.9 Type 2 diabetes mellitus without complications; Z95.5 Presence of coronary angioplasty implant and graft; Z79.84 Long term (current) use of oral hypoglycemic drugs; Z79.899 Other long term (current) drug therapy
CPT/HCPCS: 64415; 76942; 29826; 29827; 29824; C1713; J2250; J0690; J2405; J2001; J3010; J2370; J0330; J2704

== ENCOUNTER → 2023-08-29 | Outpatient (CLI) | payer OTHER, MEDICARE ==
--- NOTE | 2023-08-29 15:01 | MR ---
EXAMINATION TYPE: MR shoulder RT wo con DATE OF EXAM: 08/29/2023 COMPARISON: No radiographic correlation available HISTORY: 38-year-old male S43.421A, sprain of right rotator cuff, Rt shoulder pain TECHNIQUE: Multiplanar, multisequence imaging of the right shoulder is performed without contrast. FINDINGS: The long biceps tendon is intact and appropriately situated along the bicipital groove. Mil d tenosynovial fluid is present. The subscapularis tendon is intact. Mild degenerative change at the AC joint with mild capsular hypertrophy and mild subchondral marrow e harsh. Capsular hypertrophy minimally impresses upon to the myotendinous junction of the supraspinatus . There is a small intrasubstance versus bursal sided tear measuring 6 x 6 mm at the anterior supraspin atus tendon footprint. In addition, there is a small 8 x 5 mm intrasubstance tear at the footprint at the junction of the nichole praspinatus and infraspinatus tendons. Some inhomogeneous signal is present in the tendons but otherwise, no high-grade partial or full-thic kness tear is seen. No atrophy of the rotator cuff musculature. No effusion within the subacromial/subdeltoid bursa. There is a small glenohumeral joint effusion. Signal within the substance of the superior glenoid la jessica extending into the biceps anchor and back to the posterior aspect of the superior labrum. No par alabral cyst. Mild thinning of the glenohumeral joint articular cartilage. There is some edematous thickening of the axillary recess 5 mm. Some soft tissue replacement in the r otator cuff interval. No Hill-Sachs deformity or os acromiale. Cortical and trabecular irregularity along the visualized pr oximal humeral shaft with intramedullary cystic components measuring up to 2.3 cm. Query Paget's dise ase or site of prior healed fracture deformity. IMPRESSION: 1. Supraspinatus and infraspinatus tendinosis. There is a small intrasubstance versus bursal sided te ar measuring 6 x 6 mm at the anterior supraspinatus tendon footprint. An additional 8 mm focus of int rasubstance change at the junction of the supraspinatus and infraspinatus tendons. No high-grade part ial or full-thickness rotator cuff tear. 2. SLAP tear. 3. Edematous thickening of the axillary recess. Soft tissue replacement in the rotator cuff interval. These are nonspecific findings but may be seen in the setting of adhesive capsulitis. Correlate with symptoms. 4. Mild AC joint OA. 5. Cortical and trabecular irregularity along the visualized proximal humeral shaft with some intrame dullary cystic components measuring up to 2.3 cm. Query Paget's disease or site of prior healed fract ure deformity. Consider radiographic correlation.
== END | disposition home or self-care (01) ==
LOC: RADMRIMAIN 09:25
PROVIDERS: ATTEND Family Medicine
DX: M19.011 Primary osteoarthritis, right shoulder (principal); M67.813 Other specified disorders of tendon, right shoulder; S43.421A Sprain of right rotator cuff capsule, initial encounter; X58.XXXA Exposure to other specified factors, initial encounter

== ENCOUNTER → 2023-09-21 | Outpatient (CLI) | payer OTHER, MEDICARE ==
[2023-09-21 15:04] LABS: Basophils # (A) 0.04 X 10*3/uL (0.00-0.10); Basophils % (A) 0.7 %; Eosinophils # (A) 0.29 X 10*3/uL (0.04-0.35); Eosinophils % (A) 4.8 %; HCT 45.1 % (39.6-50.0); HGB 15.3 g/dL (13.0-17.0); Lymphocytes # (A) 1.98 X 10*3/uL (0.90-5.00); Lymphocytes % (A) 32.8 %; MCH 29.4 pg (27.0-32.0); MCHC 33.9 g/dL (32.0-37.0); MCV 86.7 FL (80.0-97.0); Monocytes # (A) 0.45 X 10*3/uL (0.20-1.00); Monocytes % (A) 7.5 %; NRBC Per 100 WBC 0 X 10*3/uL (0.00-0.01); Neutrophils # (A) 3.25 X 10*3/uL (1.80-7.70); Neutrophils % (A) 53.9 %; Platelet Count 282 X 10*3/uL (140-440); RDW 13.1 % (11.5-14.5); WBC 6.03 X 10*3/uL (4.50-10.00)
[2023-09-21 15:38] LABS: Anion Gap 10.3 mmol/L (4.00-12.00); Carbon Dioxide 26.7 mmol/L (21.6-31.8); Potassium 4.6 mmol/L (3.5-5.5)
== END | disposition home or self-care (01) ==
LOC: LABPAT 10:01
PROVIDERS: ATTEND Orthopaedic Surgery
DX: Z01.812 Encounter for preprocedural laboratory examination (principal); M75.41 Impingement syndrome of right shoulder
CPT/HCPCS: 36415; 80051; 85025

== ENCOUNTER 2023-10-04 07:49 | Day surgery (SDC) | payer OTHER, MEDICARE ==
[2023-10-01 11:27] VITALS: BMI 33.7
--- NOTE | 2023-10-03 18:14 | HP ---
HISTORY AND PHYSICAL DATE OF SURGERY: 10/04/2023. HISTORY OF PRESENT ILLNESS: Thee Morse is a 38-year-old gentleman seen with progressive right shoulder pain. Options were discussed with him. He elected to proceed with right shoulder arthroscopy. Consent was obtained. Preoperative clearance was provided by Dr. Castillo. PAST MEDICAL HISTORY: Hypertension, hyperlipidemia, insulin-dependent diabetes, cardiovascular disease. PAST SURGICAL HISTORY: Cardiac catheterization with stent insertion. DAILY MEDICATIONS: 1. Amlodipine. 2. Aspirin. 3. Atorvastatin. 4. Jardiance. 5. Lisinopril. 6. Metformin. 7. Metoprolol. ALLERGIES: None. SOCIAL HISTORY: He denies current tobacco use. PHYSICAL EVALUATION OF THE RIGHT SHOULDER: Flexion is 140 degrees. Abduction is 80 degrees. External rotation is 30 degrees with weakness. He has tenderness along the anterolateral acromion as well as rotator cuff insertion site and acromioclavicular joint. Impingement is positive at 80 degrees. Drop-arm sign is positive. Cross-body adduction sign is positive. Distal neurovascular exam is intact. IMAGING STUDIES: Right shoulder radiographs revealed a type 2 acromion evidence for acromioclavicular joint osteoarthritis and cystic changes of the tuberosity. MRI of right shoulder revealed rotator cuff tear, slap labral tear, and adhesive capsulitis. IMPRESSION: 1. Right shoulder impingement with rotator cuff tear. 2. Right shoulder labral tear. 3. Right shoulder acromioclavicular joint osteoarthritis. 4. Right shoulder adhesive capsulitis. 5. Hypertension. 6. Hyperlipidemia. 7. Insulin-dependent diabetes. PLAN: Right shoulder arthroscopy with subacromial decompression, arthroscopic rotator cuff repair, Helen, and debridement versus repair, labral tear. MMODL / IJN: [id number] /
[~2023-10-04 07:49] MED LIST: HYDROmorphone 0.5 MG/0.5 ML SYRINGE IVP PRN
[2023-10-04] MEDS: LACTATED RINGERS 1,000 ML IV SCH (08:38)
[2023-10-04] MEDS: ONDANSETRON 4 MG/2 ML VIAL IVP ONE (08:39)
[2023-10-04] MEDS: DEXAMETHASONE SOD PHOSPHATE 4 MG/ML 1 ML VIAL IV ONE (08:39)
[2023-10-04 08:43] LABS: Glucose,Whole Blood 186 mg/dL (70-110)
[2023-10-04] MEDS: fentaNYL (PF) 50 MCG/ML 2 ML AMP IVP ONE (09:13)
[2023-10-04] MEDS: MIDAZOLAM 2 MG/2 ML VIAL IVP ONE (09:13)
[2023-10-04] MEDS ORDERED: ONDANSETRON 4 MG/2 ML VIAL ONE (09:25)
[2023-10-04] MEDS ORDERED: ePHEDrine 50 MG/ML 1 ML VIAL ONE (09:25)
[2023-10-04] MEDS ORDERED: ROPIVACAINE 5 MG/ML 30 ML VIAL ONE (09:25)
[2023-10-04] MEDS ORDERED: SUCCINYLCHOLINE CHLORIDE 200 MG/10 ML VIAL IV ONE (09:25)
[2023-10-04] MEDS ORDERED: PHENYLEPHRINE 10 MG/ML VIAL ONE (09:25)
[2023-10-04] MEDS ORDERED: PROPOFOL 10 MG/ML 20 ML VIAL IV ONE (09:25)
[2023-10-04] MEDS ORDERED: LIDOCAINE 1% INJ 10MG/ML (20 ML MDV) ONE (09:25)
--- NOTE | 2023-10-04 11:07 | P.OP ---
Date of Procedure: 10/04/23 Preoperative Diagnosis: Right shoulder impingement Postoperative Diagnosis: 1. Right shoulder rotator cuff tear 2. Right shoulder bicipital tendinitis 3. Right shoulder impingement 4. Right shoulder acromioclavicular joint osteoarthritis 5. Right shoulder superficial labral tear Procedure(s) Performed: 1. Right shoulder arthroscopic rotator cuff repair 2. Right shoulder arthroscopic biceps tenodesis 3. Right shoulder arthroscopic subacromial decompression 4. Right shoulder arthroscopic Helen procedure 5. Right shoulder arthroscopic debridement labral tear Implants: 1Arthrex 4.75 swivel lock anchor 1Arthrex 5.5 swivel lock anchor Anesthesia: GETA, regional (Interscalene block) Surgeon: Onur Higgins Apparel Pattern Maker #1: Jaquan Patton Estimated Blood Loss (ml): 8 Pathology: none sent Condition: stable Disposition: PACU Indications for Procedure: 38-year-old gentleman seen with progressive right shoulder pain. After having treatment options discussed, he elected to proceed with arthroscopy. Operative Findings: See description of procedure Description of Procedure: Patient underwent an interscalene block by department of anesthesia. The patient was then taken to the operative suite. The patient underwent a general anesthetic by the department of anesthesia. The patient was placed into a lateral position and secured. There was appropriate padding of the bony prominence. Right shoulder was then prepped and draped in normal sterile orthopedic fashion. We placed the extremity in 10 pounds of longitudinal traction. A posterior incision was now made for a posterior working portal site. The trocar and cannula were inserted into the glenohumeral joint. Arthroscopy was initiated. Spinal needle was now inserted anteriorly, to ascertain the anterior working portal site. An incision was now made in that area, a trocar was inserted followed by a probe. There was hyperemia involving long head biceps tendon consistent with bicipital tendinitis. There was superficial tearing of the superior labrum. The remaining labrum was stable. There was no chondromalacia. I debrided out the superficial labral tear. I now decided to proceed with arthroscopic biceps tenodesis. I introduced the cannula through the anterior portal site. I now passed a loop and tack type stitch through the biceps tendon and released it from the superior anchor. With the assistance of Santiago RIVERA I punched a hole at the interval for insertion of an anchor. The suture line was passed through the eyelet of an Arthrex 4.75 swivel lock anchor. I placed the eyelet into our preplanned hole. I held in position while Santiago RIVERA tensioned the suture and deployed the anchor with good fixation noted. The residual suture line was now clipped. Utilizing the posterior working portal site, the trocar and cannula were inserted into the subacromial space. Arthroscopy initiated. I made an incision 2 fingerbreadths lateral to the acromion. I introduced my trocar followed by my ArthroCare ablator. I now began ablating thick subacromial bursal tissue, which exposed the undersurface of the anterior acromion. There was diminished subacromial space. There was a very prominent anterior acromion. A motorized bur was introduced and a subacromial decompression was performed. I also excised some osteophytes off the inferior aspect of the distal clavicle. The AC joint was visualized and noted to be fairly arthritic. The motorized bur was introduced in the anterior portal site and a Helen procedure was performed without difficulty removing 8 mm of bone off the distal clavicle, decompressing the AC joint nicely. I turned my attention to the rotator cuff. There was a 1 cm rotator cuff tear. I debrided the margins getting down to stable tendon tissue. I abraded the footprint with a motorized bur. With the assistance of Santiago RIVERA I passed 2 inverted mattress sutures through good bites of rotator cuff tendon. I punched a hole in the footprint area for insertion of an anchor. All 4 limbs of suture were passed through the eyelet of an Arthrex 5.5 swivel lock anchor. I placed the eyelet into the preplanned hole. I held in position while Santiago RIVERA tensioned all 4 limbs of suture and deployed the anchor with good fixation noted. All residual suture limbs were now clipped. We had good compression of the tendon along the entire footprint. Instruments now removed from the portal sites. All portal sites were approximated with nylon suture. Sterile dressings were applied followed by a shoulder sling. Jaquan RIVERA assisted in this complex case. The patient was awakened, transferred to a bed, and taken to recovery in stable condition.
[2023-10-04 11:21] VITALS: TEMP 97.4
--- NOTE | 2023-10-04 11:27 | P.ANPRN ---
Procedure Note - Anesthesia - Nerve Block Performed Right Interscalene Single Time Out Performed: Yes (911) Date of Procedure: 10/04/23 Procedure Start Time: 09:13 Procedure Stop Time: 09:18 Location of Patient: PreOp Indication: Acute Post-Operative Pain, Requested by Surgeon Specifically requested for management of pain by DrAbraham: Onur Higgins Sedation Type: Sedate with meaningful contact maintained Preparation: Sterile Prep Position: Supine Catheter: None Needle Types: Pajunk Needle Gauge: 21 Ultrasound used to visualize needle placement: Yes Ultrasound used to observe medication spread: Yes Injectate: 0.5% Ropivacaine (see comment for volume) (30cc) Blood Aspirated: No Pain Paresthesia on Injection Noted: No Resistance on Injection: Normal Image Stored and Saved: Yes Events: Uneventful and Well Tolerated
[2023-10-04 11:32] LABS: Glucose,Whole Blood 182 mg/dL (70-110)
[2023-10-04 12:05] VITALS: RESP 16
[2023-10-04 12:52] VITALS: BP 134/85; PULSE 86
== END 2023-10-04 12:45 | disposition home or self-care (01) ==
LOC: OR 07:49
PROVIDERS: ATTEND Orthopaedic Surgery
DX: M75.101 Unspecified rotator cuff tear or rupture of right shoulder, not specified as traumatic (principal); M75.21 Bicipital tendinitis, right shoulder; M75.41 Impingement syndrome of right shoulder; M19.011 Primary osteoarthritis, right shoulder; S43.431A Superior glenoid labrum lesion of right shoulder, initial encounter; G89.18 Other acute postprocedural pain; I10 Essential (primary) hypertension; E78.5 Hyperlipidemia, unspecified; E11.9 Type 2 diabetes mellitus without complications; I25.10 Atherosclerotic heart disease of native coronary artery without angina pectoris; I25.2 Old myocardial infarction; G47.33 Obstructive sleep apnea (adult) (pediatric); K21.9 Gastro-esophageal reflux disease without esophagitis; Z79.4 Long term (current) use of insulin; Z79.82 Long term (current) use of aspirin; Z79.84 Long term (current) use of oral hypoglycemic drugs; Z79.899 Other long term (current) drug therapy; Z98.890 Other specified postprocedural states; Z79.01 Long term (current) use of anticoagulants; X58.XXXA Exposure to other specified factors, initial encounter
CPT/HCPCS: 64415; 29827; 29828; 29824; 29826; C1713 ×2; J2250; J0330; J1100; J0690; J2405; J2001; J3010; J2795; J2704; J2371

== ENCOUNTER → 2024-12-10 | Outpatient (CLI) | payer OTHER, MEDICARE | END | disposition home or self-care (01) | LOC: RADUSWWP 15:53 | PROVIDERS: ATTEND Family Medicine | DX: Z53.9 Procedure and treatment not carried out, unspecified reason (principal) ==